=== PATIENT | male | born 1985 | race Hispanic/Latino ===

== ENCOUNTER 2024-10-09 18:20 | Emergency (ER) | payer MEDICAID ==
[~2024-10-09] VITALS: Ht 170.2 cm; Wt 68.0 kg
[2024-10-09 19:15] LABS: HEMATOCRIT 42.4 % (42-54); MEAN CORPUSCULAR HEMOGLOBIN 28.7 pg (27.0-33.0); MEAN CORPUSCULAR HGB CONC 34.4 g/dL (32.0-36.0); MEAN CORPUSCULAR VOLUME 83.5 fL (79-99); PLATELET COUNT (AUTO) 210 K/uL (130-400); RED BLOOD CELL COUNT(AUTO) 5.08 MIL/uL (4.50-6.20); RED CELL DISTRIBUTION WIDTH 13.2 % (11.0-15.5); WHITE BLOOD COUNT (AUTO) 5.7 K/uL (4.8-10.8)
[2024-10-09 19:23] LABS: CREATININE 0.9 mg/dL (0.5-1.3); POTASSIUM 3.9 mmol/L (3.5-5.1)
[2024-10-09 19:29] LABS: EOSINOPHILS % (MANUAL) 4 % (1-6); LYMPHOCYTES % (MANUAL) 31 % (22-44); MONOCYTES % (MANUAL) 7 % (2-9); SEGMENTED NEUTROPHILS % 58 % (40-70); TOTAL CELLS COUNTED 100
[2024-10-09 19:30] LABS: MAN.DIFF COMMENT-IMPRESSION MANUAL DIFFERENTIAL; PLATELET MORPHOLOGY COMMENT ADEQUATE
--- NOTE | 2024-10-09 20:08 | EKG ---
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
--- NOTE | 2024-10-09 20:31 | ERN ---
General Chief Complaint: Cellulitis Stated Complaint: SHARP PAIN IN RIGHT PEC Time Seen by MD: 18:22 Time Seen by Midlevel: 18:22 Source: patient History of Present Illness Initial Comments 39-year-old male who presents to the emergency department due to right-sided chest pain. Patient reports initiated approximately 2:30 p.m. as a burning sen sation. Denies any nausea, vomiting, abdominal pain, radiating pain or further associated symptoms. Denies any new product use, insect bite, or injuries. Patient reports previous similar episode to the left side. PMHx cerebral palsy Allergies: Coded Allergies: Iodinated Contrast Media (Unverified Allergy, Unknown, 10/09/24) Penicillins (Unverified Allergy, Unknown, 10/09/24) acetaminophen (Unverified Allergy, Unknown, 10/09/24) ceftriaxone (Unverified Allergy, Unknown, 10/09/24) Past Medical History Past Medical History: Other Medical History Other: CEREBRALPALSY Past Surgical History: Other Surgical History Other: SX A BABY ROS Dictation Constitutional: Negative for fever,chills, and weight loss Eyes: Negative for injury, pain,redness, and discharge ENT: Negative for injury,pain or swelling Cardiovascular: Positive for chest pain Negative for palpitations, and edema Respiratory: Negative for shortness of breath, cough, and wheezing, Abdomen/GI: Negative for abdominal pain, nausea, vomiting, diarrhea, and constipation Back: Negative for injury and pain : Negative for painful urination, bleeding or discharge MS/Extremity: Negative for injury and deformity Skin: Negative for rash, and discoloration Neuro: Negative for headache, weakness, numbness, tingling, and seizure Psych: Negative for suicide ideation, homicidal ideation, and hallucinations Physical Exam Physical Exam Dictation General: awake, alert, no acute distress Head/Face: Normocephalic, atraumatic Eyes: PERRL, EOMI, normal conjunctiva ENT: oral cavity clear, oral mucosa moist Neck: Normal range of motion, supple Chest: Pain reproducible on palpation to the right side of the chest Cardiovascular: RRR, normal S1/S2 Respiratory: CTAB, no respiratory distress, No rales or wheezes Skin: Warm, dry, normal turgor, no rash MS/Extremity: Pulses equal, no cyanosis, neurovascular intact, FROM Neuro: COAx4, GCS 15, no neurological deficits Psych: Normal behavior, mood, and affect normal Results Laboratory and Microbiology Lab and Micro Result Laboratory Tests Test 10/09/24 19:10 White Blood Count 5.7 K/uL (4.8-10.8) Red Blood Count 5.08 MIL/uL (4.50-6.20) Hemoglobin 14.6 g/dL (14.0-18.0) Hematocrit 42.4 % (42-54) Mean Corpuscular Volume 83.5 fL (79-99) Mean Corpuscular Hemoglobin 28.7 pg (27.0-33.0) Mean Corpuscular Hemoglobin Concent 34.4 g/dL (32.0-36.0) Red Cell Distribution Width 13.2 % (11.0-15.5) Platelet Count 210 K/uL (130-400) Mean Platelet Volume 11.4 fL (7.5-10.5) H Segmented Neutrophils % 58 % (40-70) Lymphocytes % (Manual) 31 % (22-44) Monocytes % (Manual) 7 % (2-9) Eosinophils % (Manual) 4 % (1-6) Nucleated Red Blood Cells 0.0 % (0.0-0.19) Differential Comment MANUAL DIFFERENTIAL White Cell Morphology Comment Platelet Morphology Comment ADEQUATE Red Blood Cell Morphology ANISO 1+ Sodium Level 136 mmol/L (136-145) Potassium Level 3.9 mmol/L (3.5-5.1) Chloride Level 101 mmol/L (101-111) Carbon Dioxide Level 32 mmol/L (21-32) Blood Urea Nitrogen 15 mg/dL (7-18) Creatinine 0.9 mg/dL (0.5-1.3) Glomerular Filtration Rate Calc 113 mL/min (>90) Random Glucose 100 mg/dL (70-105) Total Calcium 8.8 mg/dL (8.5-10.1) Troponin I High Sensitivity < 4 ng/L (4-75) L Labs Reviewed?: Yes EKG/XRAY/US/CT/MRI EKG Comment Date: 10/09/24 Time: 20:05 Rate:88 EKG interpretation: Normal sinus rhythm, no STEMI, normal EKG Reviewed by ED Attending MDM MDM: Differential diagnosis: Atypical chest pain, musculoskeletal chest pain, cellulitis Rationale: 39-year-old male who presents to the emergency department due to right-sided chest pain. Patient reports initiated approximately 2:30 p.m. as a burning sensation. Denies any nausea, vomiting, abdominal pain, radiating pain or further associated symptoms. Denies any new product use, insect bite, or injuries. Patient reports previous similar episode to the left side. PMHx cerebral palsy Mild scattered rash noted to the right pack for which family member states it is chronic. Per physical examination patient is in no acute distress, nonlabored breathing, pain is reproducible on palpation to the right chest. Labs obtained are nonspecific. EKG within normal limits. Negative troponin. Patient was educated on findings and diagnosis. Advised to follow up with PCP. Return to the emergency department if any worsening symptoms. Patient verbalized understanding. Patient stable for discharge. There are no social concerns with this patient. I independently interpreted the test that were performed, results were reviewed by me and considered findings on radiology if ordered. Medical management and examination interpretation discussions were had by me with other qualified healthcare professionals as indicated for the patient's care. ED Course Orders Procedure Category Date Status Time Chest 1vw RAD 10/09/24 Taken 18:59 Cbc W Manual Diff LAB 10/09/24 Complete 18:59 Basic Metabolic Panel LAB 10/09/24 Complete 18:59 Troponin I High LAB 10/09/24 Complete Sensitivity 18:59 12 Lead Ekg Tracing- EKG 10/09/24 Complete Technical 18:59 Ibuprofen 200 Mg PHA 10/09/24 Complete Tablet (Motrin) 19:30 Current Medications Medications (Trade) Dose Ordered Sig/Carmen Route PRN Reason Start Time Stop Time Status Last Admin Dose Admin Ibuprofen (moTRIN) 400 mg ONCE ONCE PO 10/09/24 19:30 10/09/24 19:32 DC Vital Signs Date Time Temp Pulse Resp B/P (MAP) Pulse Ox O2 Delivery O2 Flow Rate FiO2 10/09/24 18:24 98.1 100 16 124/66 99 Room Air 0 DX & DISP Disposition: Discharge Departure Impression: Primary Impression: Chest pain, atypical Additional Impression: Musculoskeletal chest pain Condition: Stable Additional Instructions: Discharge home. Rest. Follow up with primary care in 24 hours. Return to the ER for any acute changes or worsening symptoms. If any medications were prescribed take as directed. Okay to continue home medications unless otherwise discussed during your visit in the emergency room today. Patient was also advised to follow-up with primary care physician in 1 to 2 days for continued monitoring. Referrals: SELF,REFERRAL (PCP) I participated in the following activities of this patient's care: For this patient encounter, I reviewed the PA or HSE SPECIALIST documentation, treatment plan, and medical decision making. I did not have [id number] time with this patient. I will sign as the reviewing DrRegine And agree with the treatment plan and disposit ion. LAURA SOTELO Oct 09, 2024 20:31
--- NOTE | 2024-10-09 20:33 | HMCIMG ---
CHEST 1VW REASON: Chest pain COMPARISON: None. FINDINGS: Single view of the chest was obtained. Lungs are clear. Heart size is normal. There is no pulmonary vascular congestion. Mediastinum and bony thorax appear unremarkable. IMPRESSION: 1. Normal single view chest x-ray.
[2024-10-09] MEDS: ibuPROFEN 200 MG TAB PO ONE (20:39)
[2024-10-09 20:41] VITALS: BP 122/68; PULSE 92; RESP 16; TEMP 98.1; O2SAT 99
== END 2024-10-09 20:43 | disposition home or self-care (01) ==
LOC: EDH 18:20
DX: R07.89 Other chest pain (principal); Z88.0 Allergy status to penicillin; Z88.1 Allergy status to other antibiotic agents; Z91.041 Radiographic dye allergy status
CPT/HCPCS: 36415; 71045; 80048; 84484; 85025; 93005; 99285

== ENCOUNTER 2024-10-13 12:23 | Emergency (ER) | payer MEDICAID ==
[~2024-10-13] VITALS: Ht 170.2 cm; Wt 68.0 kg
[2024-10-13 12:43] VITALS: BP 146/86; PULSE 86; RESP 20; TEMP 98.6; O2SAT 100
[2024-10-13 13:09] LABS: APPEARANCE,URINE CLEAR (CLEAR); BILIRUBIN,URINE NEGATIVE (NEGATIVE); COLOR,URINE LIGHT-YELLOW (YELLOW); GLUCOSE, URINE (UA) NEGATIVE (NEGATIVE); KETONES,URINE NEGATIVE (NEGATIVE); LEUKOCYTE ESTERASE ,URINE NEGATIVE Leu/uL (NEGATIVE); MUCUS,URINE RARE LPF (None Seen); NITRATE,URINE NEGATIVE (NEGATIVE); OCCULT BLOOD,URINE NEGATIVE (NEGATIVE); PH,URINE 6.5 (5.0-8.0); PROTEIN,URINE NEGATIVE (NEGATIVE); RBC,URINE 0-1 /HPF (0-1); UROBILINOGEN,URINE 0.2 mg/dL (0.2-1.0); WBC,URINE 0-1 /HPF (0-1)
[2024-10-13] MEDS: NAPROXEN 500 MG TABLET PO ONE (13:29)
--- NOTE | 2024-10-13 13:33 | ERN ---
General Chief Complaint: Painful Urination Stated Complaint: POSSIBLE UTI Source: patient, family History of Present Illness Initial Comments Patient is a 39-year-old male coming in to be evaluated for urine discomfort. He states that he has been having to discomfort for a couple of days states he came in for evaluation to see if he might have a UTI. No fever no chills no nausea no vomiting. Allergies: Coded Allergies: Iodinated Contrast Media (Unverified Allergy, Unknown, 10/09/24) Penicillins (Unverified Allergy, Unknown, 10/09/24) acetaminophen (Unverified Allergy, Unknown, 10/09/24) ceftriaxone (Unverified Allergy, Unknown, 10/09/24) Past Medical History Past Medical History: Other Medical History Other: CEREBRALPALSY Past Surgical History: Other Surgical History Other: SX A BABY ROS Dictation CONSTITUTIONAL: No chills, no fever, no weakness, no diaphoresis, no malaise. HEAD/FACE: No signs of trauma. EENT: No eye pain, no blurred vision, no tearing, no double vision, no ear p ain, no ear discharge, no nose pain, no nasal congestion, no throat pain, no throat swelling, no mouth pain. RESPIRATORY: No cough, no orthopnea, no SOB, no stridor, no wheezing. CARDIOVASCULAR: No chest pain, no edema, no palpitations, no syncope. GASTROINTESTINAL/ABDOMINAL: No abdominal pain, no constipation, no diarrhea, no nausea, no vomiting. GENITOURINARY: No abnormal discharge, no dysuria, no frequent urination, no hematuria. No complaints of pain in the genitals. MUSCULOSKELETAL: No back pain, no gout, no joint pain, no joint swelling, no muscle pain, no muscle stiffness, no neck pain. INTEGUMENTARY: No change in color, no change in hair/nails, no dryness, no lesion, no lumps, no rash. NEUROLOGICAL/PSYCH: No anxiety, not depressed, no emotional problem, no headache, no numbness, no pre-existing deficit, no history of seizures, no tremors, no weakness. HEMATOLOGIC/LYMPHATIC: Not anemic, no history of blood clots, no apparent bleeding, no bruising, glands not swollen. All Systems Negative, Except as Noted. Physical Exam Physical Exam Dictation VITAL SIGNS: Reviewed. GENERAL APPEARANCE: Alert, oriented x3, no acute distress, obese. HEAD AND FACE: Non-traumatic. EYES: PERRL, pink conjunctivas, eyelid no trauma, anterior chamber clear. EARS: Pinnas intact and no signs of trauma or erythema. Ear canals clear and no discharge. TMs no erythema. NOSE: No discharge, no bleeding. OROPHARYNX: Mouth normal, teeth no caries, tongue pink. Pharynx clear, no erythema. Tonsils no exudates, no abscesses noted. Mucous membrane moist. NECK: Supple, non-tender, no thyromegaly, no masses, no JVD, no bruits. BREAST: Deferred. CHEST: No tenderness, no crepitus, no paradoxical movement, no retractions. LUNGS: Clear, well-ventilated, symmetric, no rales, no wheezing, no rhonchi, no stridor, good breath sounds bilaterally. HEART: Regular rate, regular rhythm, no murmur, no gallops. VASCULAR: No peripheral edema. ABDOMEN: Soft, positive bowel sounds, nondistended, no guarding, nontender, no rebound, no masses no hepatomegaly, no splenomegaly, no Lamar's sign, no hernias. RECTAL: Deferred. GENITAL: Deferred. NEUROLOGICAL: Normal speech, gross motor function intact, gross sensory function intact. MUSCULOSKELETAL: Neck nontender, full range of motion, back nontender, full range of motion. EXTREMITIES: Nontender, full range of motion. SKIN: Color pink, dry, no turgor, no rash, no lacerations, no abrasions, no contusions. LYMPHATICS: Deferred. Results Laboratory and Microbiology Lab and Micro Result Laboratory Tests Test 10/13/24 12:44 Urine Color LIGHT-YELLOW (YELLOW) Urine Appearance CLEAR (CLEAR) Urine pH 6.5 (5.0-8.0) Urine Specific [place] 1.020 (1.001-1.031) Urine Protein NEGATIVE mg/dL (NEGATIVE) Urine Glucose (UA) NEGATIVE mg/dL (NEGATIVE) Urine Ketones NEGATIVE mg/dL (NEGATIVE) Urine Occult Blood NEGATIVE (NEGATIVE) Urine Nitrate NEGATIVE (NEGATIVE) Urine Bilirubin NEGATIVE mg/dL (NEGATIVE) Urine Urobilinogen 0.2 mg/dL (0.2-1.0) Urine Leukocyte Esterase NEGATIVE Nito/uL Urine RBC 0-1 /HPF (0-1) Urine WBC 0-1 /HPF (0-1) Urine Bacteria None /HPF (None Seen) Labs Reviewed?: Yes MDM MDM: Differential diagnosis: Dysuria, UTI, dehydration, Patient is a 39-year-old gentleman coming in to be evaluated for dysuria. Per patient he has been having dysuria and believes he might have a UTI. Urinary analysis negative for UTI. Patient will be discharged in stable condition. I advised him appropriate follow up with PCP in 1-2 days. ED Course Orders Procedure Category Date Status Time Urinalysis LAB 10/13/24 Complete W/Microscopic 12:49 Naproxen (Naprosyn) PHA 10/13/24 Complete 13:00 Current Medications Medications (Trade) Dose Ordered Sig/Carmen Route PRN Reason Start Time Stop Time Status Last Admin Dose Admin Naproxen (Naprosyn) 500 mg ONCE ONCE PO 10/13/24 13:00 10/13/24 13:01 DC 10/13/24 13:29 Vital Signs Date Time Temp Pulse Resp B/P (MAP) Pulse Ox O2 Delivery O2 Flow Rate FiO2 10/13/24 12:43 98.6 86 20 146/86 100 Room Air* 0 21 10/13/24 12:40 97.9 91 16 143/83 100 Room Air 0 DX & DISP Disposition: Discharge Departure Impression: Primary Impression: Dehydration Additional Impression: History of dysuria Condition: Stable Additional Instructions: FOLLOW-UP WITH PRIMARY CARE PROVIDER IN 1 TO 2 DAYS. TAKE MEDICATIONS DIRECTED HERE IN THE EMERGENCY ROOM. OKAY TO CONTINUE HOME MEDICATIONS UNLESS OTHERWISE DISCUSSED DURING YOUR VISIT IN THE EMERGENCY ROOM TODAY. RETURN TO YOUR NEAREST EMERGENCY ROOM IF SYMPTOMS WORSEN OR IF THERE IS NO IMPROVEMENT. CALL 911 IF YOU NEED IMMEDIATE ASSISTANCE. TAKE TYLENOL [id number] NEEDED AND IF NO CONTRAINDICATIONS ARE PRESENT. INCREASE ORAL HYDRATION. A WOUND CULTURE OR URINE CULTURE WAS ORDERED HERE IN THE EMERGENCY ROOM DEPARTMENT PLEASE FOLLOW-UP WITH PRIMARY CARE PROVIDER AND ADVISE THEM TO GET REPEAT PORTS FROM OUR FACILITY. IF YOU HAD ANY EHSAN WRAP/SPLINTS THAT WERE APPLIED HERE, PL EASE DO NOT REMOVE THEM UNTIL YOU SEE YOUR PRIMARY CARE OR SPECIALTY. Referrals: Referrals: FABI NIELSEN MD (PCP) Time of Disposition: 13:33 BAYRON AGOSTO MD Oct 13, 2024 13:33
== END 2024-10-13 13:35 | disposition home or self-care (01) ==
LOC: EDH 12:23
DX: E86.0 Dehydration (principal); Z88.0 Allergy status to penicillin; Z88.1 Allergy status to other antibiotic agents; Z91.041 Radiographic dye allergy status; Z98.890 Other specified postprocedural states
CPT/HCPCS: 81001; 99283

== ENCOUNTER 2024-10-19 10:35 | Emergency (ER) | payer MEDICAID ==
[~2024-10-19] VITALS: Ht 170.2 cm; Wt 68.0 kg
--- NOTE | 2024-10-19 10:41 | ERN ---
ED Note History of Present Illness Stated Complaint: DEHYDRATED, FATIGUE Chief Complaint: Fatigue Time Seen by MD: 10:36 Dictation: PATIENT IS A 39-YEAR-OLD MALE HERE WITH HIS FATHER WITH COMPLAINTS OF BEING THIRSTY AND FEELING WEAK FOR THE LAST SEVERAL WEEKS. NO NAUSEA VOMITING NO DIARRHEA NO FEVER NO CHILLS. HE STATES HE HAS ALREADY BEEN TO [facility] ON THE September AND WAS TOLD TO GO SEE HIS PRIMARY CARE DOCTOR HOWEVER WHEN HE SAW HIS PRIMARY CARE DOCTOR THEY DID NOT DO ANYTHING ABOUT IT. THEY TOLD HIM JUST TO DRINK SOME WATER. Allergies: Coded Allergies: Iodinated Contrast Media (Unverified Allergy, Unknown, 10/09/24) Penicillins (Unverified Allergy, Unknown, 10/09/24) acetaminophen (Unverified Allergy, Unknown, 10/09/24) ceftriaxone (Unverified Allergy, Unknown, 10/09/24) Past Medical History Past Medical History: Other Additional Past Medical Hx: CEREBRALPALSY Surgical History: Other Surgical History Other: SX A BABY RN Note Reviewed/Agreed w/PFSH: Yes Review of System Dictation CONSTITUTIONAL: NEGATIVE EXCEPT FOR HPI WEAKNESS/THIRST HEAD/FACE: NEGATIVE EXCEPT FOR HPI EENT: NEGATIVE EXCEPT FOR HPI RESPIRATORY: NEGATIVE EXCEPT FOR HPI GASTROINTESTINAL/ABDOMINAL: NEGATIVE EXCEPT FOR HPI GENITOURINARY: NEGATIVE EXCEPT FOR HPI MUSCULOSKELETAL: NEGATIVE EXCEPT FOR HPI INTEGUMENTARY: NEGATIVE EXCEPT FOR HPI NEUROLOGICAL/PSYCH: NEGATIVE EXCEPT FOR HPI HEMATOLOGIC/LYMPHATIC: NEGATIVE EXCEPT FOR HPI ALL SYSTEMS NEGATIVE, EXCEPT NOTED ABOVE. 13 POINT REVIEW OF SYSTEMS ASSESSED AND ALL NEGATIVE EXCEPT FOR ABOVE. Initial Vital Sign VS Vital Signs Date Time Temp Pulse Resp B/P (MAP) Pulse Ox O2 Delivery O2 Flow Rate FiO2 10/19/24 10:40 98.2 83 18 111/72 100 Room Air 10/19/24 11:45 0 21 Physical Exam Dictation VITAL SIGNS REVIEWED GENERAL APPEARANCE: ALERT, ORIENTED X 3, NO ACUTE DISTRESS, WELL DEVELOPED, NOURISHED. HEAD AND FACE: NON-TRAUMATIC. EYES: PERRL, PINK CONJUNCTIVAS, EYELID NO TRAUMA, ANTERIOR CHAMBER WITH ARCUS SENILIS. EARS: PINNAS INTACT AND NO SIGNS OF TRAUMA OR ERYTHEMA EAR CANALS CLEAR AND NO DISCHARGE TM NO ERYTHEMA NOSE: NO DISCHARGE, NO BLEEDING. OROPHARYNX: MOUTH NORMAL, TONGUE PINK, PHARYNX CLEAR,NO ERYTHEMA, TONSILS NO EXUDATES, NO ABSCESSES NOTED, MUCOUS MEMBRANE MOIST NECK: SUPPLE, NON-TENDER, NO THYROMEGALY, NO MASSES, NO JVD, NO BRUITS BREAST:DEFERRED CHEST:NO TENDERNESS, NO CREPITUS, NO PARADOXICAL MOVEMENT, NO RETRACTIONS LUNGS:CLEAR, WELL-VENTILATED, SYMMETRIC, NO RALES, NO WHEEZING, NO RHONCHI, NO STRIDOR, GOOD BREATH SOUNDS BILATERALLY HEART: REGULAR RATE, REGULAR RHYTHM, NO MURMUR, NO GALLOPS VASCULAR: NO PERIPHERAL EDEMA, ABDOMEN: SOFT, POSITIVE BOWEL SOUNDS, NONDISTENDED, NO GUARDING, NONTENDER, NO REBOUND, NO MASSES NO HEPATOMEGALY, NO SPLENOMEGALY, NO NARVAEZ'S SIGN, NO HERNIAS. RECTAL: DEFERRED GENITAL: DEFERRED NEUROLOGICAL: NORMAL SPEECH, MOTOR FUNCTION INTACT, SENSORY FUNCTION INTACT MUSCULOSKELETAL: NECK NONTENDER, FULL RANGE OF MOTION, BACK NONTENDER, FULL RANGE OF MOTION, EXTREMITIES: NONTENDER, FULL RANGE OF MOTION SKIN: COLOR PINK, DRY, NO TURGOR, NO RASH, NO LACERATIONS, NO ABRASIONS, NO CONTUSIONS. LYMPHATIC: DEFERRED Results (Laboratory/Radiology) Laboratory/Radiology Laboratory Tests Test 10/19/24 11:12 10/19/24 11:29 Urine Color YELLOW (YELLOW) Urine Appearance CLEAR (CLEAR) Urine pH 6.0 (5.0-8.0) Urine Specific [place] 1.029 (1.001-1.031) Urine Protein 10 mg/dL (NEGATIVE) H Urine Glucose (UA) 30 mg/dL (NEGATIVE) H Urine Ketones 60 mg/dL (NEGATIVE) H Urine Occult Blood NEGATIVE (NEGATIVE) Urine Nitrate NEGATIVE (NEGATIVE) Urine Bilirubin NEGATIVE mg/dL (NEGATIVE) Urine Urobilinogen 3 mg/dL (0.2-1.0) H Urine Leukocyte Esterase NEGATIVE Nito/uL Urine RBC 2-5 /HPF (0-1) H Urine WBC 0-1 /HPF (0-1) Urine Squamous Epithelial Cells RARE /HPF (0-2) Urine Bacteria None /HPF (None Seen) White Blood Count 4.9 K/uL (4.8-10.8) Red Blood Count 5.13 MIL/uL (4.50-6.20) Hemoglobin 14.5 g/dL (14.0-18.0) Hematocrit 43.5 % (42-54) Mean Corpuscular Volume 84.8 fL (79-99) Mean Corpuscular Hemoglobin 28.3 pg (27.0-33.0) Mean Corpuscular Hemoglobin Concent 33.3 g/dL (32.0-36.0) Red Cell Distribution Width 13.1 % (11.0-15.5) Platelet Count 190 K/uL (130-400) Mean Platelet Volume 11.1 fL (7.5-10.5) H Nucleated Red Blood Cells 0.0 % (0.0-0.19) Sodium Level 137 mmol/L (136-145) Potassium Level 4.2 mmol/L (3.5-5.1) Chloride Level 101 mmol/L (101-111) Carbon Dioxide Level 32 mmol/L (21-32) Blood Urea Nitrogen 16 mg/dL (7-18) Creatinine 0.9 mg/dL (0.5-1.3) Glomerular Filtration Rate Calc 113 mL/min (>90) Random Glucose 87 mg/dL (70-105) Total Calcium 8.8 mg/dL (8.5-10.1) Labs Reviewed?: Yes ED Course ED Course Orders Procedure Category Date Status Time Cbc Without LAB 10/19/24 Complete Differential 10:39 Basic Metabolic Panel LAB 10/19/24 Complete 10:39 Urinalysis Profile LAB 10/19/24 Complete 10:45 Vital Signs Date Time Temp Pulse Resp B/P (MAP) Pulse Ox O2 Delivery O2 Flow Rate FiO2 10/19/24 11:45 98.2 80 16 112/70 98 Room Air* 0 21 10/19/24 10:40 98.2 83 18 111/72 100 Room Air 1150/LABS ARE COMPLETELY UNREMARKABLE NO DEHYDRATION NO ELECTROLYTE IMBALANCE NO INFECTION NO ANEMIA PATIENT DISCHARGED HOME WITH HIS FATHER TO FOLLOW UP WITH HIS DOCTOR AT [facility] Medical Decision Making MDM MEDICAL DISCHARGE MAKING BASED ON BASIC LABS TO RULE OUT ELECTROLYTE IMBALANCE DEHYDRATION OR ANEMIA. ALL LABS ARE NEGATIVE. PATIENT DISCHARGED HOME WITH DIAGNOSIS OF WEAKNESS AND TO SEE HIS PRIMARY CARE DOCTOR AT [facility] DX & DISP Disposition: Discharge Departure Impression: Primary Impression: Weakness generalized Additional Impression: History of cerebral palsy Condition: Stable Additional Instructions: FOLLOW-UP WITH PRIMARY CARE PROVIDER IN 1 TO 2 DAYS. TAKE MEDICATIONS DIRECTED HERE IN THE EMERGENCY ROOM. OKAY TO CONTINUE HOME MEDICATIONS UNLESS OTHERWISE DISCUSSED DURING YOUR VISIT IN THE EMERGENCY ROOM TODAY. RETURN TO YOUR NEAREST EMERGENCY ROOM IF SYMPTOMS WORSEN OR IF THERE IS NO IMPROVEMENT. CALL 911 IF YOU NEED IMMEDIATE ASSISTANCE. TAKE TYLENOL OR MOTRIN [id number] NEEDED AND IF NO CONTRAINDICATIONS ARE PRESENT. INCREASE ORAL HYDRATION. A WOUND CULTURE OR URINE CULTURE WAS ORDERED HERE IN THE EMERGENCY ROOM DEPARTMENT PLEASE FOLLOW-UP WITH PRIMARY CARE PROVIDER AND ADVISE THEM TO GET REPEAT PORTS FROM OUR FACILITY. IF YOU HAD ANY EHSAN WRAP/SPLINTS THAT WERE APPLIED HERE, PLEASE DO NOT REMOVE THEM UNTIL YOU SEE YOUR PRIMARY CARE OR SPECIALTY. CONTINUE ALL YOUR MEDICATIONS AND TREATMENTS AT HOME FROM YOUR PRIMARY CARE DO CTOR AND SEE HIM TOMORROW FOR MANAGEMENT. Referrals: FABI NIELSEN MD (PCP) Time of Disposition: 11:55 I have reviewed the case, and I agree with, Diagnosis and Plan I performed a substantive portion of the visit. I have reviewed and personally made and approve the management plan that is documented in the notes by myself with JOÃO/resident. I acknowledged full responsibility for the patient's management plan. SARI STROUD NP Oct 19, 2024 10:41 PHYLLIS SRINIVASAN DO Oct 19, 2024 14:53
[2024-10-19 11:29] LABS: APPEARANCE,URINE CLEAR (CLEAR); BILIRUBIN,URINE NEGATIVE (NEGATIVE); COLOR,URINE YELLOW (YELLOW); GLUCOSE, URINE (UA) 30 mg/dL (NEGATIVE); KETONES,URINE 60 mg/dL (NEGATIVE); LEUKOCYTE ESTERASE ,URINE NEGATIVE Leu/uL (NEGATIVE); NITRATE,URINE NEGATIVE (NEGATIVE); OCCULT BLOOD,URINE NEGATIVE (NEGATIVE); PROTEIN,URINE 10 mg/dL (NEGATIVE); UROBILINOGEN,URINE 3 mg/dL (0.2-1.0)
[2024-10-19 11:30] LABS: ADD UA MICROSCOPIC YES
[2024-10-19 11:40] LABS: HEMATOCRIT 43.5 % (42-54); MEAN CORPUSCULAR HEMOGLOBIN 28.3 pg (27.0-33.0); MEAN CORPUSCULAR HGB CONC 33.3 g/dL (32.0-36.0); MEAN CORPUSCULAR VOLUME 84.8 fL (79-99); RED BLOOD CELL COUNT(AUTO) 5.13 MIL/uL (4.50-6.20); RED CELL DISTRIBUTION WIDTH 13.1 % (11.0-15.5); WHITE BLOOD COUNT (AUTO) 4.9 K/uL (4.8-10.8)
[2024-10-19 11:45] VITALS: BP 112/70; PULSE 80; RESP 16; TEMP 98.3; O2SAT 98
[2024-10-19 11:47] LABS: CREATININE 0.9 mg/dL (0.5-1.3); POTASSIUM 4.2 mmol/L (3.5-5.1)
[2024-10-19 11:48] LABS: MUCUS,URINE RARE LPF (None Seen); SQUAMOUS EPITHELIAL CELL,UR RARE /HPF (0-2); WBC,URINE 0-1 /HPF (0-1)
== END 2024-10-19 12:14 | disposition home or self-care (01) ==
LOC: EDH 10:35
DX: R53.1 Weakness (principal); G80.9 Cerebral palsy, unspecified; Z88.0 Allergy status to penicillin; Z88.1 Allergy status to other antibiotic agents; Z91.041 Radiographic dye allergy status
CPT/HCPCS: 36415; 80048; 81001; 85027; 99283

== ENCOUNTER 2024-10-23 23:08 | Emergency (ER) | payer MEDICAID ==
[~2024-10-23] VITALS: Ht 170.2 cm; Wt 68.0 kg
--- NOTE | 2024-10-23 23:27 | NUR ---
PER PT REQUEST NO IV INSERTION AT THIS TIME. PT WAS EDUCATED ABOUT THE IMPORTANCE OF IV INSERTION. PT VERBILIZED UNDERSTANDING OF EDUCATION. MILO BARLOW MADE AWARE.
[2024-10-23 23:41] LABS: BASOPHILS # (AUTO) 0.04 K/uL (0.00-0.20); BASOPHILS % (AUTO) 0.6 % (0.0-5.0); EOSINOPHILS # (AUTO) 0.24 K/uL (0.00-0.70); EOSINOPHILS % (AUTO) 3.6 % (0.0-8.0); HEMATOCRIT 44.2 % (42-54); IMMATURE GRANULOCYTE ABSOLUTE 0.02 K/uL (0-1); LYMPHOCYTES # (AUTO) 2.1 K/uL (1.0-4.8); LYMPHOCYTES % (AUTO) 31.1 % (21.0-51.0); MEAN CORPUSCULAR HEMOGLOBIN 28.2 pg (27.0-33.0); MEAN CORPUSCULAR HGB CONC 32.8 g/dL (32.0-36.0); MEAN CORPUSCULAR VOLUME 85.8 fL (79-99); MONOCYTES # (AUTO) 0.6 K/uL (0.1-1.0); MONOCYTES % (AUTO) 9.3 % (3.0-13.0); NEUTROPHILS # (AUTO) 3.7 K/uL (1.8-7.7); NEUTROPHILS % (AUTO) 55.1 % (40.0-77.0); PLATELET COUNT (AUTO) 209 K/uL (130-400); RED BLOOD CELL COUNT(AUTO) 5.15 MIL/uL (4.50-6.20); RED CELL DISTRIBUTION WIDTH 13.3 % (11.0-15.5); WHITE BLOOD COUNT (AUTO) 6.7 K/uL (4.8-10.8)
[2024-10-24] LABS: CREATININE 0.9 mg/dL (0.5-1.3); POTASSIUM 3.6 mmol/L (3.5-5.1)
[2024-10-24 00:06] LABS: B-TYPE NATRIURETIC PEPTIDE < 5 pg/mL (0-100)
--- NOTE | 2024-10-24 01:44 | ERN ---
ED Note History of Present Illness Stated Complaint: C/O CP WITH HEADACHE Chief Complaint: Chest Pain Time Seen by MD: 23:59 Time Seen by Midlevel: 23:59 Dictation: The patient is a 39-year-old male with a history of cerebral palsy who presents to the emergency department with complaints of right-sided chest pain onset 4:00 p.m.. Patient reports a sensation of bricks that only last a few seconds and then go away. Patient reports he had a headache prior to arrival but is now resolved. Denies any shortness of breath, cough, fevers, nausea or vomiting, dizziness. Patient denies any head trauma. Allergies: Coded Allergies: Iodinated Contrast Media (Unverified Allergy, Unknown, 10/09/24) Penicillins (Unverified Allergy, Unknown, 10/09/24) acetaminophen (Unverified Allergy, Unknown, 10/09/24) ceftriaxone (Unverified Allergy, Unknown, 10/09/24) Past Medical History Past Medical History: Other Additional Past Medical Hx: HX OF CEREBRAL PALSY Surgical History: Other Surgical History Other: SX A BABY RN Note Reviewed/Agreed w/PFSH: Yes Review of System Dictation Constitutional: Negative for fever,chills, and weight loss Eyes: Negative for injury, pain,redness, and discharge ENT: Negative for injury,pain or swelling Cardiovascular: Negative for , palpitations, and edema positive for chest pain Respiratory: Negative for shortness of breath, cough, and wheezing, Abdomen/GI: Negative for abdominal pain, nausea, vomiting, diarrhea, and constip ation Back: Negative for injury and pain : Negative for injury, bleeding and discharge MS/Extremity: Negative for injury and deformity Skin: Negative for rash, and discoloration Neuro: Negative for headache, weakness, numbness, tingling, and seizure Psych: Negative for suicide ideation, homicidal ideation, and hallucinations Initial Vital Sign VS Vital Signs Date Time Temp Pulse Resp B/P (MAP) Pulse Ox O2 Delivery O2 Flow Rate FiO2 10/23/24 23:16 98.2 82 20 117/64 97 Room Air 10/23/24 23:27 0 21 Physical Exam Dictation Vital Signs reviewed General Appearance: Alert, oriented x 3, no acute distress, well developed, nourished. Head and Face: non-traumatic. Eyes: PERRL, pink conjunctivas, eyelid no trauma, anterior chamber with arcus senilis. Ears: Pinnas intact and no signs of trauma or erythema ear canals clear and no discharge TM no erythema Nose: No discharge, no bleeding. Oropharynx: Mouth normal, tongue pink. pharynx clear,no erythema, tonsils no exudates, no abscesses noted, mucous membrane moist Neck: Supple, non-tender, no thyromegaly, no masses, no JVD, no bruits Breast:Deferred Chest:No tenderness, no crepitus, no paradoxical movement, no retractions Lungs:Clear, well-ventilated, symmetric, no rales, no wheezing, no rhonchi, no stridor, good breath sounds bilaterally Heart: Regular rate, regular rhythm, no murmur, no gallops Vascular: no peripheral edema, Abdomen: Soft, positive bowel sounds, nondistended, no guarding, nontender, no rebound, no masses no hepatomegaly, no splenomegaly, no Lamar's sign, no hernias. Rectal: Deferred Genital: Deferred Neurological: Normal speech, , sensory function intact Musculoskeletal: Neck nontender, full range of motion, back nontender, full range of motion, Extremities: nontender, limited range of motion to bilateral lower extremities, no swelling Skin: Color pink, dry, no turgor, no rash, no lacerations, no abrasions, no contusions. Lymphatic: Deferred Results (Laboratory/Radiology) Laboratory/Radiology Laboratory Tests Test 10/23/24 23:26 10/24/24 00:00 10/24/24 00:34 White Blood Count 6.7 K/uL (4.8-10.8) Red Blood Count 5.15 MIL/uL (4.50-6.20) Hemoglobin 14.5 g/dL (14.0-18.0) Hematocrit 44.2 % (42-54) Mean Corpuscular Volume 85.8 fL (79-99) Mean Corpuscular Hemoglobin 28.2 pg (27.0-33.0) Mean Corpuscular Hemoglobin Concent 32.8 g/dL (32.0-36.0) Red Cell Distribution Width 13.3 % (11.0-15.5) Platelet Count 209 K/uL (130-400) Mean Platelet Volume 11.5 fL (7.5-10.5) H Immature Granulocyte % (Auto) 0.3 % (0-1) Neutrophils (%) (Auto) 55.1 % (40.0-77.0) Lymphocytes (%) (Auto) 31.1 % (21.0-51.0) Monocytes (%) (Auto) 9.3 % (3.0-13.0) Eosinophils (%) (Auto) 3.6 % (0.0-8.0) Basophils (%) (Auto) 0.6 % (0.0-5.0) Neutrophils # (Auto) 3.7 K/uL (1.8-7.7) Lymphocytes # (Auto) 2.1 K/uL (1.0-4.8) Monocytes # (Auto) 0.6 K/uL (0.1-1.0) Eosinophils # (Auto) 0.24 K/uL (0.00-0.70) Basophils # (Auto) 0.04 K/uL (0.00-0.20) Absolute Immature Granulocyte (auto 0.02 K/uL (0-1) Nucleated Red Blood Cells 0.0 % (0.0-0.19) Sodium Level 137 mmol/L (136-145) Potassium Level 3.6 mmol/L (3.5-5.1) Chloride Level 102 mmol/L (101-111) Carbon Dioxide Level 29 mmol/L (21-32) Blood Urea Nitrogen 19 mg/dL (7-18) H Creatinine 0.9 mg/dL (0.5-1.3) Glomerular Filtration Rate Calc 113 mL/min (>90) Random Glucose 89 mg/dL (70-105) Total Calcium 9.3 mg/dL (8.5-10.1) Total Creatine Kinase 45 U/L (21-232) B-Type Natriuretic Peptide < 5 pg/mL (0-100) Troponin I < 0.05 ng/mL (0.00-0.05) Troponin I High Sensitivity < 4 ng/L (4-75) L Lipase 55 U/L (16-77) Labs Reviewed?: Yes EKG: (+) rhythm (Sinus rhythm) EKG Comment: Date:10/23/24 Time:2313 Ventricular rate:74 MS interval:131 QRS duration:89 QT/QTc:352 EKG interpretation: Sinus rhythm Reviewed by ED Attending no STEMI ED Course ED Course Orders Procedure Category Date Status Time Vital Signs Per CPOE 10/23/24 Transmitted Routine 23:15 B-Type Natriuretic LAB 10/23/24 Complete Peptide 23:15 Chest 1vw RAD 10/23/24 Taken 23:15 12 Lead Ekg Tracing- EKG 10/23/24 Logged Technical 23:15 Oxygen By Nc/Pulse Ox CPOE 10/23/24 Transmitted 23:15 Maintain Iv CPOE 10/23/24 Transmitted 23:15 Iv Insertion CPOE 10/23/24 Transmitted 23:15 Cardiac Monitoring CPOE 10/23/24 Transmitted 23:15 Pulse Oximetry With CPOE 10/23/24 Transmitted Vs And Prn 23:15 Cbc With Differential LAB 10/23/24 Complete 23:15 Activity: Br W/Brp CPOE 10/23/24 Transmitted With Assist 23:15 Creatine Kinase, Total LAB 10/23/24 Complete 23:15 Urinalysis Profile LAB 10/23/24 In Process 23:15 Troponin Poc Order LAB 10/23/24 Complete Only 23:15 Bedside Troponin-I LAB.ER 10/23/24 In Process (Poc) 23:15 Basic Metabolic Panel LAB 10/23/24 Complete 23:15 Lipase LAB 10/24/24 Complete 00:11 Troponin I High LAB 10/24/24 Complete Sensitivity 00:11 Vital Signs Date Time Temp Pulse Resp B/P (MAP) Pulse Ox O2 Delivery O2 Flow Rate FiO2 10/24/24 00:36 83 15 108/75 96 Room Air* 0 10/23/24 23:27 97.5 87 16 122/84 Room Air* 0 10/23/24 23:16 98.2 82 20 117/64 97 Room Air HEART Score Response (Comments) Value History: Low suspicion (0) 0 EKG: Normal 0 Age: < 45yrs (0) 0 Risk Factors: No known risk factors (0) 0 Initial Troponin: Normal limit (0) 0 HEART Score Risk: Low Risk for MACE (1-3) Total 0 Medical Decision Making MDM The patient is a 39-year-old male with a history of cerebral palsy who presents to the emergency department with complaints of right-sided chest pain onset 4:00 p.m.. Patient reports a sensation of bricks that only last a few seconds and then go away. Patient reports he had a headache prior to arrival but is now resolved. Denies any shortness of breath, cough, fevers, nausea or vomiting, dizziness. Patient denies any head trauma. CBC showed no leukocytosis, no anemia, chemistry showed no electrolyte imbalance, normal renal function, negative lipase, negative troponin x2. Patient reassessed reports no longer having any chest pain. Patient in no acute distress. Stable vital signs. Patient was seen here in September for same issue. Low cardiac risk score Patient instructed to follow up with primary doctor. Differential diagnosis: ACS, pneumonia, pneumothorax, gastritis Need for hospitalization: Patient does not meet criteria for hospitalization. There are no social concerns with this patient. DX & DISP Disposition: Discharge Departure Impression: Primary Impression: Chest pain, atypical Condition: Stable Additional Instructions: Please follow up with your primary doctor in 1-2 days. If symptoms worsen please return to ER. WITH PRIMARY CARE PROVIDER IN 1 TO 2 DAYS. TAKE MEDICATIONS DIRECTED HERE IN THE EMERGENCY ROOM. OKAY TO CONTINUE HOME MEDICATIONS UNLESS OTHERWISE DISCUSSED DURING YOUR VISIT IN THE EMERGENCY ROOM TODAY. RETURN TO YOUR NEAREST EMERGENCY ROOM IF SYMPTOMS WORSEN OR IF THERE IS NO IMPROVEMENT. CALL 911 IF YOU NEED IMMEDIATE ASSISTANCE. TAKE TYLENOL [id number] NEEDED AND IF NO CONTRAINDICATIONS ARE PRESENT. INCREASE ORAL HYDRATION. A WOUND CULTURE OR URINE CULTURE WAS ORDERED HERE IN THE EMERGENCY ROOM DEPARTMENT PLEASE FOLLOW-UP WITH PRIMARY CARE PROVIDER AND ADVISE THEM TO GET REPEAT PORTS FROM OUR FACILITY. IF YOU HAD ANY EHSAN WRAP/SPLINTS THAT WERE APPLIED HERE, PLEASE DO NOT REMOVE THEM UNTIL YOU SEE YOUR PRIMARY CARE OR SPECIALTY. Referrals: FABI NIELSEN MD (PCP) Time of Disposition: 01:43 I have reviewed the case, and I agree with, Diagnosis and Plan JUAN RAMÍREZ [facility] Oct 24, 2024 01:44
[2024-10-24 01:57] VITALS: BP 104/63; PULSE 81; RESP 15; TEMP 98.3; O2SAT 96
--- NOTE | 2024-10-24 02:05 | NUR ---
PER EXECUTIVE CANDIDATE DEVELOPER CAIN PT IS READY FOR DISCHARGE AT THIS TIME.
--- NOTE | 2024-10-24 06:33 | EKG ---
[facility] Test Date: 2024-10-23 Test Time: 23:13:46 Pat Name: SHIVAM FARIAS Department: ED Room: Gender: Principal Law Clerk: 08 : 1985 Requested By: ANDRY MUHAMMAD Order Number: [id number] Reading MD: Zuhair Rust Measurements Intervals [place] Rate: 74 P: 45 LA: 131 QRS: 61 QRSD: 89 T: 43 QT: 352 QTc: 392 Interpretive Statements Sinus rhythm Compared to ECG 10/09/2024 20:05:06 No significant changes Electronically Signed On 10-25-2024 12:45:44 LUBE ATTENDANT by Zuhair Rust Please click the below link to view image of tracing.
--- NOTE | 2024-10-24 08:53 | HMCIMG ---
PORTABLE CHEST RADIOGRAPH INDICATION: CHEST PAIN COMPARISON: 10/09/2024 FINDINGS: cheese tester leads overlie the field of view. Heart size is normal. The pulmonary vascularity and sophy appear normal. No abnormal pulmonary parenchymal opacity or consolidation identified. No significant pleural effusion noted. No pneumothorax detected. IMPRESSION: No radiographic evidence for any acute cardiopulmonary process.
== END 2024-10-24 02:12 | disposition home or self-care (01) ==
LOC: EDH 23:08
DX: R07.89 Other chest pain (principal); Z88.0 Allergy status to penicillin; Z88.1 Allergy status to other antibiotic agents; Z91.041 Radiographic dye allergy status
CPT/HCPCS: 36415; 71045; 80048; 82550; 83690; 83880; 84484; 85025; 93005; 99285

== ENCOUNTER 2024-10-28 14:40 | Emergency (ER) | payer MEDICAID ==
[~2024-10-28] VITALS: Ht 170.2 cm; Wt 68.0 kg
[2024-10-28 16:14] VITALS: BP 112/62; PULSE 88; RESP 16; TEMP 98.1; O2SAT 90
[2024-10-28 16:18] LABS: APPEARANCE,URINE CLEAR (CLEAR); BILIRUBIN,URINE NEGATIVE (NEGATIVE); COLOR,URINE YELLOW (YELLOW); GLUCOSE, URINE (UA) 30 mg/dL (NEGATIVE); KETONES,URINE 20 mg/dL (NEGATIVE); LEUKOCYTE ESTERASE ,URINE NEGATIVE Leu/uL (NEGATIVE); NITRATE,URINE NEGATIVE (NEGATIVE); OCCULT BLOOD,URINE NEGATIVE (NEGATIVE); PH,URINE 6.5 (5.0-8.0); PROTEIN,URINE 10 mg/dL (NEGATIVE); UROBILINOGEN,URINE 3 mg/dL (0.2-1.0)
[2024-10-28 16:21] LABS: ADD UA MICROSCOPIC YES
[2024-10-28 16:22] LABS: MUCUS,URINE RARE LPF (None Seen); RBC,URINE 0-1 /HPF (0-1); WBC,URINE 0-1 /HPF (0-1)
[2024-10-28] MEDS ORDERED: CLOT15CR23 TP (16:42)
--- NOTE | 2024-10-28 16:42 | ERN ---
General Chief Complaint: Painful Urination Stated Complaint: UTI Time Seen by MD: 14:43 Time Seen by Midlevel: 14:43 Source: patient History of Present Illness Initial Comments Patient is a 39-year-old male with a past medical history of cerebral palsy presenting to the emergency department with penile head irritation and dysuria denies any other symptoms Allergies: Coded Allergies: Iodinated Contrast Media (Unverified Allergy, Unknown, 10/09/24) Penicillins (Unverified Allergy, Unknown, 10/09/24) acetaminophen (Unverified Allergy, Unknown, 10/09/24) ceftriaxone (Unverified Allergy, Unknown, 10/09/24) Home Meds Active Scripts Clotrimazole (Clotrimazole) 1 % Cream..g., 1 APPL TP BID for 7 Days, #30 GM 0 Refills apply to affected area(s) Prov:JAGUAR SANCHES 10/28/24 Past Medical History Past Medical History: Other Medical History Other: HX OF CEREBRAL PALSY Past Surgical History: Other Surgical History Other: SX A BABY ROS Dictation CONSTITUTIONAL: Negative except for HPI HEAD/FACE: Negative except for HPI EENT: Negative except for HPI RESPIRATORY: Negative except for HPI GASTROINTESTINAL/ABDOMINAL: Negative except for HPI GENITOURINARY: Negative except for HPI MUSCULOSKELETAL: Negative except for HPI INTEGUMENTARY: Negative except for HPI NEUROLOGICAL/PSYCH: Negative except for HPI HEMATOLOGIC/LYMPHATIC: Negative except for HPI All Systems Negative, Except as noted above. 13 point review of systems assessed and all negative except for above. Physical Exam Physical Exam Dictation Vital Signs reviewed General Appearance: Alert, oriented x 3, no acute distress, well developed, nourished. Head and Face: non-traumatic. Eyes: PERRL, pink conjunctivas, eyelid no trauma, anterior chamber with arcus senilis. Ears: Pinnas intact and no signs of trauma or erythema ear canals clear and no discharge TM no erythema Nose: No discharge, no bleeding. Oropharynx: Mouth normal, tongue pink, pharynx clear,no erythema, tonsils no exudates, no abscesses noted, mucous membrane moist Neck: Supple, non-tender, no thyromegaly, no masses, no JVD, no bruits Breast:Deferred Chest:No tenderness, no crepitus, no paradoxical movement, no retractions Lungs:Clear, well-ventilated, symmetric, no rales, no wheezing, no rhonchi, no stridor, good breath sounds bilaterally Heart: Regular rate, regular rhythm, no murmur, no gallops Vascular: no peripheral edema, Abdomen: Soft, positive bowel sounds, nondistended, no guarding, nontender, no rebound, no masses no hepatomegaly, no splenomegaly, no Lamar's sign, no hernias. Rectal: Deferred Genital: Deferred Neurological: Normal speech, motor function intact, sensory function intact Musculoskeletal: Neck nontender, full range of motion, back nontender, full range of motion, Extremities: nontender, full range of motion Skin: Color pink, dry, no turgor, no rash, no lacerations, no abrasions, no contusions. Lymphatic: Deferred Results Laboratory and Microbiology Lab and Micro Result Laboratory Tests Test 10/28/24 16:10 Urine Color YELLOW (YELLOW) Urine Appearance CLEAR (CLEAR) Urine pH 6.5 (5.0-8.0) Urine Specific [place] 1.028 (1.001-1.031) Urine Protein 10 mg/dL (NEGATIVE) H Urine Glucose (UA) 30 mg/dL (NEGATIVE) H Urine Ketones 20 mg/dL (NEGATIVE) H Urine Occult Blood NEGATIVE (NEGATIVE) Urine Nitrate NEGATIVE (NEGATIVE) Urine Bilirubin NEGATIVE mg/dL (NEGATIVE) Urine Urobilinogen 3 mg/dL (0.2-1.0) H Urine Leukocyte Esterase NEGATIVE Nito/uL Urine RBC 0-1 /HPF (0-1) Urine WBC 0-1 /HPF (0-1) Urine Bacteria None /HPF (None Seen) Labs Reviewed?: Yes MDM MDM: Differential diagnosis: Balanitis, urinary tract infection, pyelonephritis There are no social concerns with this patient. Prescription drug management Prescriptions will include: Clotrimazole Medical management and examination interpretation discussions were had by me with other qualified healthcare professionals as indicated for the patient's care. ED Course Orders Procedure Category Date Status Time Urinalysis Profile LAB 10/28/24 Complete 14:55 Vital Signs Date Time Temp Pulse Resp B/P (MAP) Pulse Ox O2 Delivery O2 Flow Rate FiO2 10/28/24 16:14 98.1 88 16 112/62 90 Room Air* 0 21 10/28/24 14:46 97.9 95 16 113/64 100 Room Air 0 DX & DISP Disposition: Discharge Departure Impression: Primary Impression: Balanitis Condition: Stable Scripts Clotrimazole (Clotrimazole) 1 % Cream..g. 1 APPL TP BID for 7 Days, #30 GM 0 Refills apply to affected area(s) Prov: JAGUAR SANCHES 10/28/24 Referrals: SELF,REFERRAL (PCP) I have reviewed the case, and I agree with, Diagnosis and Plan I performed the substantive portion of the visit. I have reviewed and personally made and approve the management plan that is documented in the note by myself or the JOÃO. I acknowledge for responsibility for the patient's management plan. JAGUAR SANCEHS Oct 28, 2024 16:42
== END 2024-10-28 16:47 | disposition home or self-care (01) ==
LOC: EDH 14:40
DX: N48.1 Balanitis (principal); Z88.0 Allergy status to penicillin; Z88.1 Allergy status to other antibiotic agents; Z91.041 Radiographic dye allergy status
CPT/HCPCS: 81001; 99283

== ENCOUNTER 2024-11-21 11:27 | Emergency (ER) | payer OTHER, MEDICAID ==
[~2024-11-21] VITALS: Ht 170.2 cm; Wt 68.0 kg
[~2024-11-21 11:27] MED LIST: CLOT15CR23 TP
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
[2024-11-21] MEDS: ondanSETRON ODT 4MG TAB SL ONE (12:15)
[2024-11-21 13:05] VITALS: BP 112/76; PULSE 85; RESP 20; TEMP 97.5; O2SAT 98
[2024-11-22] MEDS ORDERED: CYCL15CA23 PO (21:16)
[2024-11-22] MEDS ORDERED: ONDA22I IM (21:16)
== END 2024-11-21 13:05 | disposition home or self-care (01) ==
LOC: EDH 11:27 → EEVIPCON 11:27 → EDH 13:05
DX: S06.0XAA Concussion with loss of consciousness status unknown, initial encounter (principal); R51.9 Headache, unspecified; Z88.0 Allergy status to penicillin; Z88.1 Allergy status to other antibiotic agents; Z91.041 Radiographic dye allergy status; V89.2XXA Person injured in unspecified motor-vehicle accident, traffic, initial encounter; Y93.89 Activity, other specified; Y92.89 Other specified places as the place of occurrence of the external cause; Y99.8 Other external cause status
CPT/HCPCS: 99283

== ENCOUNTER 2024-11-22 18:21 | Emergency (ER) | payer MEDICAID, OTHER ==
[~2024-11-22] VITALS: Ht 170.2 cm; Wt 68.0 kg
[2024-11-22] MEDS: ondanSETRON 4MG INJ IVP ONE (19:30)
[2024-11-22] MEDS: 0.9%NACL 1000ML 1,000 ML IV ONE (19:30)
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
[2024-11-22 21:16] LABS: BASOPHILS # (AUTO) 0.04 K/uL (0.00-0.20); BASOPHILS % (AUTO) 0.7 % (0.0-5.0); EOSINOPHILS # (AUTO) 0.21 K/uL (0.00-0.70); EOSINOPHILS % (AUTO) 3.6 % (0.0-8.0); HEMATOCRIT 43.8 % (42-54); IMMATURE GRANULOCYTE ABSOLUTE 0.03 K/uL (0-1); LYMPHOCYTES % (AUTO) 33.7 % (21.0-51.0); MEAN CORPUSCULAR HEMOGLOBIN 28.1 pg (27.0-33.0); MEAN CORPUSCULAR HGB CONC 32.2 g/dL (32.0-36.0); MEAN CORPUSCULAR VOLUME 87.3 fL (79-99); MONOCYTES # (AUTO) 0.6 K/uL (0.1-1.0); MONOCYTES % (AUTO) 9.5 % (3.0-13.0); NEUTROPHILS # (AUTO) 3.1 K/uL (1.8-7.7); PLATELET COUNT (AUTO) 216 K/uL (130-400); RED BLOOD CELL COUNT(AUTO) 5.02 MIL/uL (4.50-6.20); RED CELL DISTRIBUTION WIDTH 13.5 % (11.0-15.5); WHITE BLOOD COUNT (AUTO) 5.9 K/uL (4.8-10.8)
[2024-11-22] MEDS ORDERED: CYCL15CA23 PO (21:16)
[2024-11-22] MEDS ORDERED: ONDA22I IM (21:16)
[2024-11-22 21:32] LABS: CREATININE 0.9 mg/dL (0.5-1.3); POTASSIUM 4.1 mmol/L (3.5-5.1)
[2024-11-22 22:00] VITALS: BP 107/66; PULSE 98; RESP 16; TEMP 98.1; O2SAT 99
== END 2024-11-22 22:04 | disposition home or self-care (01) ==
LOC: EDH 18:21
DX: R11.2 Nausea with vomiting, unspecified (principal); R19.7 Diarrhea, unspecified; M54.2 Cervicalgia; Z88.0 Allergy status to penicillin; Z88.1 Allergy status to other antibiotic agents; Z91.041 Radiographic dye allergy status; V89.2XXA Person injured in unspecified motor-vehicle accident, traffic, initial encounter; Y93.89 Activity, other specified; Y92.89 Other specified places as the place of occurrence of the external cause; Y99.8 Other external cause status
CPT/HCPCS: 36415; 70450; 72125; 80048; 84145; 85025; 99284

== ENCOUNTER 2024-12-02 00:49 | Emergency (ER) | payer MEDICAID ==
[~2024-12-02] VITALS: Ht 170.2 cm; Wt 68.0 kg
[~2024-12-02 00:49] MED LIST changes: +CYCL15CA23 PO; +ONDA22I IM
--- NOTE | 2024-12-02 00:55 | NUR ---
CALLED [facility] FOR EKG
--- NOTE | 2024-12-02 02:03 | ERN ---
General Chief Complaint: Chest Pain Stated Complaint: GBW, CHEST PAIN Time Seen by MD: 00:51 History of Present Illness Initial Comments Patient is a 39-year-old male paraplegic who has constipation. Two days ago he took some cathartics which caused him to have florid and unremitting diarrhea for two days and today he feels extremely weak and has numbness tingling in his arms and face. He has a slight amount of chest pain. Timing/Duration: 24 hours Allergies: Coded Allergies: Iodinated Contrast Media (Unverified Allergy, Unknown, 10/09/24) Penicillins (Unverified Allergy, Unknown, 10/09/24) acetaminophen (Unverified Allergy, Unknown, 10/09/24) ceftriaxone (Unverified Allergy, Unknown, 10/09/24) Home Meds Active Scripts Ondansetron HCl (Zofran) 4 Mg/2 Ml Inj, 4 MG IM BIDAC PRN for ABDOMINAL PAIN for 5 Days, #10 ML Prov:JENNA PINEDA MD 11/22/24 Cyclobenzaprine HCl (Cyclobenzaprine HCl ER) 15 Mg Cap.er.24h, 1 CAP PO DAILY for 10 Days, #10 CAP 0 Refills Prov:JENNA PINEDA MD 11/22/24 Clotrimazole (Clotrimazole) 1 % Cream..g., 1 APPL TP BID for 7 Days, #30 GM 0 Refills apply to affected area(s) Prov:JAGUAR SANCHES 10/28/24 Past Medical History Past Medical History: Other Medical History Other: CEREBRAL PALSY Past Surgical History: Other Surgical History Other: SX A BABY, LEAKING VALVE Constitutional: (-) chills, (-) diaphoresis, (-) fever, (-) malaise, (-) weakness, (-) other documentation EENTM: (-) eye pain, (-) blurred vision, (-) tearing, (-) double vision, (-) ear pain, (-) ear discharge, (-) nose pain, (-) nose congestion, (-) throat pain, (-) Throat swelling, (-) mouth pain, (-) tooth pain, (-) mouth swelling, (-) other documentation Respiratory: (-) cough, (-) orthopnea, (-) short of breath, (-) stridor, (-) wheezing, (-) other documentation Cardiovascular: (+) chest pain, (+) edema, (+) palpitations, (+) syncope, (+) dyspnea on exertion, (+) other documentation Gastrointestinal/Abdominal: (+) diarrhea; (-) nausea, (-) abdominal pain, (-) abdominal distention, (-) constipation, (-) rectal bleeding, (-) dark stool/melena, (-) other documentation Neuro: (+) headache Physical Exam General Appearance: (+) no apparent distress Orientation: (+) alert Head/Face Trauma: No Eye: bilateral eye normal inspection, bilateral eye PERRL, bilateral eye EOMI Ear, Nose, Throat: (+) hearing grossly normal, (+) normal ENT inspection Neck: (+) normal inspection Respiratory: (+) chest non-tender, (+) lungs clear, (+) well ventilated Heart: (+) regular Vascular: (+) no edema Gastrointestinal: (+) soft, (+) non-tender, (+) bowel sound present Results Laboratory and Microbiology Lab and Micro Result Laboratory Tests Test 12/02/24 02:30 White Blood Count 6.2 K/uL (4.8-10.8) Red Blood Count 5.28 MIL/uL (4.50-6.20) Hemoglobin 15.2 g/dL (14.0-18.0) Hematocrit 44.6 % (42-54) Mean Corpuscular Volume 84.5 fL (79-99) Mean Corpuscular Hemoglobin 28.8 pg (27.0-33.0) Mean Corpuscular Hemoglobin Concent 34.1 g/dL (32.0-36.0) Red Cell Distribution Width 13.2 % (11.0-15.5) Platelet Count 225 K/uL (130-400) Mean Platelet Volume 11.5 fL (7.5-10.5) H Immature Granulocyte % (Auto) 0.5 % (0-1) Neutrophils (%) (Auto) 49.2 % (40.0-77.0) Lymphocytes (%) (Auto) 36.3 % (21.0-51.0) Monocytes (%) (Auto) 10.0 % (3.0-13.0) Eosinophils (%) (Auto) 3.4 % (0.0-8.0) Basophils (%) (Auto) 0.6 % (0.0-5.0) Neutrophils # (Auto) 3.1 K/uL (1.8-7.7) Lymphocytes # (Auto) 2.3 K/uL (1.0-4.8) Monocytes # (Auto) 0.6 K/uL (0.1-1.0) Eosinophils # (Auto) 0.21 K/uL (0.00-0.70) Basophils # (Auto) 0.04 K/uL (0.00-0.20) Absolute Immature Granulocyte (auto 0.03 K/uL (0-1) Nucleated Red Blood Cells 0.0 % (0.0-0.19) Sodium Level 136 mmol/L (136-145) Potassium Level 4.5 mmol/L (3.5-5.1) Chloride Level 98 mmol/L (101-111) L Carbon Dioxide Level 32 mmol/L (21-32) Blood Urea Nitrogen 16 mg/dL (7-18) Creatinine 0.9 mg/dL (0.5-1.3) Glomerular Filtration Rate Calc 113 mL/min (>90) Random Glucose 98 mg/dL (70-105) Total Calcium 8.6 mg/dL (8.5-10.1) MDM Patient is most likely dehydrated and may have a low potassium. I will start with a simple CBC and BMP panel. I will also start giving him fluid. Patient's chest x-ray is negative patient's EKG is negative. To the chest x-ray shows a lot of air in the transverse and descending colon. Patient's CBC these and chemistry panel are also normal except for a mild hypochloremia. Patient says he feels better with the fluid in his headache is gone. He had several questions about what to do if he has diarrhea in the past and what kinds of fluids to drink. I told him to stay away from Gatorade as it has a lot of sugar in it but Pedialyte is fine as his just plain water. I recommend he use GoLYTELY in the future for cathartics. ED Course Orders Procedure Category Date Status Time Vital Signs Per CPOE 12/02/24 Transmitted Routine 00:51 Chest 1vw RAD 12/02/24 Taken 00:51 12 Lead Ekg Tracing- EKG 12/02/24 Logged Technical 00:51 Oxygen By Nc/Pulse Ox CPOE 12/02/24 Transmitted 00:51 Maintain Iv CPOE 12/02/24 Transmitted 00:51 Iv Insertion CPOE 12/02/24 Transmitted 00:51 Cardiac Monitoring CPOE 12/02/24 Transmitted 00:51 Pulse Oximetry With CPOE 12/02/24 Transmitted Vs And Prn 00:51 Cbc With Differential LAB 12/02/24 Complete 00:51 Activity: Br W/Brp CPOE 12/02/24 Transmitted With Assist 00:51 Urinalysis Profile LAB 12/02/24 Logged 00:51 Basic Metabolic Panel LAB 12/02/24 Complete 00:51 0.9%Nacl 1000ml (Ns PHA 12/02/24 Complete 1000ml) 02:30 Current Medications Medications (Trade) Dose Ordered Sig/Carmen Route PRN Reason Start Time Stop Time Status Last Admin Dose Admin Sodium Chloride 1,000 ml @ 0 mls/hr ONCE ONCE IV 12/02/24 02:30 12/02/24 02:31 DC 12/02/24 02:58 Vital Signs Date Time Temp Pulse Resp B/P (MAP) Pulse Ox O2 Delivery O2 Flow Rate FiO2 12/02/24 03:08 82 18 110/68 98 Room Air* 0 21 12/02/24 00:50 97.7 89 20 105/62 99 Room Air DX & DISP Disposition: Discharge Departure Impression: Primary Impression: Dehydration Condition: Stable Additional Instructions: Use GoLYTELY for cathartics. Drink plenty of fluids with a it. Please return if your symptoms get worse. Referrals: SELF,REFERRAL (PCP) JENNA PINEDA MD Dec 02, 2024 02:03
[2024-12-02] MEDS: 0.9%NACL 1000ML 1,000 ML IV ONE (02:58)
[2024-12-02 03:03] LABS: BASOPHILS # (AUTO) 0.04 K/uL (0.00-0.20); BASOPHILS % (AUTO) 0.6 % (0.0-5.0); EOSINOPHILS # (AUTO) 0.21 K/uL (0.00-0.70); EOSINOPHILS % (AUTO) 3.4 % (0.0-8.0); HEMATOCRIT 44.6 % (42-54); IMMATURE GRANULOCYTE ABSOLUTE 0.03 K/uL (0-1); LYMPHOCYTES # (AUTO) 2.3 K/uL (1.0-4.8); LYMPHOCYTES % (AUTO) 36.3 % (21.0-51.0); MEAN CORPUSCULAR HEMOGLOBIN 28.8 pg (27.0-33.0); MEAN CORPUSCULAR HGB CONC 34.1 g/dL (32.0-36.0); MEAN CORPUSCULAR VOLUME 84.5 fL (79-99); MONOCYTES # (AUTO) 0.6 K/uL (0.1-1.0); NEUTROPHILS # (AUTO) 3.1 K/uL (1.8-7.7); NEUTROPHILS % (AUTO) 49.2 % (40.0-77.0); PLATELET COUNT (AUTO) 225 K/uL (130-400); RED BLOOD CELL COUNT(AUTO) 5.28 MIL/uL (4.50-6.20); RED CELL DISTRIBUTION WIDTH 13.2 % (11.0-15.5); WHITE BLOOD COUNT (AUTO) 6.2 K/uL (4.8-10.8)
--- NOTE | 2024-12-02 03:09 | NUR ---
PATIENT GIVEN URINAL AND STATES HE CAN NOT GIVE A SAMPLE AT THIS TIME.
[2024-12-02 03:11] LABS: POTASSIUM 4.5 mmol/L (3.5-5.1)
[2024-12-02 03:12] LABS: CREATININE 0.9 mg/dL (0.5-1.3)
[2024-12-02 04:18] VITALS: BP 102/68; PULSE 88; RESP 18; TEMP 98; O2SAT 98
--- NOTE | 2024-12-02 08:06 | HMCIMG ---
PORTABLE CHEST RADIOGRAPH INDICATION: CHEST PAIN COMPARISON: 10/23/2024 FINDINGS: Heart size is normal. The pulmonary vascularity and sophy appear normal. No abnormal pulmonary parenchymal opacity or consolidation identified. No significant pleural effusion noted. No pneumothorax detected. IMPRESSION: No radiographic evidence for any acute cardiopulmonary process.
--- NOTE | 2024-12-02 11:30 | EKG ---
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
== END 2024-12-02 04:19 | disposition home or self-care (01) ==
LOC: EDH 00:49
DX: E86.0 Dehydration (principal); Z79.899 Other long term (current) drug therapy; Z88.0 Allergy status to penicillin; Z88.1 Allergy status to other antibiotic agents; Z91.041 Radiographic dye allergy status; Z98.890 Other specified postprocedural states
CPT/HCPCS: 99285; 71045; 80048; 85025; 36415; 93005; J7030

== ENCOUNTER 2024-12-04 10:21 | Emergency (ER) | payer MEDICAID ==
[~2024-12-04] VITALS: Ht 170.2 cm; Wt 68.0 kg
--- NOTE | 2024-12-04 10:45 | ERN ---
General Chief Complaint: Numbness Stated Complaint: LEFT SIDE BODY PAIN, TINGLING Time Seen by MD: 10:21 Time Seen by Midlevel: 10:21 Source: patient History of Present Illness Initial Comments Patient is a 39-year-old male with a past medical history of cerebral palsy presenting to the emergency department for worsening left-sided pain. Patient states the pain starts from the top of his head and radiates all the way down to his left leg. He states this pain has been ongoing since August of 2024 but states it has progressively worsened. He was seen in our emergency department several days ago and discharged with a diagnosis of dehydration. Otherwise patient has no other complaints. Allergies: Coded Allergies: Iodinated Contrast Media (Unverified Allergy, Unknown, 10/09/24) Penicillins (Unverified Allergy, Unknown, 10/09/24) acetaminophen (Unverified Allergy, Unknown, 10/09/24) ceftriaxone (Unverified Allergy, Unknown, 10/09/24) Home Meds Active Scripts Ondansetron HCl (Zofran) 4 Mg/2 Ml Inj, 4 MG IM BIDAC PRN for ABDOMINAL PAIN for 5 Days, #10 ML Prov:JENNA PINEDA MD 11/22/24 Cyclobenzaprine HCl (Cyclobenzaprine HCl ER) 15 Mg Cap.er.24h, 1 CAP PO DAILY for 10 Days, #10 CAP 0 Refills Prov:JENNA PINEDA MD 11/22/24 Clotrimazole (Clotrimazole) 1 % Cream..g., 1 APPL TP BID for 7 Days, #30 GM 0 Refills apply to affected area(s) Prov:JAGUAR SANCHES 10/28/24 Past Medical History Past Medical History: Other Medical History Other: CEREBRAL PALSY Past Surgical History: Other Surgical History Other: SX A BABY, LEAKING VALVE ROS Dictation CONSTITUTIONAL: Negative except for HPI HEAD/FACE: Negative except for HPI EENT: Negative except for HPI RESPIRATORY: Negative except for HPI GASTROINTESTINAL/ABDOMINAL: Negative except for HPI GENITOURINARY: Negative except for HPI MUSCULOSKELETAL: Negative except for HPI INTEGUMENTARY: Negative except for HPI NEUROLOGICAL/PSYCH: Negative except for HPI HEMATOLOGIC/LYMPHATIC: Negative except for HPI All Systems Negative, Except as noted above. 13 point review of systems assessed and all negative except for above. Physical Exam Physical Exam Dictation Vital Signs reviewed General Appearance: Alert, oriented x 3, no acute distress, well developed, nourished. Head and Face: non-traumatic. Eyes: PERRL, pink conjunctivas, eyelid no trauma, anterior chamber with arcus senilis. Ears: Pinnas intact and no signs of trauma or erythema ear canals clear and no discharge TM no erythema Nose: No discharge, no bleeding. Oropharynx: Mouth normal, tongue pink, pharynx clear,no erythema, tonsils no exudates, no abscesses noted, mucous membrane moist Neck: Supple, non-tender, no thyromegaly, no masses, no JVD, no bruits Breast:Deferred Chest:No tenderness, no crepitus, no paradoxical movement, no retractions Lungs:Clear, well-ventilated, symmetric, no rales, no wheezing, no rhonchi, no stridor, good breath sounds bilaterally Heart: Regular rate, regular rhythm, no murmur, no gallops Vascular: no peripheral edema, Abdomen: Soft, positive bowel sounds, nondistended, no guarding, nontender, no rebound, no masses no hepatomegaly, no splenomegaly, no Lamar's sign, no hernias. Rectal: Deferred Genital: Deferred Neurological: Normal speech, motor function intact, sensory function intact Musculoskeletal: Neck nontender, full range of motion, back nontender, full range of motion, Extremities: nontender, full range of motion Skin: Color pink, dry, no turgor, no rash, no lacerations, no abrasions, no contusions. Lymphatic: Deferred Results Laboratory and Microbiology Lab and Micro Result Laboratory Tests Test 12/04/24 11:46 12/04/24 11:50 Sodium Level 138 mmol/L (136-145) Potassium Level 3.9 mmol/L (3.5-5.1) Chloride Level 101 mmol/L (101-111) Carbon Dioxide Level 28 mmol/L (21-32) Blood Urea Nitrogen 16 mg/dL (7-18) Creatinine 0.9 mg/dL (0.5-1.3) Glomerular Filtration Rate Calc 113 mL/min (>90) Random Glucose 76 mg/dL (70-105) Total Calcium 9.3 mg/dL (8.5-10.1) White Blood Count 4.6 K/uL (4.8-10.8) L Red Blood Count 5.53 MIL/uL (4.50-6.20) Hemoglobin 15.4 g/dL (14.0-18.0) Hematocrit 46.6 % (42-54) Mean Corpuscular Volume 84.3 fL (79-99) Mean Corpuscular Hemoglobin 27.8 pg (27.0-33.0) Mean Corpuscular Hemoglobin Concent 33.0 g/dL (32.0-36.0) Red Cell Distribution Width 13.2 % (11.0-15.5) Platelet Count 143 K/uL (130-400) # Mean Platelet Volume 12.1 fL (7.5-10.5) H Immature Granulocyte % (Auto) 0.2 % (0-1) Neutrophils (%) (Auto) 59.2 % (40.0-77.0) Lymphocytes (%) (Auto) 30.5 % (21.0-51.0) Monocytes (%) (Auto) 7.8 % (3.0-13.0) Eosinophils (%) (Auto) 1.9 % (0.0-8.0) Basophils (%) (Auto) 0.4 % (0.0-5.0) Neutrophils # (Auto) 2.7 K/uL (1.8-7.7) Lymphocytes # (Auto) 1.4 K/uL (1.0-4.8) Monocytes # (Auto) 0.4 K/uL (0.1-1.0) Eosinophils # (Auto) 0.09 K/uL (0.00-0.70) Basophils # (Auto) 0.02 K/uL (0.00-0.20) Absolute Immature Granulocyte (auto 0.01 K/uL (0-1) Nucleated Red Blood Cells 0.0 % (0.0-0.19) Labs Reviewed?: Yes MDM MDM: Patient is a 39-year-old male with a past medical history of cerebral palsy presenting to the emergency department for worsening left-sided pain. Patient states the pain starts from the top of his head and radiates all the way down to his left leg. He states this pain has been ongoing since August of 2024 but states it has progressively worsened. He was seen in our emergency department several days ago and discharged with a diagnosis of dehydration. Otherwise patient has no other complaints. Physical examination the patient was in no acute distress. He was neurologically intact. GCS of 15 answering questions appropriately. I obtain basic blood work which is unremarkable. A CT scan of the head was obtained to rule out acute intracranial process however CT scan is unremarkable. There is no emergent intervention needed at this time. The patient needs to follow up outpatient with his neurologist. Differential diagnosis: Malingering, intracranial bleed, intracranial mass, dehydration, electrolyte abnormality There are no social concerns with this patient. Prescription drug management Prescriptions will include: None Medical management and examination interpretation discussions were had by me with other qualified healthcare professionals as indicated for the patient's care. ED Course Orders Procedure Category Date Status Time Basic Metabolic Panel LAB 12/04/24 Complete 10:42 Cbc With Differential LAB 12/04/24 Complete 10:42 Ct Head/Brain W/O CT 12/04/24 Resulted Contrast 10:42 Vital Signs Date Time Temp Pulse Resp B/P (MAP) Pulse Ox O2 Delivery O2 Flow Rate FiO2 12/04/24 12:00 97.5 90 15 119/76 100 Room Air* 0 21 12/04/24 10:52 98.2 82 20 114/71 100 Room Air* 0 21 12/04/24 10:35 98.1 90 16 110/71 99 Room Air 0 [place] [id number] [address] IMAGING REPORT Signed PATIENT: SHIVAM FARIAS MR#: [id number] : 1985 SEX: M AGE: 39 LOCATION: [facility] ORDER [id number] STATUS: REG REPORT#: [id number] SERVICE 1042 REASON: left side numbness ORDERING PHYSICIAN: JAGUAR SANCHES PROCEDURE: HEAD WO - CT HEAD/BRAIN W/O CONTRAST Exam Type: CT HEAD/BRAIN W/O CONTRAST Clinical Information: left side numbness Comparison: None CT Dose Index (CTDI): 57.33 mGy Dose Length Product (DLP): 956.79 total mGy-cm Findings: The examination is unremarkable. Feldman-white matter junction is preserved. No intra or extra axial lesions or fluid collections are seen. Specifically, feldman and white matter are normal in signal characteristics with normal caliber of ventricles and periventricular cisterns with no evidence of intra or or extra-axial hemorrhage, lacunar infarct, or major territorial infarct, mass, or other abnormality. There are no infarcts. There are no hemorrhages. Periventricular white matter locations are preserved. The orbital contents and structures of the posterior fossa are intact. Impression: Normal CT of the head. This study was performed using dose reduction techniques to include automated exposure control and/or adjustment of the mA and/or kV according to patient size. DICTATED BY: BRADEN LEAL MD DATE: 12/04/24 1301 ELECTRONICALLY SIGNED BY: BRADEN LEAL MD DATE: 12/04/24 1304 DX & DISP Disposition: Discharge Departure Impression: Primary Impression: Pain of left side of body Condition: Stable Additional Instructions: Your blood work today is unremarkable. There are no signs of anemia, dehydration, or any other acute abnormalities. Your electrolytes are normal. Your CT scan of the head is normal. You will need to see a neurologist outpatient. I have given you a referral to see Dr. Alvarado There is no need for any emergent intervention at this time. Referrals: SELF,REFERRAL (PCP) Time of Disposition: 13:14 I have reviewed the case, and I agree with, Diagnosis and Plan I performed the substantive portion of the visit. I have reviewed and personally made and approve the management plan that is documented in the note by myself or the JOÃO. I acknowledge for responsibility for the patient's management plan. JAGUAR SANCHES Dec 04, 2024 10:45
[2024-12-04 12:11] LABS: BASOPHILS # (AUTO) 0.02 K/uL (0.00-0.20); BASOPHILS % (AUTO) 0.4 % (0.0-5.0); EOSINOPHILS # (AUTO) 0.09 K/uL (0.00-0.70); EOSINOPHILS % (AUTO) 1.9 % (0.0-8.0); HEMATOCRIT 46.6 % (42-54); IMMATURE GRANULOCYTE ABSOLUTE 0.01 K/uL (0-1); LYMPHOCYTES # (AUTO) 1.4 K/uL (1.0-4.8); LYMPHOCYTES % (AUTO) 30.5 % (21.0-51.0); MEAN CORPUSCULAR HEMOGLOBIN 27.8 pg (27.0-33.0); MEAN CORPUSCULAR VOLUME 84.3 fL (79-99); MONOCYTES # (AUTO) 0.4 K/uL (0.1-1.0); MONOCYTES % (AUTO) 7.8 % (3.0-13.0); NEUTROPHILS # (AUTO) 2.7 K/uL (1.8-7.7); NEUTROPHILS % (AUTO) 59.2 % (40.0-77.0); PLATELET COUNT (AUTO) 143 K/uL (130-400); RED BLOOD CELL COUNT(AUTO) 5.53 MIL/uL (4.50-6.20); RED CELL DISTRIBUTION WIDTH 13.2 % (11.0-15.5); WHITE BLOOD COUNT (AUTO) 4.6 K/uL (4.8-10.8)
[2024-12-04 12:21] LABS: CREATININE 0.9 mg/dL (0.5-1.3); POTASSIUM 3.9 mmol/L (3.5-5.1)
--- NOTE | 2024-12-04 13:04 | HMCIMG ---
Exam Type: CT HEAD/BRAIN W/O CONTRAST Clinical Information: left side numbness Comparison: None CT Dose Index (CTDI): 57.33 mGy Dose Length Product (DLP): 956.79 total mGy-cm Findings: The examination is unremarkable. Feldman-white matter junction is preserved. No intra or extra axial lesions or fluid collections are seen. Specifically, feldman and white matter are normal in signal characteristics with normal caliber of ventricles and periventricular cisterns with no evidence of intra or or extra-axial hemorrhage, lacunar infarct, or major territorial infarct, mass, or other abnormality. There are no infarcts. There are no hemorrhages. Periventricular white matter locations are preserved. The orbital contents and structures of the posterior fossa are intact. Impression: Normal CT of the head. This study was performed using dose reduction techniques to include automated exposure control and/or adjustment of the mA and/or kV according to patient size.
[2024-12-04 13:35] VITALS: BP 121/73; PULSE 89; RESP 14; TEMP 97.9; O2SAT 100
== END 2024-12-04 13:40 | disposition home or self-care (01) ==
LOC: EDH 10:21
DX: M79.605 Pain in left leg (principal); Z88.0 Allergy status to penicillin; Z88.1 Allergy status to other antibiotic agents; Z91.041 Radiographic dye allergy status
CPT/HCPCS: 36415; 70450; 80048; 85025; 99284

== ENCOUNTER 2024-12-07 16:55 | Emergency (ER) | payer MEDICAID ==
[~2024-12-07] VITALS: Ht 170.2 cm; Wt 68.0 kg
--- NOTE | 2024-12-07 17:29 | EKG ---
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
[2024-12-07 17:31] LABS: BASOPHILS # (AUTO) 0.04 K/uL (0.00-0.20); BASOPHILS % (AUTO) 0.8 % (0.0-5.0); HEMATOCRIT 43.1 % (42-54); IMMATURE GRANULOCYTE ABSOLUTE 0.01 K/uL (0-1); LYMPHOCYTES # (AUTO) 1.3 K/uL (1.0-4.8); LYMPHOCYTES % (AUTO) 25.1 % (21.0-51.0); MEAN CORPUSCULAR HGB CONC 33.2 g/dL (32.0-36.0); MEAN CORPUSCULAR VOLUME 84.3 fL (79-99); MONOCYTES # (AUTO) 0.4 K/uL (0.1-1.0); MONOCYTES % (AUTO) 8.2 % (3.0-13.0); NEUTROPHILS # (AUTO) 3.2 K/uL (1.8-7.7); NEUTROPHILS % (AUTO) 63.7 % (40.0-77.0); PLATELET COUNT (AUTO) 216 K/uL (130-400); RED BLOOD CELL COUNT(AUTO) 5.11 MIL/uL (4.50-6.20); RED CELL DISTRIBUTION WIDTH 13.2 % (11.0-15.5)
[2024-12-07 17:39] LABS: CREATININE 1.3 mg/dL (0.5-1.3); POTASSIUM 3.4 mmol/L (3.5-5.1)
[2024-12-07 17:43] LABS: INR 1.08 (0.85-1.15); PROTHROMBIN TIME 11.4 SEC (9.6-11.6)
[2024-12-07 17:53] LABS: B-TYPE NATRIURETIC PEPTIDE < 5 pg/mL (0-100)
[2024-12-07] MEDS: LACTATED RINGERS 1000ML 1,000 ML IV ONE (18:18)
--- NOTE | 2024-12-07 18:24 | HMCIMG ---
PORTABLE CHEST RADIOGRAPH INDICATION: tachy COMPARISON: 12/02/2024 FINDINGS: Heart size is normal. The pulmonary vascularity and sophy appear normal. No abnormal pulmonary parenchymal opacity or consolidation identified. No significant pleural effusion noted. No pneumothorax detected. IMPRESSION: No radiographic evidence for any acute cardiopulmonary process.
--- NOTE | 2024-12-07 19:07 | ERN ---
General Chief Complaint: Rapid Heart Rate Stated Complaint: RAPID HEARTBEAT Time Seen by MD: 16:59 Source: patient History of Present Illness Initial Comments Patient is a 39-year-old male coming in to be evaluated for rapid heart rate. Patient states that he felt his heart rate earlier today increased in his decided to come in for further evaluation. Patient has a history of cerebral palsy. Allergies: Coded Allergies: Iodinated Contrast Media (Unverified Allergy, Unknown, 10/09/24) Penicillins (Unverified Allergy, Unknown, 10/09/24) acetaminophen (Unverified Allergy, Unknown, 10/09/24) ceftriaxone (Unverified Allergy, Unknown, 10/09/24) Home Meds Active Scripts Ondansetron HCl (Zofran) 4 Mg/2 Ml Inj, 4 MG IM BIDAC PRN for ABDOMINAL PAIN for 5 Days, #10 ML Prov:JENNA PINEDA MD 11/22/24 Cyclobenzaprine HCl (Cyclobenzaprine HCl ER) 15 Mg Cap.er.24h, 1 CAP PO DAILY for 10 Days, #10 CAP 0 Refills Prov:JENNA PINEDA MD 11/22/24 Clotrimazole (Clotrimazole) 1 % Cream..g., 1 APPL TP BID for 7 Days, #30 GM 0 Refills apply to affected area(s) Prov:JAGUAR SANCHES 10/28/24 Past Medical History Past Medical History: Other Medical History Other: CEREBRAL PALSY Past Surgical History: Other Surgical History Other: SX A BABY, LEAKING VALVE ROS Dictation CONSTITUTIONAL: No chills, no fever, no weakness, no diaphoresis, no malaise. HEAD/FACE: No signs of trauma. EENT: No eye pain, no blurred vision, no tearing, no double vision, no ear pain, no ear discharge, no nose pain, no nasal congestion, no throat pain, no throat swelling, no mouth pain. RESPIRATORY: No cough, no orthopnea, no SOB, no stridor, no wheezing. CARDIOVASCULAR: No chest pain, no edema, no palpitations, no syncope. GASTROINTESTINAL/ABDOMINAL: No abdominal pain, no constipation, no diarrhea, no nausea, no vomiting. GENITOURINARY: No abnormal discharge, no dysuria, no frequent urination, no hematuria. No complaints of pain in the genitals. MUSCULOSKELETAL: No back pain, no gout, no joint pain, no joint swelling, no muscle pain, no muscle stiffness, no neck pain. INTEGUMENTARY: No change in color, no change in hair/nails, no dryness, no lesion, no lumps, no rash. NEUROLOGICAL/PSYCH: No anxiety, not depressed, no emotional problem, no headache, no numbness, no pre-existing deficit, no history of seizures, no tremors, no weakness. HEMATOLOGIC/LYMPHATIC: Not anemic, no history of blood clots, no apparent bleeding, no bruising, glands not swollen. All Systems Negative, Except as Noted. Physical Exam Physical Exam Dictation VITAL SIGNS: Reviewed. GENERAL APPEARANCE: Alert, oriented x3, no acute distress, obese. HEAD AND FACE: Non-traumatic. EYES: PERRL, pink conjunctivas, eyelid no trauma, anterior chamber clear. EARS: Pinnas intact and no signs of trauma or erythema. Ear canals clear and no discharge. TMs no erythema. NOSE: No discharge, no bleeding. OROPHARYNX: Mouth normal, teeth no caries, tongue pink. Pharynx clear, no erythema. Tonsils no exudates, no abscesses noted. Mucous membrane moist. NECK: Supple, non-tender, no thyromegaly, no masses, no JVD, no bruits. BREAST: Deferred. CHEST: No tenderness, no crepitus, no paradoxical movement, no retractions. LUNGS: Clear, well-ventilated, symmetric, no rales, no wheezing, no rhonchi, no stridor, good breath sounds bilaterally. HEART: Regular rate, regular rhythm, no murmur, no gallops. VASCULAR: No peripheral edema. ABDOMEN: Soft, positive bowel sounds, nondistended, no guarding, nontender, no rebound, no masses no hepatomegaly, no splenomegaly, no Lamar's sign, no hernias. RECTAL: Deferred. GENITAL: Deferred. NEUROLOGICAL: Normal speech, gross motor function intact, gross sensory function intact. MUSCULOSKELETAL: Neck nontender, full range of motion, back nontender, full range of motion. EXTREMITIES: Nontender, full range of motion. SKIN: Color pink, dry, no turgor, no rash, no lacerations, no abrasions, no contusions. LYMPHATICS: Deferred. Results Laboratory and Microbiology Lab and Micro Result Laboratory Tests Test 12/07/24 17:20 White Blood Count 5.0 K/uL (4.8-10.8) Red Blood Count 5.11 MIL/uL (4.50-6.20) Hemoglobin 14.3 g/dL (14.0-18.0) Hematocrit 43.1 % (42-54) Mean Corpuscular Volume 84.3 fL (79-99) Mean Corpuscular Hemoglobin 28.0 pg (27.0-33.0) Mean Corpuscular Hemoglobin Concent 33.2 g/dL (32.0-36.0) Red Cell Distribution Width 13.2 % (11.0-15.5) Platelet Count 216 K/uL (130-400) Mean Platelet Volume 11.7 fL (7.5-10.5) H Immature Granulocyte % (Auto) 0.2 % (0-1) Neutrophils (%) (Auto) 63.7 % (40.0-77.0) Lymphocytes (%) (Auto) 25.1 % (21.0-51.0) Monocytes (%) (Auto) 8.2 % (3.0-13.0) Eosinophils (%) (Auto) 2.0 % (0.0-8.0) Basophils (%) (Auto) 0.8 % (0.0-5.0) Neutrophils # (Auto) 3.2 K/uL (1.8-7.7) Lymphocytes # (Auto) 1.3 K/uL (1.0-4.8) Monocytes # (Auto) 0.4 K/uL (0.1-1.0) Eosinophils # (Auto) 0.10 K/uL (0.00-0.70) Basophils # (Auto) 0.04 K/uL (0.00-0.20) Absolute Immature Granulocyte (auto 0.01 K/uL (0-1) Nucleated Red Blood Cells 0.0 % (0.0-0.19) Prothrombin Time 11.4 SEC (9.6-11.6) Prothromb Time International Ratio 1.08 (0.85-1.15) Activated Partial Thromboplast Time 34.0 SEC (26.3-35.5) Sodium Level 139 mmol/L (136-145) Potassium Level 3.4 mmol/L (3.5-5.1) L Chloride Level 102 mmol/L (101-111) Carbon Dioxide Level 32 mmol/L (21-32) Blood Urea Nitrogen 14 mg/dL (7-18) Creatinine 1.3 mg/dL (0.5-1.3) Glomerular Filtration Rate Calc 73 mL/min (>90) Random Glucose 143 mg/dL (70-105) H Total Calcium 8.6 mg/dL (8.5-10.1) Magnesium Level 2.00 mg/dL (1.80-2.40) Total Creatine Kinase 48 U/L (21-232) Troponin I High Sensitivity 4 ng/L (4-75) B-Type Natriuretic Peptide < 5 pg/mL (0-100) Labs Reviewed?: Yes EKG/XRAY/US/CT/MRI EKG Comment 12/07/2024 time 5:26 p.m. Ventricular rate 101 Sinus tachycardia [place] [address] wave elevation or depression MDM MDM: Differential diagnosis: Dehydration, anxious, Rationale: Tests considered and ordered secondary to shared decision making include: Previous outside records reviewed: Old ER visits. Risk of complication and/or morbidity or mortality of patient management: None Patient is a 39-year-old male coming in to be evaluated for tachycardia. Patient does has a history of anxiety patient received IV fluid he will be discharged in stable condition with a diagnosis of dehydration. Throughout ER visit patient was it was stable. ED Course Orders Procedure Category Date Status Time Cbc With Differential LAB 12/07/24 Complete 17:07 Prothrombin Time With LAB 12/07/24 Complete INR 17:07 B-Type Natriuretic LAB 12/07/24 Complete Peptide 17:07 Chest 1vw RAD 12/07/24 Resulted 17:07 12 Lead Ekg Tracing- EKG 12/07/24 Complete Technical 17:07 Lactated Ringers PHA 12/07/24 Complete 1000ml (Lactated 17:30 Magnesium LAB 12/07/24 Complete 17:07 Creatine Kinase, Total LAB 12/07/24 Complete 17:07 Troponin I High LAB 12/07/24 Complete Sensitivity 17:07 Urinalysis Profile LAB 12/07/24 Logged 17:07 Partial LAB 12/07/24 Complete Thromboplastin Time 17:07 Basic Metabolic Panel LAB 12/07/24 Complete 17:07 Current Medications Medications (Trade) Dose Ordered Sig/Carmen Route PRN Reason Start Time Stop Time Status Last Admin Dose Admin Lactated Ringer's 1,000 ml @ 0 mls/hr ONCE ONCE IV 12/07/24 17:30 12/07/24 17:31 DC 12/07/24 18:18 Vital Signs Date Time Temp Pulse Resp B/P (MAP) Pulse Ox O2 Delivery O2 Flow Rate FiO2 12/07/24 18:34 103 20 123/68 100 Room Air* 0 21 12/07/24 16:58 98.8 107 18 129/63 98 Room Air DX & DISP Disposition: Discharge Departure Impression: Primary Impression: Dehydration Condition: Stable Additional Instructions: FOLLOW-UP WITH PRIMARY CARE PROVIDER IN 1 TO 2 DAYS. TAKE MEDICATIONS DIRECTED HERE IN THE EMERGENCY ROOM. OKAY TO CONTINUE HOME MEDICATIONS UNLESS OTHERWISE DISCUSSED DURING YOUR VISIT IN THE EMERGENCY ROOM TODAY. RETURN TO YOUR NEAREST EMERGENCY ROOM IF SYMPTOMS WORSEN OR IF THERE IS NO IMPROVEMENT. CALL 911 IF YOU NEED IMMEDIATE ASSISTANCE. TAKE TYLENOL [id number] NEEDED AND IF NO CONTRAINDICATIONS ARE PRESENT. INCREASE ORAL HYDRATION. A WOUND CULTURE OR URINE CULTURE WAS ORDERED HERE IN THE EMERGENCY ROOM DEPARTMENT PLEASE FOLLOW-UP WITH PRIMARY CARE PROVIDER AND ADVISE THEM TO GET REPEAT PORTS FROM OUR FACILITY. IF YOU HAD ANY EHSAN WRAP/SPLINTS THAT WERE APPLIED HERE, PLEASE DO NOT REMOVE THEM UNTIL YOU SEE YOUR PRIMARY CARE OR SPECIALTY. Referrals: Referrals: KSENIA NIELSEN (PCP) Time of Disposition: 19:14 BAYRON AGOSTO MD Dec 07, 2024 19:07
[2024-12-07 19:36] VITALS: BP 112/60; PULSE 100; RESP 16; TEMP 98.2; O2SAT 98
== END 2024-12-07 19:38 | disposition home or self-care (01) ==
LOC: EDH 16:55
DX: E86.0 Dehydration (principal); Z79.01 Long term (current) use of anticoagulants; Z88.0 Allergy status to penicillin; Z88.1 Allergy status to other antibiotic agents; Z91.041 Radiographic dye allergy status; G80.8 Other cerebral palsy; Z98.890 Other specified postprocedural states
CPT/HCPCS: 99285; 71045; 82550; 83735; 84484; 80048; 83880; 85025; 85610; 85730; 36415; 93005; J7120

== ENCOUNTER 2024-12-21 19:24 | Emergency (ER) | payer MEDICAID ==
[~2024-12-21] VITALS: Ht 170.2 cm; Wt 68.0 kg
[2024-12-21 19:32] VITALS: BP 123/61; PULSE 89; RESP 16; TEMP 97.3; O2SAT 99
--- NOTE | 2024-12-21 19:55 | ERN ---
ED Note History of Present Illness Stated Complaint: SINUS PRESSURE Chief Complaint: Headache Time Seen by MD: 19:28 Time Seen by Midlevel: 19:28 Dictation: Patient is a 39-year-old male with a history of cerebral palsy presents to the emergency department with complaints of nasal congestion and sinus pressure onset yesterday. Patient denies any fevers, sore throat, ear pain, head trauma, nausea or vomiting. Allergies: Coded Allergies: Iodinated Contrast Media (Unverified Allergy, Unknown, 10/09/24) Penicillins (Unverified Allergy, Unknown, 10/09/24) acetaminophen (Unverified Allergy, Unknown, 10/09/24) ceftriaxone (Unverified Allergy, Unknown, 10/09/24) Home Meds Active Scripts Ondansetron HCl (Zofran) 4 Mg/2 Ml Inj, 4 MG IM BIDAC PRN for ABDOMINAL PAIN for 5 Days, #10 ML Prov:JENNA PINEDA MD 11/22/24 Cyclobenzaprine HCl (Cyclobenzaprine HCl ER) 15 Mg Cap.er.24h, 1 CAP PO DAILY for 10 Days, #10 CAP 0 Refills Prov:JENNA PINEDA MD 11/22/24 Clotrimazole (Clotrimazole) 1 % Cream..g., 1 APPL TP BID for 7 Days, #30 GM 0 Refills apply to affected area(s) Prov:JAGUAR SANCHES 10/28/24 Past Medical History Past Medical History: Other Additional Past Medical Hx: CEREBRAL PALSY Surgical History: Other Surgical History Other: SX A BABY, LEAKING VALVE RN Note Reviewed/Agreed w/PFSH: Yes Review of System Dictation Constitutional: Negative for fever,chills, and weight loss Eyes: Negative for injury, pain,redness, and discharge ENT: Negative for injury,pain or swelling positive for nasal congestion, sinus pressure Cardiovascular: Negative for chest pain, palpitations, and edema Respiratory: Negative for shortness of breath, cough, and wheezing, Abdomen/GI: Negative for abdominal pain, nausea, vomiting, diarrhea, and constipation Back: Negative for injury and pain : Negative for injury, bleeding and discharge MS/Extremity: Negative for injury and deformity Skin: Negative for rash, and discoloration Neuro: Negative for headache, weakness, numbness, tingling, and seizure Psych: Negative for suicide ideation, homicidal ideation, and hallucinations Initial Vital Sign VS Vital Signs Date Time Temp Pulse Resp B/P (MAP) Pulse Ox O2 Delivery O2 Flow Rate FiO2 12/21/24 19:26 97.3 89 16 123/61 99 Room Air 12/21/24 19:32 0 21 Physical Exam Dictation Vital Signs reviewed General Appearance: Alert, oriented x 3, no acute distress, well developed, nourished. Head and Face: non-traumatic. Eyes: PERRL, pink conjunctivas, eyelid no trauma, anterior chamber with arcus senilis. Ears: Pinnas intact and no signs of trauma or erythema ear canals clear and no discharge TM no erythema Nose: No discharge, no bleeding. Oropharynx: Mouth normal, tongue pink. pharynx clear,no erythema, tonsils no exudates, no abscesses noted, mucous membrane moist Neck: Supple, non-tender, no thyromegaly, no masses, no JVD, no bruits Breast:Deferred Chest:No tenderness, no crepitus, no paradoxical movement, no retractions Lungs:Clear, well-ventilated, symmetric, no rales, no wheezing, no rhonchi, no stridor, good breath sounds bilaterally Heart: Regular rate, regular rhythm, no murmur, no gallops Vascular: no peripheral edema, Abdomen: Soft, positive bowel sounds, nondistended, no guarding, nontender, no rebound, no masses no hepatomegaly, no splenomegaly, no Lamar's sign, no hernias. Rectal: Deferred Genital: Deferred Neurological: Normal speech, motor function intact, sensory function intact, upper extremities equal in strength. Musculoskeletal: Neck nontender, full range of motion, back nontender, full range of motion, Extremities: nontender, bilateral lower extremity(baseline) Skin: Color pink, dry, no turgor, no rash, no lacerations, no abrasions, no contusions. Lymphatic: Deferred Results (Laboratory/Radiology) Laboratory/Radiology Laboratory Tests Test 12/21/24 19:56 Influenza Type A Antigen Negative For Type A Influenza Type B Antigen Negative For Type B SARS-CoV-2 Antigen (Rapid) PRESUMPTIVE NEGATIVE Labs Reviewed?: Yes ED Course ED Course Orders Procedure Category Date Status Time Covid19 (Sars Antigen LAB 12/21/24 Complete Rapid) 19:40 Influenza Type A & B, LAB 12/21/24 Complete Rapid 19:40 Vital Signs Date Time Temp Pulse Resp B/P (MAP) Pulse Ox O2 Delivery O2 Flow Rate FiO2 12/21/24 19:32 97.3 89 16 123/61 99 Room Air* 0 21 12/21/24 19:26 97.3 89 16 123/61 99 Room Air Medical Decision Making MDM Patient is a 39-year-old male with a history of cerebral palsy presents to the emergency department with complaints of nasal congestion and sinus pressure onset yesterday. Patient denies any fevers, sore throat, ear pain, head trauma, nausea or vomiting. Serology negative. Symptoms consistent sinusitis. We will be discharged with instructions on symptomatic treatment including saline irrigation. Patient in no acute distress, neurologically at baseline. Stable vital signs. Patient refused pain medication in ER. Agrees to be discharged Differential diagnosis: Sinusitis, upper respiratory infection, tension headache Need for hospitalization: Patient does not meet criteria for hospitalization. There are no social concerns with this patient. DX & DISP Disposition: Discharge Departure Impression: Primary Impression: Sinusitis Additional Impression: Nasal congestion Condition: Stable Scripts Fluticasone Propionate (Flonase Nasal [place]) 50 Mcg/Actuation [place] 2 SPRAY NS DAILY for 7 Days, #16 GM 0 Refills Prov: JUAN RAMÍREZ 12/21/24 Additional Instructions: Please perform nasal irrigation with normal saline at home to help with symptoms. If symptoms dont improved in 10 days please visit your pcp. FOLLOW-UP WITH PRIMARY CARE PROVIDER IN 1 TO 2 DAYS. TAKE MEDICATIONS DIRECTED HERE IN THE EMERGENCY ROOM. OKAY TO CONTINUE HOME MEDICATIONS UNLESS OTHERWISE DISCUSSED DURING YOUR VISIT IN THE EMERGENCY ROOM TODAY. RETURN TO YOUR NEAREST EMERGENCY ROOM IF SYMPTOMS WORSEN OR IF THERE IS NO IMPROVEMENT. CALL 911 IF YOU NEED IMMEDIATE ASSISTANCE. TAKE OR MOTRIN [id number] NEEDED AND IF NO CONTRAINDICATIONS ARE PRESENT. INCREASE ORAL HYDRATION. A WOUND CULTURE OR URINE CULTURE WAS ORDERED HERE IN THE EMERGENCY ROOM DEPARTMENT PLEASE FOLLOW-UP WITH PRIMARY CARE PROVIDER AND ADVISE THEM TO GET REPEAT PORTS FROM OUR FACILITY. IF YOU HAD ANY EHSAN WRAP/SPLINTS THAT WERE APPLIED HERE, PLEASE DO NOT REMOVE THEM UNTIL YOU SEE YOUR PRIMARY CARE OR SPECIALTY. Referrals: KSENIA NIELSEN (PCP) Time of Disposition: 20:47 I have reviewed the case, and I agree with, Diagnosis and Plan JUAN RAMÍREZ December 21, 2024 19:55
[2024-12-21 20:37] LABS: COVID19 (SARS ANTIGEN RAPID) PRESUMPTIVE NEGATIVE (NEGATIVE); INFLUENZA TYPE A Negative For Type A (NEGATIVE); INFLUENZA TYPE B Negative For Type B (NEGATIVE)
[2024-12-21] MEDS ORDERED: FLUT16H NS (20:51)
== END 2024-12-21 21:00 | disposition home or self-care (01) ==
LOC: EDH 19:24
DX: J32.9 Chronic sinusitis, unspecified (principal); G80.9 Cerebral palsy, unspecified; Z20.822 Contact with and (suspected) exposure to COVID-19; Z79.899 Other long term (current) drug therapy; Z88.0 Allergy status to penicillin; Z88.1 Allergy status to other antibiotic agents; Z91.041 Radiographic dye allergy status; Z98.890 Other specified postprocedural states
CPT/HCPCS: 87426; 87804; 99283

== ENCOUNTER 2025-01-01 23:53 | Emergency (ER) | payer MEDICAID ==
[~2025-01-01] VITALS: Ht 170.2 cm; Wt 68.0 kg
[~2025-01-01 23:53] MED LIST changes: +FLUT16H NS
--- NOTE | 2025-01-02 00:47 | ERN ---
ED Note History of Present Illness Stated Complaint: C/O LEFT EAR PAIN Chief Complaint: Earache Time Seen by : 00:12 Dictation: This is a 39-year-old male who presented to the emergency room with complaints of left-sided earache. Apparently the pain started and he reports that he radius to the head and neck area. No drainage from the ear no bleeding from the ear. No history of any injury. He was recently seen on 12/21/2024 for nasal congestion and sinus pressure. No fevers chills or rigors Temperature 97.6� pulse 99 respirations 20 blood pressure 103/67 with a pulse oximetry of 95% on room air History of cerebral palsy and a leaky valve as a child Allergies: Coded Allergies: Iodinated Contrast Media (Unverified Allergy, Unknown, 10/09/24) Penicillins (Unverified Allergy, Unknown, 10/09/24) acetaminophen (Unverified Allergy, Unknown, 10/09/24) ceftriaxone (Unverified Allergy, Unknown, 10/09/24) Home Meds Active Scripts Azithromycin (Azithromycin) 500 Mg Tablet, 1 TAB PO DAILY for 7 Days, #7 TAB 0 Refills Prov:ANDRY MUHAMMAD MD 01/02/25 Fluticasone Propionate (Flonase Nasal [place]) 50 Mcg/Actuation [place], 2 SPRAY NS DAILY for 7 Days, #16 GM 0 Refills Prov:JUAN RAMÍREZ 12/21/24 Ondansetron HCl (Zofran) 4 Mg/2 Ml Inj, 4 MG IM BIDAC PRN for ABDOMINAL PAIN for 5 Days, #10 ML Prov:JENNA PINEDA MD 11/22/24 Cyclobenzaprine HCl (Cyclobenzaprine HCl ER) 15 Mg Cap.er.24h, 1 CAP PO DAILY for 10 Days, #10 CAP 0 Refills Prov:JENNA PINEDA MD 11/22/24 Clotrimazole (Clotrimazole) 1 % Cream..g., 1 APPL TP BID for 7 Days, #30 GM 0 Refills apply to affected area(s) Prov:JAGUAR SANCHES 10/28/24 Past Medical History Past Medical History: Other Additional Past Medical Hx: CEREBRAL PALSY Surgical History: None Surgical History Other: SX A BABY, LEAKING VALVE Family History: Negative Social History: Negative RN Note Reviewed/Agreed w/PFSH: Yes Review of System Dictation Constitutional: Negative for fever,chills, and weight loss Eyes: Negative for injury, pain,redness, and discharge ENT: Negative for injury,pain or swelling positive for left earache Cardiovascular: Negative for chest pain, palpitations, and edema Respiratory: Negative for shortness of breath, cough, and wheezing, Abdomen/GI: Negative for abdominal pain, nausea, vomiting, diarrhea, and constipation Back: Negative for injury and pain : Negative for injury, bleeding and discharge MS/Extremity: Negative for injury and deformity Skin: Negative for rash, and discoloration Neuro: Negative for headache, weakness, numbness, tingling, and seizure Psych: Negative for suicide ideation, homicidal ideation, and hallucinations Initial Vital Sign VS Vital Signs Date Time Temp Pulse Resp B/P (MAP) Pulse Ox O2 Delivery O2 Flow Rate FiO2 01/01/25 23:55 97.5 99 20 103/67 95 Room Air Physical Exam Dictation General: awake, alert, NAD wheelchair-bound, conversation Head/Face: Normocephalic, atraumatic Eyes: PERRL, EOMI, vision at baseline ENT: oral cavity clear, TMs clear, no signs of infection both ears have some cerumen. Left ear appeared to have a perforation of the tympanic membrane around 10 o'clock position. Also small amount of blood in the external auditory canal Neck: Trachea midline, supple, no nuchal rigidity Cardiovascular: RRR, normal S1/S2, No MRGs, no JVD Respiratory: CTAB, no respiratory distress, No rales or wheezes Abdomen: Soft, non-tender, non-distended, normal bowel sounds, no guarding or rebound. Skin: Warm, dry, normal turgor, no rash MS/Extremity: Pulses equal, no cyanosis, neurovascular intact, FROM Neuro: COAx4, GCS 15, strength 5/5, CN 2-12 intact, normal cerebellar exam, normal gait, Psych: Normal behavior, mood, and affect normal Extremities-trace edema without any palpable cords, Homans sign is negative ED Course ED Course Orders Procedure Category Date Status Time Azithromycin PHA 01/02/25 Complete (Zithromax) 01:00 Current Medications Medications (Trade) Dose Ordered Sig/Carmen Route PRN Reason Start Time Stop Time Status Last Admin Dose Admin Azithromycin (Zithromax) 500 mg ONCE ONCE PO 01/02/25 01:00 01/02/25 01:03 DC 01/02/25 01:06 Vital Signs Date Time Temp Pulse Resp B/P (MAP) Pulse Ox O2 Delivery O2 Flow Rate FiO2 01/01/25 23:55 97.5 99 20 103/67 95 Room Air I had a long discussion with the patient and his family member and explained the findings of my otoscopy. As he is penicillin allergic, we will give a dose of azithromycin and discharge him on azithromycin. I recommended not blowing the nose very violently. Patient needs to see ENT in follow-up Medical Decision Making MDM MDM: Differential diagnosis: Impacted cerumen, otitis externa, otitis media, mastoiditis, TMJ joint pain Rationale: Tests considered and ordered secondary to shared decision making include: Previous outside records reviewed: Old ER visits. Risk of complication and/or morbidity or mortality of patient management: None Medications-Per medication reconciliation Need for hospitalization: Patient does not meet criteria for hospitalization. Need for emergency major/minor surgery: No There are no social concerns with this patient. Prescription drug management Prescriptions will include symptomatic care Patient's prior external medical records from other ER visits were reviewed by me as indicated. Prior testing and results from previous visits were reviewed. Prior tests were taken into account with medical decision making and resource utilization, independent historian/historians were used to obtain complete medical history. I independently interpreted the test that were performed, results were reviewed by me and considered findings on radiology if ordered. Medical management and examination interpretation discussions were had by me with other qualified healthcare professionals as indicated for the patient's care. DX & DISP Disposition: Discharge Departure Impression: Primary Impression: Otitis media of left ear Additional Impression: Perforation of tympanic membrane of left ear due to otitis media Condition: Stable Scripts Prednisone (Prednisone) 20 Mg Tablet 1 TAB PO AD for 6 Days, #14 TAB 0 Refills TAKE 1 TAB BY MOUTH THREE TIMES PER DAY X3 DAYS, THEN TAKE 1 TAB BY MOUTH TWICE A DAY X2 DAYS, THEN TAKE 1 TAB BY MOUTH ONCE A DAY X1 DAY. Prov: ANDRY MUHAMMAD MD 01/02/25 Azithromycin (Azithromycin) 500 Mg Tablet 1 TAB PO DAILY for 7 Days, #7 TAB 0 Refills Prov: ANDRY MUHAMMAD MD 01/02/25 Additional Instructions: Patient and the caregiver have been informed of all the diagnostic tests and the imaging conducted during the today's visit to the emergency room and has verbalized understanding of the results I have personally reviewed and interpreted all diagnostic exams performed here in the ER today as well as the vital signs documented by the nursing staff. The patient is now being discharged to home and should follow up with the primary care physician or the specialist as directed by the ER staff. Follow-up with primary care provider in 1 to 2 days. Take medications as directed here in the emergency room. Okay to continue home medications unless otherwise discussed during your visit in the emergency room today. Return to your nearest emergency room if symptoms worsen or if there is no improvement. Call 911 if you need immediate assistance. Take Tylenol or Motrin [id number] as needed and if no contraindications are present. Increase oral hydration. A wound culture or urine culture was ordered here in the emergency room department please follow-up with primary care provider and advise them to get repeat ports from our facility. If you had any Pierre wrap/splints that were applied here, please do not remove them until you see your primary care or specialty. Gave a referral to ENT physician who has not in the hospital system however in the community for patient to contact his primary care 1st. Referrals: KSENIA NIELSEN (PCP) ANDRY MUHAMMAD MD January 02, 2025 00:47
[2025-01-02] MEDS ORDERED: AZIT500T4 PO (01:04)
[2025-01-02] MEDS: AZITHROMYCIN 250 MG TABLET PO ONE (01:06)
[2025-01-02] MEDS ORDERED: PRED20TA3 PO (01:20)
[2025-01-02 01:30] VITALS: BP 105/67; PULSE 78; RESP 18; TEMP 97.5; O2SAT 98
[2025-01-02] MEDS ORDERED: KETO10TA2 PO (10:58)
== END 2025-01-02 01:35 | disposition home or self-care (01) ==
LOC: EDH 23:53
DX: H66.92 Otitis media, unspecified, left ear (principal); H72.92 Unspecified perforation of tympanic membrane, left ear; Z88.0 Allergy status to penicillin; Z88.1 Allergy status to other antibiotic agents; Z91.041 Radiographic dye allergy status
CPT/HCPCS: 99283

== ENCOUNTER 2025-01-02 10:12 | Emergency (ER) | payer MEDICAID ==
[~2025-01-02] VITALS: Ht 170.2 cm; Wt 68.0 kg
[~2025-01-02 10:12] MED LIST changes: +AZIT500T4 PO; +PRED20TA3 PO
[2025-01-02] MEDS ORDERED: KETO10TA2 PO (10:58)
--- NOTE | 2025-01-02 10:59 | ERN ---
General Chief Complaint: Headache Stated Complaint: RUPTURED EAR MEMBRANE Time Seen by MD: 10:22 Time Seen by Midlevel: 10:22 Source: patient History of Present Illness Initial Comments The patient is a 39-year-old male with a past medical history of cerebral palsy presenting to the emergency department with left earache and a left-sided headache. The patient was seen in our emergency department yesterday where he was diagnosed with an otitis media of the left ear along with a ruptured tympanic membrane. The patient was started on antibiotics and sent home with supportive management. However, the patient states his symptoms started after he blew his nose. He states that if he was able to ruptured tympanic membrane he is afraid that he may have ruptured something inside his brain. Patient has no other complaints. Allergies: Coded Allergies: Iodinated Contrast Media (Unverified Allergy, Unknown, 10/09/24) Penicillins (Unverified Allergy, Unknown, 10/09/24) acetaminophen (Unverified Allergy, Unknown, 10/09/24) ceftriaxone (Unverified Allergy, Unknown, 10/09/24) Home Meds Active Scripts Prednisone (Prednisone) 20 Mg Tablet, 1 TAB PO AD for 6 Days, #14 TAB 0 Refills TAKE 1 TAB BY MOUTH THREE TIMES PER DAY X3 DAYS, THEN TAKE 1 TAB BY MOUTH TWICE A DAY X2 DAYS, THEN TAKE 1 TAB BY MOUTH ONCE A DAY X1 DAY. Prov:ANDRY MUHAMMAD MD 01/02/25 Azithromycin (Azithromycin) 500 Mg Tablet, 1 TAB PO DAILY for 7 Days, #7 TAB 0 Refills Prov:ANDRY MUHAMMAD MD 01/02/25 Fluticasone Propionate (Flonase Nasal [place]) 50 Mcg/Actuation [place], 2 SPRAY NS DAILY for 7 Days, #16 GM 0 Refills Prov:JUAN RAMÍREZ 12/21/24 Ondansetron HCl (Zofran) 4 Mg/2 Ml Inj, 4 MG IM BIDAC PRN for ABDOMINAL PAIN for 5 Days, #10 ML Prov:JENNA PINEDA MD 11/22/24 Cyclobenzaprine HCl (Cyclobenzaprine HCl ER) 15 Mg Cap.er.24h, 1 CAP PO DAILY for 10 Days, #10 CAP 0 Refills Prov:JENNA PINEDA MD 11/22/24 Clotrimazole (Clotrimazole) 1 % Cream..g., 1 APPL TP BID for 7 Days, #30 GM 0 Refills apply to affected area(s) Prov:JAGUAR SANCHES 10/28/24 Past Medical History Past Medical History: Other Medical History Other: CEREBRAL PALSY Past Surgical History: None Surgical History Other: SX A BABY, LEAKING VALVE Family History Family History: Negative Social History Social History: Negative ROS Dictation CONSTITUTIONAL: Negative except for HPI HEAD/FACE: Negative except for HPI EENT: Negative except for HPI RESPIRATORY: Negative except for HPI GASTROINTESTINAL/ABDOMINAL: Negative except for HPI GENITOURINARY: Negative except for HPI MUSCULOSKELETAL: Negative except for HPI INTEGUMENTARY: Negative except for HPI NEUROLOGICAL/PSYCH: Negative except for HPI HEMATOLOGIC/LYMPHATIC: Negative except for HPI All Systems Negative, Except as noted above. 13 point review of systems assessed and all negative except for above. Physical Exam Physical Exam Dictation Vital Signs reviewed General Appearance: Alert, oriented x 3, no acute distress, well developed, nourished. Head and Face: non-traumatic. Eyes: PERRL, pink conjunctivas, eyelid no trauma, anterior chamber with arcus senilis. Ears: Pinnas intact and no signs of trauma or erythema ear canals clear and no discharge TM no erythema Nose: No discharge, no bleeding. Oropharynx: Mouth normal, tongue pink, pharynx clear,no erythema, tonsils no exudates, no abscesses noted, mucous membrane moist Neck: Supple, non-tender, no thyromegaly, no masses, no JVD, no bruits Breast:Deferred Chest:No tenderness, no crepitus, no paradoxical movement, no retractions Lungs:Clear, well-ventilated, symmetric, no rales, no wheezing, no rhonchi, no stridor, good breath sounds bilaterally Heart: Regular rate, regular rhythm, no murmur, no gallops Vascular: no peripheral edema, Abdomen: Soft, positive bowel sounds, nondistended, no guarding, nontender, no rebound, no masses no hepatomegaly, no splenomegaly, no Lamar's sign, no hernias. Rectal: Deferred Genital: Deferred Neurological: Normal speech, motor function intact, sensory function intact Musculoskeletal: Neck nontender, full range of motion, back nontender, full range of motion, Extremities: nontender, full range of motion Skin: Color pink, dry, no turgor, no rash, no lacerations, no abrasions, no contusions. Lymphatic: Deferred MDM MDM: The patient is a 39-year-old male with a past medical history of cerebral palsy presenting to the emergency department with left earache and a left-sided headache. The patient was seen in our emergency department yesterday where he was diagnosed with an otitis media of the left ear along with a ruptured tympanic membrane. The patient was started on antibiotics and sent home with supportive management. However, the patient states his symptoms started after he blew his nose. He states that if he was able to ruptured tympanic membrane he is afraid that he may have ruptured something inside his brain. Patient has no other complaints. On physical examination there is a bulging tympanic membrane to the left ear. I do not see evidence of a ruptured tympanic membrane. Neurologically he is intact. He is answering questions appropriately. He has no focal neurological deficits. He is able to move bilateral upper and lower extremities. No focal neurological deficits are noted. We will administer pain medication in the emergency department and discharged home. The patient needs to follow up with ENT or his primary care doctor. Differential diagnosis: Otitis media, otitis externa, ruptured tympanic membrane, headache There are no social concerns with this patient. Prescription drug management Prescriptions will include: Toradol Medical management and examination interpretation discussions were had by me with other qualified healthcare professionals as indicated for the patient's care. ED Course Orders Procedure Category Date Status Time Ibuprofen 800 Mg Tab PHA 01/02/25 In Process (Motrin) 11:00 Vital Signs Date Time Temp Pulse Resp B/P (MAP) Pulse Ox O2 Delivery O2 Flow Rate FiO2 01/02/25 10:14 98.1 104 18 121/65 99 Room Air 0 DX & DISP Disposition: Discharge Departure Impression: Primary Impression: Otitis media of left ear Condition: Stable Scripts Ketorolac Tromethamine (Ketorolac Tromethamine) 10 Mg Tablet 1 TAB PO TID for pain for 5 Days, #15 TAB 0 Refills Prov: JAGUAR SANCHES 01/02/25 Additional Instructions: I have prescribed you pain medication. You need to follow up with either your primary care doctor or ENT specialist. Continue with the antibiotics you were prescribed. Referrals: KSENIA NIELSEN-OUSMANE (PCP) Time of Disposition: 10:58 I have reviewed the case, and I agree with, Diagnosis and Plan I performed the substantive portion of the visit. I have reviewed and personally made and approve the management plan that is documented in the note by myself or the JOÃO. I acknowledge for responsibility for the patient's management plan. JAGUAR SANCHES January 02, 2025 10:59
[2025-01-02] MEDS: ibuPROFEN 800 MG TAB PO ONE (11:05)
[2025-01-02 11:19] VITALS: BP 118/65; PULSE 100; RESP 18; TEMP 98.1; O2SAT 99
== END 2025-01-02 11:26 | disposition home or self-care (01) ==
LOC: EDH 10:12
DX: H66.92 Otitis media, unspecified, left ear (principal); Z88.0 Allergy status to penicillin; Z88.1 Allergy status to other antibiotic agents; Z91.041 Radiographic dye allergy status
CPT/HCPCS: 99283

== ENCOUNTER 2025-01-20 13:57 | Emergency (ER) | payer MEDICAID ==
[~2025-01-20] VITALS: Ht 170.2 cm; Wt 68.0 kg
[~2025-01-20 13:57] MED LIST changes: +KETO10TA2 PO
[2025-01-20 14:36] LABS: APPEARANCE,URINE CLEAR (CLEAR); BILIRUBIN,URINE NEGATIVE (NEGATIVE); COLOR,URINE YELLOW (YELLOW); GLUCOSE, URINE (UA) 200 mg/dL (NEGATIVE); KETONES,URINE NEGATIVE (NEGATIVE); LEUKOCYTE ESTERASE ,URINE NEGATIVE Leu/uL (NEGATIVE); MUCUS,URINE RARE LPF (None Seen); NITRATE,URINE NEGATIVE (NEGATIVE); OCCULT BLOOD,URINE NEGATIVE (NEGATIVE); PH,URINE 6.5 (5.0-8.0); PROTEIN,URINE NEGATIVE (NEGATIVE); RBC,URINE 0-1 /HPF (0-1); WBC,URINE 0-1 /HPF (0-1)
[2025-01-20 14:39] VITALS: BP 97/62; PULSE 88; RESP 16; TEMP 98.1; O2SAT 98
--- NOTE | 2025-01-20 14:51 | ERN ---
General Chief Complaint: Painful Urination Stated Complaint: PAINFUL URINATION Time Seen by MD: 13:57 Source: patient History of Present Illness Initial Comments PATIENT IS A 39-YEAR-OLD MALE COMING IN TO BE EVALUATED FOR DYSURIA. PATIENT STATES HE HAS BEEN USING SOME WHITE BE THAT MIGHT BE IRRITATING HIM. HE DOES HAS A HISTORY OF PREVIOUS URINARY TRACT INFECTIONS SO HE IS HERE FOR FURTHER EVALUATION. Allergies: Coded Allergies: Iodinated Contrast Media (Unverified Allergy, Unknown, 10/09/24) Penicillins (Unverified Allergy, Unknown, 10/09/24) acetaminophen (Unverified Allergy, Unknown, 10/09/24) ceftriaxone (Unverified Allergy, Unknown, 10/09/24) Home Meds Active Scripts Ketorolac Tromethamine (Ketorolac Tromethamine) 10 Mg Tablet, 1 TAB PO TID for pain for 5 Days, #15 TAB 0 Refills Prov:JAGUAR SANCHES 01/02/25 Prednisone (Prednisone) 20 Mg Tablet, 1 TAB PO AD for 6 Days, #14 TAB 0 Refills TAKE 1 TAB BY MOUTH THREE TIMES PER DAY X3 DAYS, THEN TAKE 1 TAB BY MOUTH TWICE A DAY X2 DAYS, THEN TAKE 1 TAB BY MOUTH ONCE A DAY X1 DAY. Prov:ANDRY MUHAMMAD MD 01/02/25 Azithromycin (Azithromycin) 500 Mg Tablet, 1 TAB PO DAILY for 7 Days, #7 TAB 0 Refills Prov:ANDRY MUHAMMAD MD 01/02/25 Fluticasone Propionate (Flonase Nasal [place]) 50 Mcg/Actuation [place], 2 SPRAY NS DAILY for 7 Days, #16 GM 0 Refills Prov:JUAN RAMÍREZ 12/21/24 Ondansetron HCl (Zofran) 4 Mg/2 Ml Inj, 4 MG IM BIDAC PRN for ABDOMINAL PAIN for 5 Days, #10 ML Prov:JENNA IPNEDA MD 11/22/24 Cyclobenzaprine HCl (Cyclobenzaprine HCl ER) 15 Mg Cap.er.24h, 1 CAP PO DAILY for 10 Days, #10 CAP 0 Refills Prov:JENNA PINEDA MD 11/22/24 Clotrimazole (Clotrimazole) 1 % Cream..g., 1 APPL TP BID for 7 Days, #30 GM 0 Refills apply to affected area(s) Prov:JAGUAR SANCHES 10/28/24 Past Medical History Past Medical History: Other Medical History Other: CEREBRAL PALSY Past Surgical History: Other Surgical History Other: HEART VALVE REPAIR, BILAT LEG TENDON REPAIR Family History Family History: Negative Social History Social History: Negative ROS Dictation CONSTITUTIONAL: NO CHILLS, NO FEVER, NO WEAKNESS, NO DIAPHORESIS, NO MALAISE. HEAD/FACE: NO SIGNS OF TRAUMA. EENT: NO EYE PAIN, NO BLURRED VISION, NO TEARING, NO DOUBLE VISION, NO EAR PAIN, NO EAR DISCHARGE, NO NOSE PAIN, NO NASAL CONGESTION, NO THROAT PAIN, NO THROAT SWELLING, NO MOUTH PAIN. RESPIRATORY: NO COUGH, NO ORTHOPNEA, NO SOB, NO STRIDOR, NO WHEEZING. CARDIOVASCULAR: NO CHEST PAIN, NO EDEMA, NO PALPITATIONS, NO SYNCOPE. GASTROINTESTINAL/ABDOMINAL: NO ABDOMINAL PAIN, NO CONSTIPATION, NO DIARRHEA, NO NAUSEA, NO VOMITING. GENITOURINARY: NO ABNORMAL DISCHARGE, DYSURIA, NO FREQUENT URINATION, NO HEMATURIA. NO COMPLAINTS OF PAIN IN THE GENITALS. MUSCULOSKELETAL: NO BACK PAIN, NO GOUT, NO JOINT PAIN, NO JOINT SWELLING, NO MUSCLE PAIN, NO MUSCLE STIFFNESS, NO NECK PAIN. INTEGUMENTARY: NO CHANGE IN COLOR, NO CHANGE IN HAIR/NAILS, NO DRYNESS, NO LESION, NO LUMPS, NO RASH. NEUROLOGICAL/PSYCH: NO ANXIETY, NOT DEPRESSED, NO EMOTIONAL PROBLEM, NO HEADACHE, NO NUMBNESS, NO PRE-EXISTING DEFICIT, NO HISTORY OF SEIZURES, NO TREMORS, NO WEAKNESS. HEMATOLOGIC/LYMPHATIC: NOT ANEMIC, NO HISTORY OF BLOOD CLOTS, NO APPARENT BLEEDING, NO BRUISING, GLANDS NOT SWOLLEN. ALL SYSTEMS NEGATIVE, EXCEPT NOTED. Physical Exam Physical Exam Dictation VITAL SIGNS: REVIEWED. GENERAL APPEARANCE: ALERT, ORIENTED X3, NO ACUTE DISTRESS, OBESE. HEAD AND FACE: NON-TRAUMATIC. EYES: PERRL, PINK CONJUNCTIVAS, EYELID NO TRAUMA, ANTERIOR CHAMBER CLEAR. EARS: PINNAS INTACT AND NO SIGNS OF TRAUMA OR ERYTHEMA. EAR CANALS CLEAR AND NO DISCHARGE. TMS NO ERYTHEMA. NOSE: NO DISCHARGE, NO BLEEDING. OROPHARYNX: MOUTH NORMAL, TEETH NO CARIES, TONGUE PINK. PHARYNX CLEAR, NO ERYTHEMA. TONSILS NO EXUDATES, NO ABSCESSES NOTED. MUCOUS MEMBRANE MOIST. NECK: SUPPLE, NON-TENDER, NO THYROMEGALY, NO MASSES, NO JVD, NO BRUITS. BREAST: DEFERRED. CHEST: NO TENDERNESS, NO CREPITUS, NO PARADOXICAL MOVEMENT, NO RETRACTIONS. LUNGS: CLEAR, WELL-VENTILATED, SYMMETRIC, NO RALES, NO WHEEZING, NO RHONCHI, NO STRIDOR, GOOD BREATH SOUNDS BILATERALLY. HEART: REGULAR RATE, REGULAR RHYTHM, NO MURMUR, NO GALLOPS. VASCULAR: NO PERIPHERAL EDEMA. ABDOMEN: SOFT, POSITIVE BOWEL SOUNDS, NONDISTENDED, NO GUARDING, NONTENDER, NO REBOUND, NO MASSES NO HEPATOMEGALY, NO SPLENOMEGALY, NO NARVAEZ'S SIGN, NO HERNIAS. RECTAL: DEFERRED. GENITAL: DEFERRED. NEUROLOGICAL: NORMAL SPEECH, GROSS MOTOR FUNCTION INTACT, GROSS SENSORY FUNCTION INTACT. MUSCULOSKELETAL: NECK NONTENDER, FULL RANGE OF MOTION, BACK NONTENDER, FULL RANGE OF MOTION. EXTREMITIES: NONTENDER, FULL RANGE OF MOTION. SKIN: COLOR PINK, DRY, NO TURGOR, NO RASH, NO LACERATIONS, NO ABRASIONS, NO CONTUSIONS. LYMPHATICS: DEFERRED. Results Laboratory and Microbiology Lab and Micro Result Laboratory Tests Test 01/20/25 14:27 Urine Color YELLOW (YELLOW) Urine Appearance CLEAR (CLEAR) Urine pH 6.5 (5.0-8.0) Urine Specific [place] 1.028 (1.001-1.031) Urine Protein NEGATIVE mg/dL (NEGATIVE) Urine Glucose (UA) 200 mg/dL (NEGATIVE) H Urine Ketones NEGATIVE mg/dL (NEGATIVE) Urine Occult Blood NEGATIVE (NEGATIVE) Urine Nitrate NEGATIVE (NEGATIVE) Urine Bilirubin NEGATIVE mg/dL (NEGATIVE) Urine Urobilinogen 4.0 mg/dL (0.2-1.0) H Urine Leukocyte Esterase NEGATIVE Nito/uL Urine RBC 0-1 /HPF (0-1) Urine WBC 0-1 /HPF (0-1) Urine Bacteria None /HPF (None Seen) MDM MDM: DIFFERENTIAL DIAGNOSIS: DYSURIA, SKIN IRRITATION, RATIONALE: TESTS CONSIDERED AND ORDERED SECONDARY TO SHARED DECISION MAKING INCLUDE: PREVIOUS OUTSIDE RECORDS REVIEWED: OLD ER VISITS. RISK OF COMPLICATION AND/OR MORBIDITY OR MORTALITY OF PATIENT MANAGEMENT: NONE MEDICATIONS-PER MEDICATION RECONCILIATION PATIENT IS A 39-YEAR-OLD MALE COMING IN DUE TO DYSURIA. PATIENT ALSO STATES THAT HE HAS BEEN USING DIFFERENT TYPE OF WIPES TO DRY HIMSELF AFTER HE URINATES. HE BELIEVES THAT THIS IS CAUSING THE PROBLEM. PATIENT WILL BE DISCHARGED IN STABLE CONDITION WITH A DIAGNOSIS OF SKIN IRRITATION. ED Course Orders Procedure Category Date Status Time Urinalysis LAB 01/20/25 Complete W/Microscopic 14:17 Vital Signs Date Time Temp Pulse Resp B/P (MAP) Pulse Ox O2 Delivery O2 Flow Rate FiO2 01/20/25 14:39 98.1 88 16 97/62 98 Room Air* 0 21 01/20/25 14:19 98.1 90 16 97/62 100 Room Air 0 DX & DISP Disposition: Discharge Departure Impression: Primary Impression: Skin irritation Condition: Stable Additional Instructions: FOLLOW-UP WITH PRIMARY CARE PROVIDER IN 1 TO 2 DAYS. TAKE MEDICATIONS DIRECTED HERE IN THE EMERGENCY ROOM. OKAY TO CONTINUE HOME MEDICATIONS UNLESS OTHERWISE DISCUSSED DURING YOUR VISIT IN THE EMERGENCY ROOM TODAY. RETURN TO YOUR NEAREST EMERGENCY ROOM IF SYMPTOMS WORSEN OR IF THERE IS NO IMPROVEMENT. CALL 911 IF YOU NEED IMMEDIATE ASSISTANCE. TAKE TYLENOL [id number] NEEDED AND IF NO CONTRAINDICATIONS ARE PRESENT. INCREASE ORAL HYDRATION. A WOUND CULTURE OR URINE CULTURE WAS ORDERED HERE IN THE EMERGENCY ROOM DEPARTMENT PLEASE FOLLOW-UP WITH PRIMARY CARE PROVIDER AND ADVISE THEM TO GET REPEAT PORTS FROM OUR FACILITY. IF YOU HAD ANY EHSAN WRAP/SPLINTS THAT WERE APPLIED HERE, PLEASE DO NOT REMOVE THEM UNTIL YOU SEE YOUR PRIMARY CARE OR SPECIALTY. REFERRALS: Referrals: KSENIA NIELSEN (PCP) Time of Disposition: 14:51 BAYRON AGOSTO MD January 20, 2025 14:51
== END 2025-01-20 15:02 | disposition home or self-care (01) ==
LOC: EDH 13:57 → EEVIPCON 13:57 → EDH 15:02
DX: R21 Rash and other nonspecific skin eruption (principal); G80.8 Other cerebral palsy; Z88.0 Allergy status to penicillin; Z88.1 Allergy status to other antibiotic agents; Z91.041 Radiographic dye allergy status; Z98.890 Other specified postprocedural states
CPT/HCPCS: 81001; 99283

== ENCOUNTER 2025-01-23 13:18 | Emergency (ER) | payer MEDICAID ==
[~2025-01-23] VITALS: Ht 170.2 cm; Wt 68.0 kg
--- NOTE | 2025-01-23 13:36 | ERN ---
ED Note History of Present Illness Stated Complaint: NEEDS COVID TEST AND FLU Chief Complaint: Other Problems Time Seen by MD: 13:32 Dictation: PATIENT IS A 39-YEAR-OLD MALE HERE WITH HIS FATHER WITH COMPLAINTS OF HAVING A COUGH WITH CLEAR PHLEGM AND BODY ACHES. STATES HE HAD GONE TO A LIBERTARIAN THIS WEEKEND AND WAS EXPOSED FAMILY WHO HAD BOTH SARS COVID AND INFLUENZA. HE HAS HAD NO FEVER NO CHILLS STATES HE HAS A MILD SORE SORE THROAT. NO NAUSEA VOMITING NO LOSS OF TASTE OR SMELL. Allergies: Coded Allergies: Iodinated Contrast Media (Unverified Allergy, Unknown, 10/09/24) Penicillins (Unverified Allergy, Unknown, 10/09/24) acetaminophen (Unverified Allergy, Unknown, 10/09/24) ceftriaxone (Unverified Allergy, Unknown, 10/09/24) Home Meds Active Scripts Ketorolac Tromethamine (Ketorolac Tromethamine) 10 Mg Tablet, 1 TAB PO TID for pain for 5 Days, #15 TAB 0 Refills Prov:JAGUAR SANCHES 01/02/25 Prednisone (Prednisone) 20 Mg Tablet, 1 TAB PO AD for 6 Days, #14 TAB 0 Refills TAKE 1 TAB BY MOUTH THREE TIMES PER DAY X3 DAYS, THEN TAKE 1 TAB BY MOUTH TWICE A DAY X2 DAYS, THEN TAKE 1 TAB BY MOUTH ONCE A DAY X1 DAY. Prov:ANDRY MUHAMMAD MD 01/02/25 Azithromycin (Azithromycin) 500 Mg Tablet, 1 TAB PO DAILY for 7 Days, #7 TAB 0 Refills Prov:ANDRY MUHAMMAD MD 01/02/25 Fluticasone Propionate (Flonase Nasal [place]) 50 Mcg/Actuation [place], 2 SPRAY NS DAILY for 7 Days, #16 GM 0 Refills Prov:JUAN RAMÍREZ 12/21/24 Ondansetron HCl (Zofran) 4 Mg/2 Ml Inj, 4 MG IM BIDAC PRN for ABDOMINAL PAIN for 5 Days, #10 ML Prov:JENNA PINEDA MD 11/22/24 Cyclobenzaprine HCl (Cyclobenzaprine HCl ER) 15 Mg Cap.er.24h, 1 CAP PO DAILY for 10 Days, #10 CAP 0 Refills Prov:JENNA PINEDA MD 11/22/24 Clotrimazole (Clotrimazole) 1 % Cream..g., 1 APPL TP BID for 7 Days, #30 GM 0 Refills apply to affected area(s) Prov:JAGUAR SANCHES 10/28/24 Past Medical History Past Medical History: Other Additional Past Medical Hx: CEREBRAL PALSY Surgical History: Other Surgical History Other: HEART VALVE REPAIR, BILAT LEG TENDON REPAIR Family History: Negative Social History: Negative RN Note Reviewed/Agreed w/PFSH: Yes Review of System Dictation CONSTITUTIONAL: NEGATIVE EXCEPT FOR HPI HEAD/FACE: NEGATIVE EXCEPT FOR HPI EENT: NEGATIVE EXCEPT FOR HPI RESPIRATORY: NEGATIVE EXCEPT FOR HPI COUGH WITH CLEAR PHLEGM GASTROINTESTINAL/ABDOMINAL: NEGATIVE EXCEPT FOR HPI GENITOURINARY: NEGATIVE EXCEPT FOR HPI MUSCULOSKELETAL: NEGATIVE EXCEPT FOR HPI INTEGUMENTARY: NEGATIVE EXCEPT FOR HPI NEUROLOGICAL/PSYCH: NEGATIVE EXCEPT FOR HPI HEMATOLOGIC/LYMPHATIC: NEGATIVE EXCEPT FOR HPI ALL SYSTEMS NEGATIVE, EXCEPT NOTED ABOVE. 13 POINT REVIEW OF SYSTEMS ASSESSED AND ALL NEGATIVE EXCEPT FOR ABOVE. Initial Vital Sign VS Vital Signs Date Time Temp Pulse Resp B/P (MAP) Pulse Ox O2 Delivery O2 Flow Rate FiO2 01/23/25 13:24 97.3 95 16 138/78 95 Room Air Physical Exam Dictation VITAL SIGNS REVIEWED GENERAL APPEARANCE: ALERT, ORIENTED X 3, NO ACUTE DISTRESS, WELL DEVELOPED, NOURISHED. HEAD AND FACE: NON-TRAUMATIC. EYES: PERRL, PINK CONJUNCTIVAS, EYELID NO TRAUMA, ANTERIOR CHAMBER WITH ARCUS SENILIS. EARS: PINNAS INTACT AND NO SIGNS OF TRAUMA OR ERYTHEMA EAR CANALS CLEAR AND NO DISCHARGE TM NO ERYTHEMA NOSE: CLEAR DISCHARGE, NO BLEEDING. OROPHARYNX: MOUTH NORMAL, TONGUE PINK, PHARYNX CLEAR, MILD PHARYNGEAL ERYTHEMA, TONSILS NO EXUDATES, NO ABSCESSES NOTED, MUCOUS MEMBRANE MOIST [place] MIDLINE, VOICE IS CLEAR NECK: SUPPLE, NON-TENDER, NO THYROMEGALY, NO MASSES, NO JVD, NO BRUITS BREAST:DEFERRED CHEST:NO TENDERNESS, NO CREPITUS, NO PARADOXICAL MOVEMENT, NO RETRACTIONS LUNGS:CLEAR, WELL-VENTILATED, SYMMETRIC, NO RALES, NO WHEEZING, NO RHONCHI, NO STRIDOR, GOOD BREATH SOUNDS BILATERALLY HEART: REGULAR RATE, REGULAR RHYTHM, NO MURMUR, NO GALLOPS VASCULAR: NO PERIPHERAL EDEMA, ABDOMEN: SOFT, POSITIVE BOWEL SOUNDS, NONDISTENDED, NO GUARDING, NONTENDER, NO REBOUND, NO MASSES NO HEPATOMEGALY, NO SPLENOMEGALY, NO NARVAEZ'S SIGN, NO HERNIAS. RECTAL: DEFERRED GENITAL: DEFERRED NEUROLOGICAL: NORMAL SPEECH, MOTOR FUNCTION INTACT, SENSORY FUNCTION INTACT MUSCULOSKELETAL: NECK NONTENDER, FULL RANGE OF MOTION, BACK NONTENDER, FULL RANGE OF MOTION, EXTREMITIES: NONTENDER, FULL RANGE OF MOTION SKIN: COLOR PINK, DRY, NO TURGOR, NO RASH, NO LACERATIONS, NO ABRASIONS, NO CONTUSIONS. LYMPHATIC: DEFERRED Results (Laboratory/Radiology) Laboratory/Radiology Laboratory Tests Test 01/23/25 13:37 Influenza Type A Antigen Negative For Type A Influenza Type B Antigen Negative For Type B SARS-CoV-2 Antigen (Rapid) PRESUMPTIVE NEGATIVE Group A Streptococcus Rapid negative (NEGATIVE) Labs Reviewed?: Yes ED Course ED Course Orders Procedure Category Date Status Time Rapid (Group A Strep) LAB 01/23/25 Complete 13:33 Covid19 (Sars Antigen LAB 01/23/25 Complete Rapid) 13:33 Influenza Type A & B, LAB 01/23/25 Complete Rapid 13:33 Vital Signs Date Time Temp Pulse Resp B/P (MAP) Pulse Ox O2 Delivery O2 Flow Rate FiO2 01/23/25 13:24 97.3 95 16 138/78 95 Room Air 1432/FLU STREP AND COVID COMPLETELY NEGATIVE. Medical Decision Making MDM MEDICAL DISCHARGE MAKING BASED ON SWABS FOR FLU COVID AND STREP. ALL NEGATIVE PATIENT DISCHARGED HOME WITH COVID-19 EXPOSURE GUIDELINES DX & DISP Disposition: Discharge Departure Impression: Primary Impression: Exposure to COVID-19 virus Additional Impressions: Exposure to influenza, Cough Condition: Stable Scripts Benzonatate (Tessalon Perles) 100 Mg Cap 200 MG PO TID for cough, #60 CAP 0 Refills Prov: SARI STROUD SHOT HOLE SHOOTER 01/23/25 Additional Instructions: FOLLOW-UP WITH PRIMARY CARE PROVIDER IN 1 TO 2 DAYS. TAKE MEDICATIONS DIRECTED HERE IN THE EMERGENCY ROOM. OKAY TO CONTINUE HOME MEDICATIONS UNLESS OTHERWISE DISCUSSED DURING YOUR VISIT IN THE EMERGENCY ROOM TODAY. RETURN TO YOUR NEAREST EMERGENCY ROOM IF SYMPTOMS WORSEN OR IF THERE IS NO IMPROVEMENT. CALL 911 IF YOU NEED IMMEDIATE ASSISTANCE. TAKE TYLENOL OR MOTRIN [id number] NEEDED AND IF NO CONTRAINDICATIONS ARE PRESENT. INCREASE ORAL HYDRATION. A WOUND CULTURE OR URINE CULTURE WAS ORDERED HERE IN THE EMERGENCY ROOM DEPARTMENT PLEASE FOLLOW-UP WITH PRIMARY CARE PROVIDER AND ADVISE THEM TO GET REPEAT PORTS FROM OUR FACILITY. IF YOU HAD ANY EHSAN WRAP/SPLINTS THAT WERE APPLIED HERE, PLEASE DO NOT REMOVE THEM UNTIL YOU SEE YOUR PRIMARY CARE OR SPECIALTY. TAKE TESSALON NEEDED FOR COUGH., INCREASE YOUR WATER INTAKE. , FOLLOW UP WITH YOUR PRIMARY CARE DOCTOR NEEDED. Referrals: KSENIA NIELSEN- (PCP) Time of Disposition: 14:34 I have reviewed the case, and I agree with, Diagnosis and Plan SARI STROUD SHOT HOLE SHOOTER Jan 23, 2025 13:36
[2025-01-23 14:04] LABS: RAPID GROUP A STREP negative (NEGATIVE)
[2025-01-23 14:14] LABS: COVID19 (SARS ANTIGEN RAPID) PRESUMPTIVE NEGATIVE (NEGATIVE); INFLUENZA TYPE A Negative For Type A (NEGATIVE); INFLUENZA TYPE B Negative For Type B (NEGATIVE)
[2025-01-23] MEDS ORDERED: BENZ-39 PO (14:36)
[2025-01-23 14:51] VITALS: BP 132/61; PULSE 89; RESP 16; TEMP 97.9; O2SAT 98
== END 2025-01-23 14:52 | disposition home or self-care (01) ==
LOC: EDH 13:18
DX: R05.9 Cough, unspecified (principal); M79.10 Myalgia, unspecified site; Z20.822 Contact with and (suspected) exposure to COVID-19; Z20.828 Contact with and (suspected) exposure to other viral communicable diseases; Z88.0 Allergy status to penicillin; Z88.1 Allergy status to other antibiotic agents; Z91.041 Radiographic dye allergy status
CPT/HCPCS: 87426; 87804; 87880; 99283

== ENCOUNTER 2025-03-21 10:36 | Emergency (ER) | payer MEDICAID ==
[~2025-03-21] VITALS: Ht 170.2 cm; Wt 68.0 kg
[~2025-03-21 10:36] MED LIST changes: +BENZ-39 PO; +NITR100C4 PO
--- NOTE | 2025-03-21 11:27 | ERN ---
General Chief Complaint: Headache Stated Complaint: REOCCURING HEADACHES Time Seen by MD: 10:43 Source: patient History of Present Illness Initial Comments Mr. Tijerina is a 39-year-old male, came to the ER with recurrent headaches for 4 months. Patient describes the headache sharp "ice pick" like sensation starts from the back of his head and moves forward, always on the left side. Patient states his headache last 2-3 seconds and has them multiple occasions in a day. Patient reports nausea during the headaches however reports no vomiting, no photophobia, no phonophobia, no seizures. Patient has a past medical history of cerebral palsy and weakness in his bilateral lower limbs. He is wheelchair- bound. Family history is significant for brain aneurysm and stroke in his father and seizures in her mother and aunt. Allergies: Coded Allergies: Iodinated Contrast Media (Unverified Allergy, Unknown, 10/09/24) Penicillins (Unverified Allergy, Unknown, 10/09/24) acetaminophen (Unverified Allergy, Unknown, 10/09/24) ceftriaxone (Unverified Allergy, Unknown, 10/09/24) Home Meds Active Scripts Nitrofurantoin Monohyd/M-Cryst (Macrobid 100 mg Capsule) 100 Mg Capsule, 1 CAP PO BID for 7 Days, #14 CAP 0 Refills Prov:JUAN RAMÍREZ SUGAR MILL WORKER 01/29/25 Benzonatate (Tessalon Perles) 100 Mg Cap, 200 MG PO TID for cough, #60 CAP 0 Refills Prov:SARI STROUD FLAKING ROLL OPERATOR 01/23/25 Ketorolac Tromethamine (Ketorolac Tromethamine) 10 Mg Tablet, 1 TAB PO TID for pain for 5 Days, #15 TAB 0 Refills Prov:JAGUAR SANCHES 01/02/25 Prednisone (Prednisone) 20 Mg Tablet, 1 TAB PO AD for 6 Days, #14 TAB 0 Refills TAKE 1 TAB BY MOUTH THREE TIMES PER DAY X3 DAYS, THEN TAKE 1 TAB BY MOUTH TWICE A DAY X2 DAYS, THEN TAKE 1 TAB BY MOUTH ONCE A DAY X1 DAY. Prov:ANDRY MUHAMMAD MD 01/02/25 Azithromycin (Azithromycin) 500 Mg Tablet, 1 TAB PO DAILY for 7 Days, #7 TAB 0 Refills Prov:ANDRY MUHAMMAD MD 01/02/25 Fluticasone Propionate (Flonase Nasal [place]) 50 Mcg/Actuation [place], 2 SPRAY NS DAILY for 7 Days, #16 GM 0 Refills Prov:JUAN RAMÍREZ MIO 12/21/24 Ondansetron HCl (Zofran) 4 Mg/2 Ml Inj, 4 MG IM BIDAC PRN for ABDOMINAL PAIN for 5 Days, #10 ML Prov:JENNA PINEDA MD 11/22/24 Cyclobenzaprine HCl (Cyclobenzaprine HCl ER) 15 Mg Cap.er.24h, 1 CAP PO DAILY for 10 Days, #10 CAP 0 Refills Prov:JENNA PINEDA MD 11/22/24 Clotrimazole (Clotrimazole) 1 % Cream..g., 1 APPL TP BID for 7 Days, #30 GM 0 Refills apply to affected area(s) Prov:JAGUAR SANCHES 10/28/24 Past Medical History Past Medical History: Other Medical History Other: CEREBRAL PALSY Past Surgical History: Unknown Surgical History Other: HEART VALVE REPAIR, BILAT LEG TENDON REPAIR Family History Family History: Negative Social History Social History: Negative ROS Dictation CONSTITUTIONAL: No chills, no fever, no weakness, no diaphoresis, no malaise. HEAD/FACE: No signs of trauma. EENT: No eye pain, no blurred vision, no tearing, no double vision, no ear pain, no ear discharge, no nose pain, no nasal congestion, no throat pain, no throat swelling, no mouth pain. RESPIRATORY: No cough, no SOB, no orthopnea, no PND, no wheezing. CARDIOVASCULAR: No chest pain, no edema, no palpitations, no syncope. GASTROINTESTINAL/ABDOMINAL: No abdominal pain, no constipation, no diarrhea, no nausea, no vomiting. GENITOURINARY: No abnormal discharge, no dysuria, no frequent urination, no hematuria. No complaints of pain in the genitals. MUSCULOSKELETAL: No back pain, no gout, no joint pain, no joint swelling, no muscle pain, b/l leg muscle stiffness, no neck pain. INTEGUMENTARY: No change in color, no change in hair/nails, no dryness, no lesion, no lumps, no rash. NEUROLOGICAL/PSYCH: No anxiety, not depressed, no emotional problem, no headache, no numbness, no pre-existing deficit, no history of seizures, no tremors, no weakness. HEMATOLOGIC/LYMPHATIC: Not anemic, no history of blood clots, no apparent bleeding, no bruising, glands not swollen. All Systems Negative, Except as Noted. Physical Exam Physical Exam Dictation VITAL SIGNS: Reviewed. GENERAL APPEARANCE: Alert, oriented x3 HEAD AND FACE: Non-traumatic. EYES: PERRL, pink conjunctivas, eyelid no trauma, anterior chamber clear. EARS: Pinnas intact and no signs of trauma or erythema. Ear canals clear and no discharge. TMs no erythema. NOSE: No discharge, no bleeding. OROPHARYNX: Mouth normal, teeth no caries, tongue pink. Pharynx clear, no erythema. Tonsils no exudates, no abscesses noted. Mucous membrane moist. NECK: Supple, non-tender, no thyromegaly, no masses, no JVD, no bruits. BREAST: Deferred. CHEST: No tenderness, no crepitus, no paradoxical movement, no retractions. LUNGS: Clear, well-ventilated, symmetric, no rales, no wheezing, no rhonchi, no stridor, good breath sounds bilaterally. HEART: Regular rate, regular rhythm, no murmur, no gallops. VASCULAR: No peripheral edema. ABDOMEN: Soft, positive bowel sounds, nondistended, no guarding, nontender, no rebound, no masses no hepatomegaly, no splenomegaly, no Lamar's sign, no hernias. RECTAL: Deferred. GENITAL: Deferred. NEUROLOGICAL: Normal speech, gross motor function intact, gross sensory function intact. MUSCULOSKELETAL: Neck nontender, full range of motion in the upper limbs, back nontender. EXTREMITIES: Nontender, limited range of motion the legs due to contractures from cerebral palsy. SKIN: Color pink, dry, no turgor, no rash, no lacerations, no abrasions, no contusions. LYMPHATICS: Deferred. Stroke Patient?: No NIH STROKE SCALE: NIH STROKE SCALE Response (Comments) Value Level of Consciousness Alert 0 Ask patient month and their age Answers both correct 0 Command to open eyes, make fist and let go Obeys both correct 0 Best gaze (horizontal eye movement) Normal 0 Visual Field Testing No Visual Field Loss 0 Facial Paresis Normal / Symmetrical 0 Motor Function - Left Arm Normal 0 Motor Function - Right Arm Normal 0 Motor Function - Left Leg Untestable Motor Function - Right Leg Untestable Limb Ataxia No Ataxia 0 Sensory-pin prick to arms, legs, trunk and face Normal 0 Best Language (describe picture, name items and read) No Aphasia 0 Dysarthria (read several words) Normal Articulation 0 Extinction and Inattention Normal 0 Total 0 MDM Chief complaint: Patient presented to the ED with recurrent headaches since 4 months, unilateral, stabbing like, lasting for a few seconds. Past medical history: Cerebral palsy with weakness in the b/l lower extremities. Otherwise unremarkable. Vitals: Vitals were stable through out the ED course. Review of systems: ROS was unremarkable. Physical Exam: Physical exam is unremarkable. Labs: Patient did not meet criteria for any testing. Imaging: CT brain is normal and did not show any abnormalities. Differential diagnosis: Migraine without aura, Tension type headaches. Assessment and Plan: ED Course Orders Procedure Category Date Status Time Ct Head/Brain W/O CT 03/21/25 Resulted Contrast 11:13 Vital Signs Date Time Temp Pulse Resp B/P (MAP) Pulse Ox O2 Delivery O2 Flow Rate FiO2 03/21/25 13:15 98.4 75 16 110/66 98 Room Air* 0 21 03/21/25 10:44 98.4 76 16 114/66 98 Room Air DX & DISP Disposition: Discharge Departure Impression: Primary Impression: Migraine without aura Condition: Stable Additional Instructions: Your CT Brain looks normal. No evidence of aneurysms found. They are probably Migraine headaches. Use Ibuprofen as needed for headaches. Referrals: KSENIA NIELSEN SUGAR MILL WORKER-BC (PCP) I performed a substantive portion of the visit. I have reviewed and personally made and approve the management plan that is documented in the notes by myself with JOÃO/resident. I acknowledged full responsibility for the patient's management plan. JOVON CUNHA MD Mar 21, 2025 11:27 PHYLLIS SRINIVASAN DO Mar 22, 2025 08:00
--- NOTE | 2025-03-21 12:44 | HMCIMG ---
EXAM: CT Head Without IV contrast. CLINICAL HISTORY: Recurrent headaches for 4 months TECHNIQUE: Axial computed tomography images of the head/brain without intravenous contrast. COMPARISON: None provided. FINDINGS: BRAIN: No evidence of acute hemorrhage. No mass lesion. No CT evidence for acute territorial infarct. No midline shift or extra-axial collections. VENTRICLES: No hydrocephalus. ORBITS: The orbits are unremarkable. SINUSES AND MASTOIDS: The paranasal sinuses and mastoid air cells are clear. BONES: No fracture. SOFT TISSUES: Unremarkable. IMPRESSION: No acute intracranial abnormality. /[place]
[2025-03-21 13:15] VITALS: BP 110/66; PULSE 75; RESP 16; TEMP 98.4; O2SAT 98
== END 2025-03-21 13:37 | disposition home or self-care (01) ==
LOC: EDH 10:36
DX: G43.009 Migraine without aura, not intractable, without status migrainosus (principal); Z88.0 Allergy status to penicillin; Z88.1 Allergy status to other antibiotic agents; Z91.041 Radiographic dye allergy status; Z99.3 Dependence on wheelchair
CPT/HCPCS: 70450; 99284

== ENCOUNTER 2025-04-07 16:57 | Emergency (ER) | payer MEDICAID ==
[~2025-04-07] VITALS: Ht 162.6 cm; Wt 65.8 kg
[~2025-04-07 16:57] MED LIST changes: +IBUP-1492 PO
[2025-04-07] MEDS ORDERED: ONDA-243 PO (17:25)
--- NOTE | 2025-04-07 17:26 | ERN ---
ED Note History of Present Illness Stated Complaint: DIARRHEA Chief Complaint: Diarrhea Time Seen by MD: 17:07 Time Seen by Midlevel: 17:08 Dictation: 39-year-old male who presents to the emergency department accompanied by his uncle for evaluation due to reported having a possible adverse reaction from having had a Fleet's enema today at 1:00 p.m. at another emergency department. Patient states that he received a fleets enema due to having a history of constipation. Along with the enema, he states that he received 1 L of IV fluids. He states that he has had 5 episodes of diarrhea since he received the enema. Currently, he denies having any fever, chills, vomiting or abdominal pain. However, he does report having occasional nausea patient states that the diarrhea is watery in nature. Nonetheless, he states that he has been 1 since the patient isn't in keeping the same as hydrated as possible some binge drinking fluids and some Pedialyte. Upon initial evaluation, the patient presents here in no acute distress. Allergies: Coded Allergies: Iodinated Contrast Media (Unverified Allergy, Unknown, 10/09/24) Penicillins (Unverified Allergy, Unknown, 10/09/24) acetaminophen (Unverified Allergy, Unknown, 10/09/24) ceftriaxone (Unverified Allergy, Unknown, 10/09/24) Emergency Care RIVETER HAND: None Home Meds Active Scripts Ibuprofen (Ibuprofen) 600 Mg Tablet, 600 MG PO Q6H PRN for PAIN, #30 TAB Prov:SARI STROUD NP 04/06/25 Nitrofurantoin Monohyd/M-Cryst (Macrobid 100 mg Capsule) 100 Mg Capsule, 1 CAP PO BID for 7 Days, #14 CAP 0 Refills Prov:JUAN RAMÍREZP 01/29/25 Benzonatate (Tessalon Perles) 100 Mg Cap, 200 MG PO TID for cough, #60 CAP 0 Refills Prov:SARI STROUD EMPLOYEE COMMUNICATIONS MANAGER 01/23/25 Ketorolac Tromethamine (Ketorolac Tromethamine) 10 Mg Tablet, 1 TAB PO TID for pain for 5 Days, #15 TAB 0 Refills Prov:JAGUAR SANCHES 01/02/25 Prednisone (Prednisone) 20 Mg Tablet, 1 TAB PO AD for 6 Days, #14 TAB 0 Refills TAKE 1 TAB BY MOUTH THREE TIMES PER DAY X3 DAYS, THEN TAKE 1 TAB BY MOUTH TWICE A DAY X2 DAYS, THEN TAKE 1 TAB BY MOUTH ONCE A DAY X1 DAY. Prov:ANDRY MUHAMMAD MD 01/02/25 Azithromycin (Azithromycin) 500 Mg Tablet, 1 TAB PO DAILY for 7 Days, #7 TAB 0 Refills Prov:ANDRY MUHAMMAD MD 01/02/25 Fluticasone Propionate (Flonase Nasal [place]) 50 Mcg/Actuation [place], 2 SPRAY NS DAILY for 7 Days, #16 GM 0 Refills Prov:JUAN RAMÍREZ VOLUMETRIC WEIGHER 12/21/24 Ondansetron HCl (Zofran) 4 Mg/2 Ml Inj, 4 MG IM BIDAC PRN for ABDOMINAL PAIN for 5 Days, #10 ML Prov:JENNA PINEDA MD 11/22/24 Cyclobenzaprine HCl (Cyclobenzaprine HCl ER) 15 Mg Cap.er.24h, 1 CAP PO DAILY for 10 Days, #10 CAP 0 Refills Prov:JENNA PINEDA MD 11/22/24 Clotrimazole (Clotrimazole) 1 % Cream..g., 1 APPL TP BID for 7 Days, #30 GM 0 Refills apply to affected area(s) Prov:JAGUAR SANCHES 10/28/24 Past Medical History Past Medical History: Other Additional Past Medical Hx: CEREBRAL PALSY Surgical History: None Surgical History Other: HEART VALVE REPAIR, BILAT LEG TENDON REPAIR Family History: Negative Social History: Negative RN Note Reviewed/Agreed w/PFSH: Yes Review of System Dictation Abdomen/GI: Nausea, diarrhea Initial Vital Sign VS Vital Signs Date Time Temp Pulse Resp B/P (MAP) Pulse Ox O2 Delivery O2 Flow Rate FiO2 04/07/25 17:02 98.2 89 18 128/87 98 Physical Exam Dictation General: awake, alert, NAD Head/Face: Normocephalic, atraumatic Eyes: PERRL, EOMI ENT: Oral mucosa moist Neck: Trachea midline, supple Cardiovascular: RRR, no edema Respiratory: Symmetrical, non-labored Abdomen: Soft, non-tender, non-distended, no guarding. Skin: Warm, dry, good turgor, no rash MS/Extremity: Pulses equal, no cyanosis, neurovascular intact, FROM Neuro: COAx4, GCS 15, steady gait, ED Course ED Course Vital Signs Date Time Temp Pulse Resp B/P (MAP) Pulse Ox O2 Delivery O2 Flow Rate FiO2 04/07/25 17:02 98.2 89 18 128/87 98 Medical Decision Making MDM MDM: Differential diagnosis: Nausea, vomiting, diarrhea. Rationale: Tests considered and ordered secondary to shared decision making include: Previous outside records reviewed: Old ER visits. Risk of complication and/or morbidity or mortality of patient management: None Medications-Per medication reconciliation Need for hospitalization: Patient does not meet criteria for hospitalization. Need for emergency major/minor surgery: No There are no social concerns with this patient. Prescription drug management Prescriptions will include symptomatic care Patient's prior external medical records from other ER visits were reviewed by me as indicated. Prior testing and results from previous visits were reviewed. Prior tests were taken into account with medical decision making and resource utilization, independent historian/historians were used to obtain complete m edical history. I independently interpreted the test that were performed, results were reviewed by me and considered findings on radiology if ordered. Medical management and examination interpretation discussions were had by me with other qualified healthcare professionals as indicated for the patient's care. An in-depth discussion was done with the patient/ankle in regards to hydration per oral fluids and monitoring for which he verbalized understanding and agrees to the treatment plan of care. DX & DISP Disposition: Discharge Departure Impression: Primary Impression: Diarrhea Additional Impression: Nausea Condition: Stable Scripts Ondansetron (Ondansetron Odt) 4 Mg Tab.rapdis 4 MG PO TIDP PRN for nausea, #16 TAB 0 Refills Prov: LEOBARDO DELCID 04/07/25 Referrals: KSENIA NIELSEN-OUSMANE (PCP) Time of Disposition: 17:25 LEOBARDO DELCID Apr 07, 2025 17:26
[2025-04-07 17:50] VITALS: BP 120/82; PULSE 82; RESP 18; TEMP 98.2; O2SAT 97
== END 2025-04-07 18:06 | disposition home or self-care (01) ==
LOC: EDH 16:57
DX: R19.7 Diarrhea, unspecified (principal); R11.0 Nausea; Z91.041 Radiographic dye allergy status; Z88.0 Allergy status to penicillin; Z88.1 Allergy status to other antibiotic agents; Z79.899 Other long term (current) drug therapy
CPT/HCPCS: 99284

== ENCOUNTER 2025-04-12 22:39 | Emergency (ER) | payer MEDICAID ==
[~2025-04-12] VITALS: Ht 170.2 cm; Wt 68.0 kg
[~2025-04-12 22:39] MED LIST changes: +ONDA-243 PO
[2025-04-12 22:40] VITALS: BP 99/62; PULSE 96; RESP 20; TEMP 98.1
[2025-04-12] MEDS ORDERED: MAG/ALUM/SIMETH 30 ML UDCUP PO ONE (23:30)
[2025-04-12] MEDS ORDERED: LIDOCAINE HCL 2% VISCOUS 15 ML UDCUP PO ONE (23:30)
[2025-04-12] MEDS ORDERED: DICYCLOMINE HCL 10 MG/5 ML ML PO ONE (23:30)
--- NOTE | 2025-04-13 01:17 | NUR ---
NO ANSWER WHEN CALLED FOR ROOM PLACEMENT, BORDER MACHINE OPERATOR STATES HE ALSO COULD NOT FIND PATIENT X SEVERAL ATTEMPTS.
--- NOTE | 2025-04-13 01:17 | NUR ---
PT CALLED, NO ANSWER, NOT IN LOBBY WITH FAMILY
--- NOTE | 2025-04-13 01:24 | ERN ---
ED Note History of Present Illness Stated Complaint: ABD PAIN N/V Chief Complaint: Abdominal Pain Time Seen by MD: 22:45 Time Seen by Midlevel: 22:45 Dictation: The patient is a 39-year-old male with a history of H pylori, [place]'s palsy who presents to the emergency department with complaints of epigastric abdominal pain, nausea onset prior to arrival after he ate chicken tenders. Patient otherwise denies any fevers, denies diarrhea or constipation. Patient was seen previously at another ER two days ago where he had a CT scan and was diagnosed with a constipation. Allergies: Coded Allergies: Iodinated Contrast Media (Unverified Allergy, Unknown, 10/09/24) Penicillins (Unverified Allergy, Unknown, 10/09/24) acetaminophen (Unverified Allergy, Unknown, 10/09/24) ceftriaxone (Unverified Allergy, Unknown, 10/09/24) Home Meds Active Scripts Ondansetron (Ondansetron Odt) 4 Mg Tab.rapdis, 4 MG PO TIDP PRN for nausea, #16 TAB 0 Refills Prov:LEOBARDO DELCID HALF BACKER 04/07/25 Ibuprofen (Ibuprofen) 600 Mg Tablet, 600 MG PO Q6H PRN for PAIN, #30 TAB Prov:SARI STROUD NP 04/06/25 Nitrofurantoin Monohyd/M-Cryst (Macrobid 100 mg Capsule) 100 Mg Capsule, 1 CAP PO BID for 7 Days, #14 CAP 0 Refills Prov:JUAN RAMÍREZ HALF BACKER 01/29/25 Benzonatate (Tessalon Perles) 100 Mg Cap, 200 MG PO TID for cough, #60 CAP 0 Refills Prov:SARI STROUD NP 01/23/25 Ketorolac Tromethamine (Ketorolac Tromethamine) 10 Mg Tablet, 1 TAB PO TID for pain for 5 Days, #15 TAB 0 Refills Prov:JAGUAR SANCHES 01/02/25 Prednisone (Prednisone) 20 Mg Tablet, 1 TAB PO AD for 6 Days, #14 TAB 0 Refills TAKE 1 TAB BY MOUTH THREE TIMES PER DAY X3 DAYS, THEN TAKE 1 TAB BY MOUTH TWICE A DAY X2 DAYS, THEN TAKE 1 TAB BY MOUTH ONCE A DAY X1 DAY. Prov:ANDRY MUHAMMAD MD 01/02/25 Azithromycin (Azithromycin) 500 Mg Tablet, 1 TAB PO DAILY for 7 Days, #7 TAB 0 Refills Prov:ANDRY MUHAMMAD MD 01/02/25 Fluticasone Propionate (Flonase Nasal [place]) 50 Mcg/Actuation [place], 2 SPRAY NS DAILY for 7 Days, #16 GM 0 Refills Prov:JUAN RAMÍREZ HALF BACKER 12/21/24 Ondansetron HCl (Zofran) 4 Mg/2 Ml Inj, 4 MG IM BIDAC PRN for ABDOMINAL PAIN for 5 Days, #10 ML Prov:JENNA PINEDA MD 11/22/24 Cyclobenzaprine HCl (Cyclobenzaprine HCl ER) 15 Mg Cap.er.24h, 1 CAP PO DAILY for 10 Days, #10 CAP 0 Refills Prov:JENNA PINEDA MD 11/22/24 Clotrimazole (Clotrimazole) 1 % Cream..g., 1 APPL TP BID for 7 Days, #30 GM 0 Refills apply to affected area(s) Prov:JAGUAR SANCHES 10/28/24 Past Medical History Past Medical History: Other Additional Past Medical Hx: CEREBRAL PALSY, H- PYLORI Surgical History: None Surgical History Other: HEART VALVE REPAIR, BILAT LEG TENDON REPAIR Family History: Negative Social History: Negative RN Note Reviewed/Agreed w/PFSH: Yes Review of System Dictation Constitutional: Negative for fever,chills, and weight loss Eyes: Negative for injury, pain,redness, and discharge ENT: Negative for injury,pain or swelling Cardiovascular: Negative for chest pain, palpitations, and edema Respiratory: Negative for shortness of breath, cough, and wheezing, Abdomen/GI: Negative for, vomiting, diarrhea, and constipation positive for abdominal pain, nausea Back: Negative for injury and pain : Negative for injury, bleeding and discharge MS/Extremity: Negative for injury and deformity Skin: Negative for rash, and discoloration Neuro: Negative for headache, weakness, numbness, tingling, and seizure Psych: Negative for suicide ideation, homicidal ideation, and hallucinations Initial Vital Sign VS Vital Signs Date Time Temp Pulse Resp B/P (MAP) Pulse Ox O2 Delivery O2 Flow Rate FiO2 04/12/25 22:40 98.1 96 20 99/62 98 Room Air Physical Exam Dictation Vital Signs reviewed General Appearance: Alert, oriented x 3, no acute distress, well developed, nourished. Head and Face: non-traumatic. Eyes: PERRL, pink conjunctivas, eyelid no trauma, anterior chamber with arcus senilis. Ears: Pinnas intact and no signs of trauma or erythema ear canals clear and no discharge TM no erythema Nose: No discharge, no bleeding. Oropharynx: Mouth normal, tongue pink. pharynx clear,no erythema, tonsils no exudates, no abscesses noted, mucous membrane moist Neck: Supple, non-tender, no thyromegaly, no masses, no JVD, no bruits Breast:Deferred Chest:No tenderness, no crepitus, no paradoxical movement, no retractions Lungs:Clear, well-ventilated, symmetric, no rales, no wheezing, no rhonchi, no stridor, good breath sounds bilaterally Heart: Regular rate, regular rhythm, no murmur, no gallops Vascular: no peripheral edema, Abdomen: Soft, positive bowel sounds, nondistended, no guarding, Epigastric tenderness no rebound, no masses no hepatomegaly, no splenomegaly, no Lamar's sign, no hernias. Rectal: Deferred Genital: Deferred Neurological: Normal speech, motor function intact, sensory function intact Musculoskeletal: Neck nontender, full range of motion, back nontender, full range of motion, Extremities: nontender, decreased range of motion to lower extremities Skin: Color pink, dry, no turgor, no rash, no lacerations, no abrasions, no contusions. Lymphatic: Deferred Results (Laboratory/Radiology) Labs Reviewed?: Yes ED Course ED Course Orders Procedure Category Date Status Time Vital Signs Per CPOE 04/12/25 Transmitted Routine 22:42 Saline Lock Iv CPOE 04/12/25 Transmitted 22:42 Ondansetron 4mg Inj PHA 04/12/25 Complete (Zofran 4mg Inj) 23:30 Lidocaine Hcl 2% PHA 04/12/25 Complete Viscous (Lidocaine Hcl 23:30 Mag/Alum/Simeth 30ml PHA 04/12/25 Complete (Maalox Plus 30ml) 23:30 Dicyclomine Hcl PHA 04/12/25 Complete (Bentyl 10mg/5ml 23:30 Current Medications Medications (Trade) Dose Ordered Sig/Carmen Route PRN Reason Start Time Stop Time Status Last Admin Dose Admin Al Hydroxide/Mg Hydroxide (MAALox PLUS 30ML) 30 ml ONCE ONCE PO 04/12/25 23:30 04/12/25 23:31 DC Dicyclomine HCl (Bentyl 10mg/5ml Syrup) 10 mg ONCE ONCE PO 04/12/25 23:30 04/12/25 23:31 DC Lidocaine HCl (Lidocaine HCl 2% Viscous) 10 ml ONCE ONCE PO 04/12/25 23:30 04/12/25 23:31 DC Ondansetron HCl (zoFRAN 4MG INJ) 4 mg ONCE ONCE IVP 04/12/25 23:30 04/12/25 23:31 DC Vital Signs Date Time Temp Pulse Resp B/P (MAP) Pulse Ox O2 Delivery O2 Flow Rate FiO2 04/12/25 22:40 98.1 96 20 99/62 98 Room Air Medical Decision Making MDM The patient is a 39-year-old male with a history of H pylori, [place]'s palsy who presents to the emergency department with complaints of epigastric abdominal pain, nausea onset prior to arrival after he ate chicken tenders. Patient otherwise denies any fevers, denies diarrhea or constipation. Patient was seen previously at another ER two days ago where he had a CT scan and was diagnosed with a constipation. Differential diagnosis: Gastritis, cholelithiasis, electrolyte imbalance, gastroenteritis Patient eloped from ER without notifying staff. DX & DISP Disposition: AMA Departure Condition: Stable Referrals: KSENIA NIELSEN-BC (PCP) I have reviewed the case, and I agree with, Diagnosis and Plan JUAN RAMÍREZ Apr 13, 2025 01:24
== END 2025-04-13 01:17 | disposition left against medical advice (07) ==
LOC: EDH 22:39
DX: R10.13 Epigastric pain (principal); R11.0 Nausea; G80.9 Cerebral palsy, unspecified; Z88.0 Allergy status to penicillin; Z88.1 Allergy status to other antibiotic agents; Z91.041 Radiographic dye allergy status
CPT/HCPCS: 99282

== ENCOUNTER 2025-04-21 14:12 | Emergency (ER) | payer MEDICAID ==
[~2025-04-21] VITALS: Ht 170.2 cm; Wt 68.0 kg
[2025-04-21 14:20] VITALS: BP 108/54; PULSE 90; RESP 16; TEMP 98.4; O2SAT 99
--- NOTE | 2025-04-21 14:55 | ERN ---
ED Note History of Present Illness Stated Complaint: LEFT ARM PAIN Chief Complaint: Upper Extremity Pain/Injury Time Seen by MD: 14:14 Dictation: PATIENT IS A 39-YEAR-OLD MALE HERE WITH COMPLAINTS OF NON TRAUMA LEFT SHOULDER PAIN HE HAS HAD FOR 3-4 DAYS. [facility] NE[facility]OVASC[facility] CMS INTACT. HAS NOT TAKEN ANYTHING PRIOR TO ARRIVAL FOR PAIN DENIES ANY TRAUMA. IS IN A WHEELCHAIR AND HAS CEREBRAL PALSY. NO INFLAMMATION NO SWELLING NO FEVER NO CHILLS Allergies: Coded Allergies: Iodinated Contrast Media (Unverified Allergy, Unknown, 10/09/24) Penicillins (Unverified Allergy, Unknown, 10/09/24) acetaminophen (Unverified Allergy, Unknown, 10/09/24) ceftriaxone (Unverified Allergy, Unknown, 10/09/24) diphenhydramine (Unverified Allergy, Unknown, 04/21/25) Home Meds Active Scripts Ondansetron (Ondansetron Odt) 4 Mg Tab.rapdis, 4 MG PO TIDP PRN for nausea, #16 TAB 0 Refills Prov:LEOBARDO DELCID TANK TRUCK DRIVER 04/07/25 Ibuprofen (Ibuprofen) 600 Mg Tablet, 600 MG PO Q6H PRN for PAIN, #30 TAB Prov:SARI STROUD NP 04/06/25 Nitrofurantoin Monohyd/M-Cryst (Macrobid 100 mg Capsule) 100 Mg Capsule, 1 CAP PO BID for 7 Days, #14 CAP 0 Refills Prov:JUAN RAMÍREZ TANK TRUCK DRIVER 01/29/25 Benzonatate (Tessalon Perles) 100 Mg Cap, 200 MG PO TID for cough, #60 CAP 0 Refills Prov:SARI STROUD NP 01/23/25 Ketorolac Tromethamine (Ketorolac Tromethamine) 10 Mg Tablet, 1 TAB PO TID for pain for 5 Days, #15 TAB 0 Refills Prov:JAGUAR SANCHES 01/02/25 Prednisone (Prednisone) 20 Mg Tablet, 1 TAB PO AD for 6 Days, #14 TAB 0 Refills TAKE 1 TAB BY MOUTH THREE TIMES PER DAY X3 DAYS, THEN TAKE 1 TAB BY MOUTH TWICE A DAY X2 DAYS, THEN TAKE 1 TAB BY MOUTH ONCE A DAY X1 DAY. Prov:ANDRY MUHAMMAD MD 01/02/25 Azithromycin (Azithromycin) 500 Mg Tablet, 1 TAB PO DAILY for 7 Days, #7 TAB 0 Refills Prov:ANDRY MUHAMMAD MD 01/02/25 Fluticasone Propionate (Flonase Nasal [place]) 50 Mcg/Actuation [place], 2 SPRAY NS DAILY for 7 Days, #16 GM 0 Refills Prov:JUAN RAMÍREZ T[employer] TRUCK DRIVER 12/21/24 Ondansetron HCl (Zofran) 4 Mg/2 Ml Inj, 4 MG IM BIDAC PRN for ABDOMINAL PAIN for 5 Days, #10 ML Prov:JENNA PINEDA MD 11/22/24 Cyclobenzaprine HCl (Cyclobenzaprine HCl ER) 15 Mg Cap.er.24h, 1 CAP PO DAILY for 10 Days, #10 CAP 0 Refills Prov:JENNA PINEDA MD 11/22/24 Clotrimazole (Clotrimazole) 1 % Cream..g., 1 APPL TP BID for 7 Days, #30 GM 0 Refills apply to affected area(s) Prov:JAGUAR SANCHES 10/28/24 Past Medical History Past Medical History: Other Additional Past Medical Hx: cerebral palsy Surgical History: Other Surgical History Other: heart sx, lul leg sx Family History: Negative Social History: Negative RN Note Reviewed/Agreed w/PFSH: Yes Review of System Dictation CONSTITUTIONAL: NEGATIVE EXCEPT FOR HPI HEAD/FACE: NEGATIVE EXCEPT FOR HPI EENT: NEGATIVE EXCEPT FOR HPI RESPIRATORY: NEGATIVE EXCEPT FOR HPI GASTROINTESTINAL/ABDOMINAL: NEGATIVE EXCEPT FOR HPI GENITOURINARY: NEGATIVE EXCEPT FOR HPI MUSCULOSKELETAL: NEGATIVE EXCEPT FOR HPI LEFT SHOULDER PAIN INTEGUMENTARY: NEGATIVE EXCEPT FOR HPI NEUROLOGICAL/PSYCH: NEGATIVE EXCEPT FOR HPI HEMATOLOGIC/LYMPHATIC: NEGATIVE EXCEPT FOR HPI ALL SYSTEMS NEGATIVE, EXCEPT NOTED ABOVE. 13 POINT REVIEW OF SYSTEMS ASSESSED AND ALL NEGATIVE EXCEPT FOR ABOVE. Initial Vital Sign VS Vital Signs Date Time Temp Pulse Resp B/P (MAP) Pulse Ox O2 Delivery O2 Flow Rate FiO2 04/21/25 14:14 98.4 90 16 108/54 99 Room Air 0 04/21/25 14:20 21 Physical Exam Dictation VITAL SIGNS REVIEWED GENERAL APPEARANCE: ALERT, ORIENTED X 3, NO ACUTE DISTRESS, WELL DEVELOPED, NOURISHED. HEAD AND FACE: NON-TRAUMATIC. EYES: PERRL, PINK CONJUNCTIVAS, EYELID NO TRAUMA, ANTERIOR CHAMBER WITH ARCUS SENILIS. EARS: PINNAS INTACT AND NO SIGNS OF TRAUMA OR ERYTHEMA EAR CANALS CLEAR AND NO DISCHARGE TM NO ERYTHEMA NOSE: NO DISCHARGE, NO BLEEDING. OROPHARYNX: MOUTH NORMAL, TONGUE PINK, PHARYNX CLEAR,NO ERYTHEMA, TONSILS NO EXUDATES, NO ABSCESSES NOTED, MUCOUS MEMBRANE MOIST NECK: SUPPLE, NON-TENDER, NO THYROMEGALY, NO MASSES, NO JVD, NO BRUITS BREAST:DEFERRED CHEST:NO TENDERNESS, NO CREPITUS, NO PARADOXICAL MOVEMENT, NO RETRACTIONS LUNGS:CLEAR, WELL-VENTILATED, SYMMETRIC, NO RALES, NO WHEEZING, NO RHONCHI, NO STRIDOR, GOOD BREATH SOUNDS BILATERALLY HEART: REGULAR RATE, REGULAR RHYTHM, NO MURMUR, NO GALLOPS VASCULAR: NO PERIPHERAL EDEMA, ABDOMEN: SOFT, POSITIVE BOWEL SOUNDS, NONDISTENDED, NO GUARDING, NONTENDER, NO REBOUND, NO MASSES NO HEPATOMEGALY, NO SPLENOMEGALY, NO NARVAEZ'S SIGN, NO HERNIAS. RECTAL: DEFERRED GENITAL: DEFERRED NEUROLOGICAL: NORMAL SPEECH, MOTOR FUNCTION INTACT, SENSORY FUNCTION INTACT MUSCULOSKELETAL: NECK NONTENDER, FULL RANGE OF MOTION, BACK NONTENDER, FULL RANGE OF MOTION, EXTREMITIES: MILD DIFFUSE LEFT SHOULDER PAIN WITH RANGE OF MOTION. FULL RANGE OF MOTION RANGE OF MOTION NOTED DISTAL NEUROVASCULAR CMS INTACT SKIN: COLOR PINK, DRY, NO TURGOR, NO RASH, NO LACERATIONS, NO ABRASIONS, NO CONTUSIONS. LYMPHATIC: DEFERRED Results (Laboratory/Radiology) Laboratory/Radiology LEFT SHOULDER X-RAY NEGATIVE Labs Reviewed?: Yes ED Course ED Course Orders Procedure Category Date Status Time Shoulder Comp 2+Vws Lt RAD 04/21/25 Taken 14:53 Ibuprofen 600 Mg PHA 04/21/25 Complete Tablet (Motrin) 15:00 Current Medications Medications (Trade) Dose Ordered Sig/Carmen Route PRN Reason Start Time Stop Time Status Last Admin Dose Admin Ibuprofen (moTRIN) 600 mg ONCE ONCE PO 04/21/25 15:00 04/21/25 15:01 DC Vital Signs Date Time Temp Pulse Resp B/P (MAP) Pulse Ox O2 Delivery O2 Flow Rate FiO2 04/21/25 14:20 98.4 90 16 108/54 99 Room Air* 0 21 04/21/25 14:14 98.4 90 16 108/54 99 Room Air 0 1612/PATIENT DISCHARGED HOME WITH SHOULDER STRAIN TOLD TO SEE YOUR PRIMARY CARE DOCTOR ON WEDNESDAY IBUPROFEN NEEDED FOR PAIN Medical Decision Making MDM MEDICAL DISCHARGE MAKING BASED ON PAIN MANAGEMENT AND LEFT SHOULDER X-RAY. LEFT SHOULDER X-RAY NEGATIVE DISCHARGED HOME WITH IBUPROFEN TOLD SEE PRIMARY CARE DOCTOR FOR THE NEXT 2-3 DAYS FOR FOLLOW UP DX & DISP Disposition: Discharge Departure Impression: Primary Impression: Strain of left shoulder Condition: Stable Scripts Ibuprofen (Ibuprofen) 600 Mg Tablet 600 MG PO Q6H PRN for PAIN, #30 TAB Prov: SARI STROUD NP 04/21/25 Additional Instructions: FOLLOW-UP WITH PRIMARY CARE PROVIDER IN 1 TO 2 DAYS. TAKE MEDICATIONS DIRECTED HERE IN THE EMERGENCY ROOM. OKAY TO CONTINUE HOME MEDICATIONS UNLESS OTHERWISE DISCUSSED DURING YOUR VISIT IN THE EMERGENCY ROOM TODAY. RETURN TO YOUR NEAREST EMERGENCY ROOM IF SYMPTOMS WORSEN OR IF THERE IS NO IMPROVEMENT. CALL 911 IF YOU NEED IMMEDIATE ASSISTANCE. TAKE TYLENOL OR MOTRIN [id number] NEEDED AND IF NO CONTRAINDICATIONS ARE PRESENT. INCREASE ORAL HYDRATION. A WOUND CULTURE OR URINE CULTURE WAS ORDERED HERE IN THE EMERGENCY ROOM DEPARTMENT PLEASE FOLLOW-UP WITH PRIMARY CARE PROVIDER AND ADVISE THEM TO GET REPEAT PORTS FROM OUR FACILITY. IF YOU HAD ANY EHSAN WRAP/SPLINTS THAT WERE APPLIED HERE, PLEASE DO NOT REMOVE THEM UNTIL YOU SEE YOUR PRIMARY CARE OR SPECIALTY. TAKE IBUPROFEN NEEDED FOR PAIN. FOLLOW UP WITH ORTHOPEDIC SURGEON, CALL FOR AN APPOINTMENT NEXT WEDNESDAY. OR SEE YOUR PRIMARY CARE DOCTOR FOR FOLLOW UP WARM COMPRESSES SHOULDER THREE TO 4 TIMES A DAY. Referrals: KSENIA NIELSEN-OUSMANE (PCP) JAYESH JEFFREY MD Time of Disposition: 16:14 I have reviewed the case, and I agree with, Diagnosis and Plan SARI STROUD NP Apr 21, 2025 14:55
--- NOTE | 2025-04-21 16:39 | HMCIMG ---
EXAM: CR right Shoulder, 2 View. CLINICAL HISTORY: NON TRAUMA LEFT SHOULDER PAIN FOUR DAYS COMPARISON: None provided. FINDINGS: BONES: No acute fracture or aggressive appearing osseous lesion. JOINTS: No dislocation. The joint spaces are normal. SOFT TISSUES: The soft tissues are unremarkable. IMPRESSION: No acute abnormality evident on examination of the right shoulder. No acute fracture or dislocation. /[place]
== END 2025-04-21 16:21 | disposition home or self-care (01) ==
LOC: EDH 14:12
DX: S46.912A Strain of unspecified muscle, fascia and tendon at shoulder and upper arm level, left arm, initial encounter (principal); Z88.0 Allergy status to penicillin; Z88.1 Allergy status to other antibiotic agents; Z91.041 Radiographic dye allergy status; X58.XXXA Exposure to other specified factors, initial encounter; Y93.89 Activity, other specified; Y92.89 Other specified places as the place of occurrence of the external cause; Y99.8 Other external cause status
CPT/HCPCS: 73030; 99283

== ENCOUNTER 2025-04-25 13:33 | Emergency (ER) | payer MEDICAID ==
[~2025-04-25] VITALS: Ht 170.2 cm; Wt 68.0 kg
[2025-04-25 14:32] LABS: IMMATURE GRANULOCYTE ABSOLUTE 0.02 K/uL (0-1); NUCLEATED RED BLOOD CELLS 0.0 % (0.0-0.19); PLATELET COUNT (AUTO) 199 K/uL (130-400); RED BLOOD CELL COUNT(AUTO) 4.98 MIL/uL (4.50-6.20); RED CELL DISTRIBUTION WIDTH 13.5 % (11.0-15.5); WHITE BLOOD COUNT (AUTO) 4.6 K/uL (4.8-10.8)
--- NOTE | 2025-04-25 14:36 | EKG ---
[facility] Test Date: 2025-04-25 Test Time: 14:30:04 Pat Name: SHIVAM FARIAS Department: ED Room: Gender: M Anvilsmith: [id number] : 1985 Requested By: LIYAH AVILA Order Number: [id number] Reading MD: Zuhair Rust Measurements Intervals [place] Rate: 92 P: 34 MT: 123 QRS: 77 QRSD: 98 T: 40 QT: 342 QTc: 424 Interpretive Statements Sinus rhythm Compared to ECG 12/07/2024 17:26:24 Myocardial infarct finding now present Sinus tachycardia no longer present Electronically Signed On 04-26-2025 18:18:02 CDT by Zuhair Rust Please click the below link to view image of tracing.
[2025-04-25 14:41] LABS: CREATININE 0.9 mg/dL (0.5-1.3); GLOMERULAR FILTR. RATE CALC 113.0 mL/min (>90); GLUCOSE,RANDOM 106.0 mg/dL (70-105); SODIUM SERUM 134.0 mmol/L (136-145); UREA NITROGEN, BLOOD 16.0 mg/dL (7-18)
[2025-04-25 14:49] LABS: ASPARTATE AMINOTRANSFERASE 15.0 U/L (10-37); TOTAL PROTEIN, SERUM 7.3 g/dL (6.0-8.3)
[2025-04-25] MEDS: 0.9%NACL 1000ML 1,000 ML IV ONE (15:22)
[2025-04-25 15:35] LABS: APPEARANCE,URINE CLEAR (CLEAR); GLUCOSE, URINE (UA) 150 mg/dL (NEGATIVE); LEUKOCYTE ESTERASE ,URINE NEGATIVE Leu/uL (NEGATIVE); NITRATE,URINE NEGATIVE (NEGATIVE); OCCULT BLOOD,URINE NEGATIVE (NEGATIVE)
[2025-04-25 15:44] LABS: ADD UA MICROSCOPIC YES
[2025-04-25 15:52] LABS: SQUAMOUS EPITHELIAL CELL,UR RARE /HPF (0-2)
[2025-04-25] MEDS ORDERED: ONDA-243 PO (16:44)
--- NOTE | 2025-04-25 16:44 | ERN ---
ED Note History of Present Illness Stated Complaint: LIGHTHEADED Chief Complaint: Dizzy/Light Headed Time Seen by MD: 13:37 Dictation: 39-year-old male presenting to the emergency department with nausea and lightheadedness after eating spaghetti. No chest pain no shortness a breath. Patient did not have vomiting but says he felt dizzy lightheaded. Allergies: Coded Allergies: Iodinated Contrast Media (Unverified Allergy, Unknown, 10/09/24) Penicillins (Unverified Allergy, Unknown, 10/09/24) acetaminophen (Unverified Allergy, Unknown, 10/09/24) ceftriaxone (Unverified Allergy, Unknown, 10/09/24) diphenhydramine (Unverified Allergy, Unknown, 04/21/25) Home Meds Active Scripts Ibuprofen (Ibuprofen) 600 Mg Tablet, 600 MG PO Q6H PRN for PAIN, #30 TAB Prov:SARI STROUD NP 04/21/25 Ondansetron (Ondansetron Odt) 4 Mg Tab.rapdis, 4 MG PO TIDP PRN for nausea, #16 TAB 0 Refills Prov:LEOBARDO DELCID PHARMACY TEACHER 04/07/25 Ibuprofen (Ibuprofen) 600 Mg Tablet, 600 MG PO Q6H PRN for PAIN, #30 TAB Prov:SARI STROUD NP 04/06/25 Nitrofurantoin Monohyd/M-Cryst (Macrobid 100 mg Capsule) 100 Mg Capsule, 1 CAP PO BID for 7 Days, #14 CAP 0 Refills Prov:JUAN RAMÍREZ PHARMACY TEACHER 01/29/25 Benzonatate (Tessalon Perles) 100 Mg Cap, 200 MG PO TID for cough, #60 CAP 0 Refills Prov:SARI STROUD NP 01/23/25 Ketorolac Tromethamine (Ketorolac Tromethamine) 10 Mg Tablet, 1 TAB PO TID for pain for 5 Days, #15 TAB 0 Refills Prov:JAGUAR SANCHES 01/02/25 Prednisone (Prednisone) 20 Mg Tablet, 1 TAB PO AD for 6 Days, #14 TAB 0 Refills TAKE 1 TAB BY MOUTH THREE TIMES PER DAY X3 DAYS, THEN TAKE 1 TAB BY MOUTH TWICE A DAY X2 DAYS, THEN TAKE 1 TAB BY MOUTH ONCE A DAY X1 DAY. Prov:ANDRY MUHAMMAD MD 01/02/25 Azithromycin (Azithromycin) 500 Mg Tablet, 1 TAB PO DAILY for 7 Days, #7 TAB 0 Refills Prov:ANDRY MUHAMMAD MD 01/02/25 Fluticasone Propionate (Flonase Nasal [place]) 50 Mcg/Actuation [place], 2 SPRAY NS DAILY for 7 Days, #16 GM 0 Refills Prov:JUAN RAMÍREZ PHARMACY TEACHER 12/21/24 Ondansetron HCl (Zofran) 4 Mg/2 Ml Inj, 4 MG IM BIDAC PRN for ABDOMINAL PAIN for 5 Days, #10 ML Prov:JENNA PNIEDA MD 11/22/24 Cyclobenzaprine HCl (Cyclobenzaprine HCl ER) 15 Mg Cap.er.24h, 1 CAP PO DAILY for 10 Days, #10 CAP 0 Refills Prov:JENNA PINEDA MD 11/22/24 Clotrimazole (Clotrimazole) 1 % Cream..g., 1 APPL TP BID for 7 Days, #30 GM 0 Refills apply to affected area(s) Prov:JAGUAR SANCHES 10/28/24 Past Medical History Past Medical History: Other Additional Past Medical Hx: cerebral palsy Surgical History: Other Surgical History Other: heart sx, lul leg sx Family History: Negative Social History: Negative Review of System Dictation Constitutional: Negative for fever,chills, and weight loss Eyes: Negative for injury, pain,redness, and discharge ENT: Negative for injury,pain or swelling Cardiovascular: Negative for chest pain, palpitations, and edema Respiratory: Negative for shortness of breath, cough, and wheezing, Abdomen/GI: Per HPI : Negative for injury, bleeding and discharge MS/Extremity: Negative for injury and deformity Skin: Negative for rash, and discoloration Neuro: Per HPI Initial Vital Sign VS Vital Signs Date Time Temp Pulse Resp B/P (MAP) Pulse Ox O2 Delivery O2 Flow Rate FiO2 04/25/25 13:34 98.4 95 16 110/63 99 Room Air 0 Physical Exam Dictation General: awake, alert, NAD Head/Face: Normocephalic, atraumatic Eyes: PERRL, EOMI, vision at baseline ENT: oral cavity clear, TMs clear, no signs of infection Neck: Trachea midline, supple, no nuchal rigidity Cardiovascular: RRR, normal S1/S2, No MRGs, no JVD Respiratory: CTAB, no respiratory distress, No rales or wheezes Abdomen: Soft, non-tender, non-distended, normal bowel sounds, no guarding or rebound. Skin: Warm, dry, normal turgor, no rash MS/Extremity: Pulses equal, no cyanosis, neurovascular intact, FROM Neuro: At baseline Results (Laboratory/Radiology) Laboratory/Radiology Laboratory Tests Test 04/25/25 14:24 04/25/25 14:45 White Blood Count 4.6 K/uL (4.8-10.8) L Red Blood Count 4.98 MIL/uL (4.50-6.20) Hemoglobin 14.1 g/dL (14.0-18.0) Hematocrit 41.7 % (42-54) L Mean Corpuscular Volume 83.7 fL (79-99) Mean Corpuscular Hemoglobin 28.3 pg (27.0-33.0) Mean Corpuscular Hemoglobin Concent 33.8 g/dL (32.0-36.0) Red Cell Distribution Width 13.5 % (11.0-15.5) Platelet Count 199 K/uL (130-400) Mean Platelet Volume 11.3 fL (7.5-10.5) H Immature Granulocyte % (Auto) 0.4 % (0-1) Neutrophils (%) (Auto) 53.9 % (40.0-77.0) Lymphocytes (%) (Auto) 31.3 % (21.0-51.0) Monocytes (%) (Auto) 9.8 % (3.0-13.0) Eosinophils (%) (Auto) 3.5 % (0.0-8.0) Basophils (%) (Auto) 1.1 % (0.0-5.0) Neutrophils # (Auto) 2.5 K/uL (1.8-7.7) Lymphocytes # (Auto) 1.4 K/uL (1.0-4.8) Monocytes # (Auto) 0.5 K/uL (0.1-1.0) Eosinophils # (Auto) 0.16 K/uL (0.00-0.70) Basophils # (Auto) 0.05 K/uL (0.00-0.20) Absolute Immature Granulocyte (auto 0.02 K/uL (0-1) Nucleated Red Blood Cells 0.0 % (0.0-0.19) Sodium Level 134 mmol/L (136-145) L Potassium Level 3.8 mmol/L (3.5-5.1) Chloride Level 98 mmol/L (101-111) L Carbon Dioxide Level 32 mmol/L (21-32) Blood Urea Nitrogen 16 mg/dL (7-18) Creatinine 0.9 mg/dL (0.5-1.3) Glomerular Filtration Rate Calc 113 mL/min (>90) Random Glucose 106 mg/dL (70-105) H Total Calcium 8.5 mg/dL (8.5-10.1) Total Bilirubin 1.3 mg/dL (0.2-1.0) H Direct Bilirubin 0.2 mg/dL (0.0-0.3) Aspartate Amino Transf (AST/SGOT) 15 U/L (10-37) Alanine Aminotransferase (ALT/SGPT) 21 U/L (12-78) Alkaline Phosphatase 87 U/L (50-136) Troponin I High Sensitivity < 4 ng/L (4-75) L Total Protein 7.3 g/dL (6.0-8.3) Albumin 3.7 g/dL (3.5-5.0) Urine Color YELLOW (YELLOW) Urine Appearance CLEAR (CLEAR) Urine pH 6.5 (5.0-8.0) Urine Specific [place] 1.027 (1.001-1.031) Urine Protein NEGATIVE mg/dL (NEGATIVE) Urine Glucose (UA) 150 mg/dL (NEGATIVE) H Urine Ketones 5 mg/dL (NEGATIVE) H Urine Occult Blood NEGATIVE (NEGATIVE) Urine Nitrate NEGATIVE (NEGATIVE) Urine Bilirubin NEGATIVE mg/dL (NEGATIVE) Urine Urobilinogen >=8.0 mg/dL (0.2-1.0) H Urine Leukocyte Esterase NEGATIVE [place]/uL Urine RBC 0-1 /HPF (0-1) Urine WBC 2-5 /HPF (0-1) H Urine Squamous Epithelial Cells RARE /HPF (0-2) Urine Bacteria None /HPF (None Seen) Labs Reviewed?: Yes ED Course ED Course Orders Procedure Category Date Status Time 12 Lead Ekg Tracing- EKG 04/25/25 Complete Technical 14:05 Basic Metabolic Panel LAB 04/25/25 Complete 14:05 Cbc With Differential LAB 04/25/25 Complete 14:05 Hepatic Function Panel LAB 04/25/25 Complete 14:05 Troponin I High LAB 04/25/25 Complete Sensitivity 14:05 Ondansetron 4mg Inj PHA 04/25/25 Complete (Zofran 4mg Inj) 14:30 0.9%Nacl 1000ml (Ns PHA 04/25/25 Complete 1000ml) 14:30 Urinalysis Profile LAB 04/25/25 Complete 15:27 Ondansetron Odt 4mg PHA 04/25/25 Transmitted Tab (Zofran 4mg Odt) 17:00 Current Medications Medications (Trade) Dose Ordered Sig/Carmen Route PRN Reason Start Time Stop Time Status Last Admin Dose Admin Ondansetron HCl (zoFRAN 4MG INJ) 4 mg ONCE ONCE IVP 04/25/25 14:30 04/25/25 14:31 DC Sodium Chloride 1,000 ml @ 0 mls/hr ONCE ONCE IV 04/25/25 14:30 04/25/25 14:31 DC Vital Signs Date Time Temp Pulse Resp B/P (MAP) Pulse Ox O2 Delivery O2 Flow Rate FiO2 04/25/25 13:34 98.4 95 16 110/63 99 Room Air 0 Medical Decision Making MDM MDM: Differential diagnosis: Rationale: Tests considered and ordered secondary to shared decision making include: Previous outside records reviewed: Old ER visits. Risk of complication and/or morbidity or mortality of patient management: None Medications-Per medication reconciliation Need for hospitalization: Patient does not meet criteria for hospitalization. Need for emergency major/minor surgery: No There are no social concerns with this patient. Prescription drug management Prescriptions will include symptomatic care Patient's prior external medical records from other ER visits were reviewed by me as indicated. Prior testing and results from previous visits were reviewed. Prior tests were taken into account with medical decision making and resource utilization, independent historian/historians were used to obtain complete medical history. I independently interpreted the test that were performed, results were reviewed by me and considered findings on radiology if ordered. Medical management and examination interpretation discussions were had by me with other qualified healthcare professionals as indicated for the patient's care. 39-year-old with GI symptoms, stable exam vital signs stable negative workup stable for discharge. DX & DISP Disposition: Discharge Departure Impression: Primary Impression: Dizziness Condition: Stable Scripts Ondansetron (Ondansetron Odt) 4 Mg Tab.rapdis 4 MG PO BID for vomiting for 5 Days, #10 TAB Prov: LIYAH AVILA MD 04/25/25 Referrals: KSENIA NIELSENP-BC (PCP) LIYAH AVILA MD Apr 25, 2025 16:44
[2025-04-25 16:48] VITALS: BP 110/62; PULSE 88; RESP 16; TEMP 98.4; O2SAT 99
== END 2025-04-25 16:53 | disposition home or self-care (01) ==
LOC: EDH 13:33
DX: R42 Dizziness and giddiness (principal); Z88.0 Allergy status to penicillin; Z88.1 Allergy status to other antibiotic agents; Z91.041 Radiographic dye allergy status
CPT/HCPCS: 99284; 80076; 84484; 80048; 85025; 81001; 36415; 93005; J7030; J2405

== ENCOUNTER 2025-04-29 19:46 | Emergency (ER) | payer MEDICAID ==
[~2025-04-29] VITALS: Ht 170.2 cm; Wt 68.0 kg
[2025-04-29 20:20] LABS: IMMATURE GRANULOCYTE ABSOLUTE 0.01 K/uL (0-1); NUCLEATED RED BLOOD CELLS 0.0 % (0.0-0.19); PLATELET COUNT (AUTO) 187 K/uL (130-400); RED BLOOD CELL COUNT(AUTO) 5.26 MIL/uL (4.50-6.20); RED CELL DISTRIBUTION WIDTH 13.2 % (11.0-15.5); WHITE BLOOD COUNT (AUTO) 5.7 K/uL (4.8-10.8)
[2025-04-29] MEDS: LACTATED RINGERS 1000ML IV STA (20:20)
--- NOTE | 2025-04-29 20:22 | NUR ---
PT REFUSED IV ZOFRAN AT THIS TIME, PT STATES THAT THE NAUSEA HAS "GONE AWAY." PT ALSO REFUSING IV FLUIDS AT THIS TIME. PT STATES HE WILL WAIT UNTIL THE BLOOD WORK IS BACK TO SEE IF HE "NEEDS THE FLUIDS." PRIMARY NURSE MADE AWARE.
[2025-04-29 20:32] LABS: CREATININE 0.9 mg/dL (0.5-1.3); GLOMERULAR FILTR. RATE CALC 113.0 mL/min (>90); GLUCOSE,RANDOM 102.0 mg/dL (70-105); SODIUM SERUM 136.0 mmol/L (136-145); UREA NITROGEN, BLOOD 19.0 mg/dL (7-18)
[2025-04-29 20:37] LABS: ASPARTATE AMINOTRANSFERASE 17.0 U/L (10-37); CREATINE KINASE, TOTAL 42.0 U/L (21-232); TOTAL PROTEIN, SERUM 7.7 g/dL (6.0-8.3)
--- NOTE | 2025-04-29 20:48 | ERN ---
General Chief Complaint: Lower Extremity Pain/Injury Stated Complaint: LEFT CALF PAIN Time Seen by MD: 19:51 History of Present Illness Initial Comments 39-year-old male with cerebral palsy and paraplegia comes to the emergency room with a left calf cramp for two days. He is concerned as he is wheelchair-bound and he wants to be sure he does not have an injury. Allergies: Coded Allergies: Iodinated Contrast Media (Unverified Allergy, Unknown, 10/09/24) Penicillins (Unverified Allergy, Unknown, 10/09/24) acetaminophen (Unverified Allergy, Unknown, 10/09/24) ceftriaxone (Unverified Allergy, Unknown, 10/09/24) diphenhydramine (Unverified Allergy, Unknown, 04/21/25) Home Meds Active Scripts Ondansetron (Ondansetron Odt) 4 Mg Tab.rapdis, 4 MG PO BID for vomiting for 5 Days, #10 TAB Prov:LIYAH AVILA MD 04/25/25 Ibuprofen (Ibuprofen) 600 Mg Tablet, 600 MG PO Q6H PRN for PAIN, #30 TAB Prov:SARI STROUD NP 04/21/25 Ondansetron (Ondansetron Odt) 4 Mg Tab.rapdis, 4 MG PO TIDP PRN for nausea, #16 TAB 0 Refills Prov:LEOBARDO DELCIDP 04/07/25 Ibuprofen (Ibuprofen) 600 Mg Tablet, 600 MG PO Q6H PRN for PAIN, #30 TAB Prov:SARI STROUD NP 04/06/25 Nitrofurantoin Monohyd/M-Cryst (Macrobid 100 mg Capsule) 100 Mg Capsule, 1 CAP PO BID for 7 Days, #14 CAP 0 Refills Prov:JUAN RAMÍREZP 01/29/25 Benzonatate (Tessalon Perles) 100 Mg Cap, 200 MG PO TID for cough, #60 CAP 0 Refills Prov:SARI STROUD NP 01/23/25 Ketorolac Tromethamine (Ketorolac Tromethamine) 10 Mg Tablet, 1 TAB PO TID for pain for 5 Days, #15 TAB 0 Refills Prov:JAGUAR SANCHES 01/02/25 Prednisone (Prednisone) 20 Mg Tablet, 1 TAB PO AD for 6 Days, #14 TAB 0 Refills TAKE 1 TAB BY MOUTH THREE TIMES PER DAY X3 DAYS, THEN TAKE 1 TAB BY MOUTH TWICE A DAY X2 DAYS, THEN TAKE 1 TAB BY MOUTH ONCE A DAY X1 DAY. Prov:ANDRY MUHAMMAD MD 01/02/25 Azithromycin (Azithromycin) 500 Mg Tablet, 1 TAB PO DAILY for 7 Days, #7 TAB 0 Refills Prov:ANDRY MUHAMMAD MD 01/02/25 Fluticasone Propionate (Flonase Nasal [place]) 50 Mcg/Actuation [place], 2 SPRAY NS DAILY for 7 Days, #16 GM 0 Refills Prov:JUAN RAMÍREZ PHARMACY PICKING TECHNICIAN 12/21/24 Ondansetron HCl (Zofran) 4 Mg/2 Ml Inj, 4 MG IM BIDAC PRN for ABDOMINAL PAIN for 5 Days, #10 ML Prov:JENNA PINEDA MD 11/22/24 Cyclobenzaprine HCl (Cyclobenzaprine HCl ER) 15 Mg Cap.er.24h, 1 CAP PO DAILY for 10 Days, #10 CAP 0 Refills Prov:JENNA PINEDA MD 11/22/24 Clotrimazole (Clotrimazole) 1 % Cream..g., 1 APPL TP BID for 7 Days, #30 GM 0 Refills apply to affected area(s) Prov:JAGUAR SANCHES 10/28/24 Past Medical History Past Medical History: Other Medical History Other: cerebral palsy Past Surgical History: Other Surgical History Other: heart sx, lul leg sx Family History Family History: Negative Social History Social History: Negative ROS Dictation Review of systems is otherwise negative. No fevers or chills. No chest pain no shortness of breath. No change in defecation or urination. He does feel like his extremities are cold. Physical Exam Extremities Comment Patient's left calf is cramped the muscle is tender and in constant tension. Capillary refill to the patient's bilateral lower extremities is delayed. Results Laboratory and Microbiology Lab and Micro Result Laboratory Tests Test 04/29/25 20:03 04/29/25 21:42 White Blood Count 5.7 K/uL (4.8-10.8) Red Blood Count 5.26 MIL/uL (4.50-6.20) Hemoglobin 14.8 g/dL (14.0-18.0) Hematocrit 43.6 % (42-54) Mean Corpuscular Volume 82.9 fL (79-99) Mean Corpuscular Hemoglobin 28.1 pg (27.0-33.0) Mean Corpuscular Hemoglobin Concent 33.9 g/dL (32.0-36.0) Red Cell Distribution Width 13.2 % (11.0-15.5) Platelet Count 187 K/uL (130-400) Mean Platelet Volume 11.4 fL (7.5-10.5) H Immature Granulocyte % (Auto) 0.2 % (0-1) Neutrophils (%) (Auto) 52.2 % (40.0-77.0) Lymphocytes (%) (Auto) 33.0 % (21.0-51.0) Monocytes (%) (Auto) 10.9 % (3.0-13.0) Eosinophils (%) (Auto) 2.8 % (0.0-8.0) Basophils (%) (Auto) 0.9 % (0.0-5.0) Neutrophils # (Auto) 3.0 K/uL (1.8-7.7) Lymphocytes # (Auto) 1.9 K/uL (1.0-4.8) Monocytes # (Auto) 0.6 K/uL (0.1-1.0) Eosinophils # (Auto) 0.16 K/uL (0.00-0.70) Basophils # (Auto) 0.05 K/uL (0.00-0.20) Absolute Immature Granulocyte (auto 0.01 K/uL (0-1) Nucleated Red Blood Cells 0.0 % (0.0-0.19) Sodium Level 136 mmol/L (136-145) Potassium Level 3.5 mmol/L (3.5-5.1) Chloride Level 97 mmol/L (101-111) L Carbon Dioxide Level 33 mmol/L (21-32) H Blood Urea Nitrogen 19 mg/dL (7-18) H Creatinine 0.9 mg/dL (0.5-1.3) Glomerular Filtration Rate Calc 113 mL/min (>90) Random Glucose 102 mg/dL (70-105) Total Calcium 8.7 mg/dL (8.5-10.1) Magnesium Level 2.20 mg/dL (1.80-2.40) Total Bilirubin 1.5 mg/dL (0.2-1.0) H Aspartate Amino Transf (AST/SGOT) 17 U/L (10-37) Alanine Aminotransferase (ALT/SGPT) 21 U/L (12-78) Alkaline Phosphatase 89 U/L (50-136) Total Creatine Kinase 42 U/L (21-232) Total Protein 7.7 g/dL (6.0-8.3) Albumin 3.8 g/dL (3.5-5.0) Urine Color LIGHT-YELLOW (YELLOW) Urine Appearance CLEAR (CLEAR) Urine pH 6.5 (5.0-8.0) Urine Specific [place] 1.021 (1.001-1.031) Urine Protein NEGATIVE mg/dL (NEGATIVE) Urine Glucose (UA) 70 mg/dL (NEGATIVE) H Urine Ketones 20 mg/dL (NEGATIVE) H Urine Occult Blood NEGATIVE (NEGATIVE) Urine Nitrate NEGATIVE (NEGATIVE) Urine Bilirubin NEGATIVE mg/dL (NEGATIVE) Urine Urobilinogen 3 mg/dL (0.2-1.0) H Urine Leukocyte Esterase NEGATIVE [place]/uL Urine RBC 0-1 /HPF (0-1) Urine WBC 0-1 /HPF (0-1) Urine Squamous Epithelial Cells RARE /HPF (0-2) Urine Bacteria None /HPF (None Seen) MDM MDM: Differential diagnosis: Dehydration, electrolyte disorder, hypomagnesemia, muscle cramp, Rationale: Tests considered and ordered secondary to shared decision making include: Previous outside records reviewed: Old ER visits. Risk of complication and/or morbidity or mortality of patient management: None Medications-Per medication reconciliation Need for hospitalization: Patient does meet criteria for hospitalization. Need for emergency major/minor surgery: No There are no social concerns with this patient. Prescription drug management Prescriptions will include symptomatic care Patient's prior external medical records from other ER visits were reviewed by me as indicated. Prior testing and results from previous visits were reviewed. Prior tests were taken into account with medical decision making and resource utilization, independent historian/historians were used to obtain complete medical history. Patient states he feels better after getting a L of fluids. His calf muscle is soft in his no longer tender. Of note she had a high degree of ketones in his urine and his BUN was slightly elevated compared to his baseline. Both are consistent with dehydration. Patient is getting an allergy test soon and did not want any medications on board and so he deferred the muscle relaxants steroids and pain medications. His muscle has relaxed and he does no longer have pain I will discharge him from the emergency room. I independently interpreted the test that were performed, results were reviewed by me and considered findings on radiology if ordered. ED Course Orders Procedure Category Date Status Time Comprehensive LAB 04/29/25 Complete Metabolic Panel 20:09 Cbc With Differential LAB 04/29/25 Complete 20:09 Urinalysis Profile LAB 04/29/25 Complete 20:09 Lactated Ringers PHA 04/29/25 Complete 1000ml (Lactated 20:09 Creatine Kinase, Total LAB 04/29/25 Complete 20:09 Ondansetron 4mg Inj PHA 04/29/25 Complete (Zofran 4mg Inj) 20:30 Magnesium LAB 04/29/25 Complete 20:50 Orphenadrine Citrate PHA 04/29/25 Complete (Norflex) 22:00 Triamcinolone Acet PHA 04/29/25 Complete 40mg/Ml 1ml (Kenalog 22:00 Ketorolac PHA 04/29/25 Complete Tromethamine 30mg/Ml 22:00 Current Medications Medications (Trade) Dose Ordered Sig/Carmen Route PRN Reason Start Time Stop Time Status Last Admin Dose Admin Ketorolac Tromethamine (toRADol) 30 mg ONCE ONCE IVP 04/29/25 22:00 04/29/25 22:01 DC Lactated Ringer's (Lactated Ringers 1000ml) 1,000 ml BOLUS STAT IV 04/29/25 20:09 04/29/25 20:11 DC 04/29/25 20:56 Ondansetron HCl (zoFRAN 4MG INJ) 4 mg ONCE ONCE IVP 04/29/25 20:30 04/29/25 20:31 DC Orphenadrine Citrate (Norflex) 60 mg ONCE ONCE IVP 04/29/25 22:00 04/29/25 22:01 DC Triamcinolone Acetonide (Kenalog 40) 40 mg ONCE ONCE IM 04/29/25 22:00 04/29/25 22:01 DC Vital Signs Date Time Temp Pulse Resp B/P (MAP) Pulse Ox O2 Delivery O2 Flow Rate FiO2 04/29/25 20:13 97.9 84 18 115/75 97 Room Air* 0 21 04/29/25 19:48 97.7 95 20 121/71 98 Room Air DX & DISP Disposition: Discharge Departure Impression: Primary Impression: Leg cramp Additional Impression: Dehydration Condition: Stable Additional Instructions: I think your muscle cramp was secondary to dehydration possibly electrolyte imbalance. The cramp has relieved itself with the fluids. Please stay well hydrated in his hot weather. Drink enough fluids so that your urine is clear at least once a day. Please follow-up with her primary care physician if you continue to have muscle cramps. Referrals: KSENIA NIELSENP-BC (PCP) JENNA PINEDA MD Apr 29, 2025 20:48
[2025-04-29 21:51] LABS: ADD UA MICROSCOPIC YES; APPEARANCE,URINE CLEAR (CLEAR); GLUCOSE, URINE (UA) 70 mg/dL (NEGATIVE); LEUKOCYTE ESTERASE ,URINE NEGATIVE Leu/uL (NEGATIVE); NITRATE,URINE NEGATIVE (NEGATIVE); OCCULT BLOOD,URINE NEGATIVE (NEGATIVE)
[2025-04-29 21:52] LABS: SQUAMOUS EPITHELIAL CELL,UR RARE /HPF (0-2)
[2025-04-29] MEDS: TRIAMCINOLONE ACETONIDE 40 MG/ML 1ML VIAL IM ONE (22:04)
[2025-04-29] MEDS: ORPHENADRINE 60MG/2ML IVP ONE (22:04)
[2025-04-29 22:09] VITALS: BP 100/74; PULSE 81; RESP 17; TEMP 97.8; O2SAT 98
== END 2025-04-29 22:16 | disposition home or self-care (01) ==
LOC: EDH 19:46
DX: R25.2 Cramp and spasm (principal); E86.0 Dehydration; Z88.0 Allergy status to penicillin; Z88.1 Allergy status to other antibiotic agents; Z91.041 Radiographic dye allergy status; Z99.3 Dependence on wheelchair; Z79.899 Other long term (current) drug therapy
CPT/HCPCS: 99284; 96360; 82550; 83735; 80053; 85025; 81001; 36415; J7120; J2405; 99283; J1885; J3301; J2360

== ENCOUNTER 2025-05-01 21:43 | Emergency (ER) | payer MEDICAID ==
[~2025-05-01] VITALS: Ht 170.2 cm; Wt 68.0 kg
--- NOTE | 2025-05-01 22:14 | ERN ---
ED Note History of Present Illness Stated Complaint: C/O CP WITH FAST HEART RATE Chief Complaint: Chest Pain Time Seen by MD: 21:51 Dictation: 39-year-old male with a past medical history of cerebral palsy presented to the ER complaining of chest pain and palpitation started earlier this morning. Family member at bedside stated that is not the 1st time the patient has dose episodes of chest pain associated with the palpitation. Allergies: Coded Allergies: Iodinated Contrast Media (Unverified Allergy, Unknown, 10/09/24) Penicillins (Unverified Allergy, Unknown, 10/09/24) acetaminophen (Unverified Allergy, Unknown, 10/09/24) ceftriaxone (Unverified Allergy, Unknown, 10/09/24) diphenhydramine (Unverified Allergy, Unknown, 04/21/25) Home Meds Active Scripts Ondansetron (Ondansetron Odt) 4 Mg Tab.rapdis, 4 MG PO BID for vomiting for 5 Days, #10 TAB Prov:LIYAH AVILA MD 04/25/25 Ibuprofen (Ibuprofen) 600 Mg Tablet, 600 MG PO Q6H PRN for PAIN, #30 TAB Prov:SARI STROUD NP 04/21/25 Ondansetron (Ondansetron Odt) 4 Mg Tab.rapdis, 4 MG PO TIDP PRN for nausea, #16 TAB 0 Refills Prov:LEOBARDO DELCID VISITOR USE ASSISTANT 04/07/25 Ibuprofen (Ibuprofen) 600 Mg Tablet, 600 MG PO Q6H PRN for PAIN, #30 TAB Prov:SARI STROUD NP 04/06/25 Nitrofurantoin Monohyd/M-Cryst (Macrobid 100 mg Capsule) 100 Mg Capsule, 1 CAP PO BID for 7 Days, #14 CAP 0 Refills Prov:JUAN RAMÍREZP 01/29/25 Benzonatate (Tessalon Perles) 100 Mg Cap, 200 MG PO TID for cough, #60 CAP 0 Refills Prov:SARI STROUD NP 01/23/25 Ketorolac Tromethamine (Ketorolac Tromethamine) 10 Mg Tablet, 1 TAB PO TID for pain for 5 Days, #15 TAB 0 Refills Prov:JAGUAR SANCHES 01/02/25 Prednisone (Prednisone) 20 Mg Tablet, 1 TAB PO AD for 6 Days, #14 TAB 0 Refills TAKE 1 TAB BY MOUTH THREE TIMES PER DAY X3 DAYS, THEN TAKE 1 TAB BY MOUTH TWICE A DAY X2 DAYS, THEN TAKE 1 TAB BY MOUTH ONCE A DAY X1 DAY. Prov:ANDRY MUHAMMAD MD 01/02/25 Azithromycin (Azithromycin) 500 Mg Tablet, 1 TAB PO DAILY for 7 Days, #7 TAB 0 Refills Prov:ANDRY MUHMAMAD MD 01/02/25 Fluticasone Propionate (Flonase Nasal [place]) 50 Mcg/Actuation [place], 2 SPRAY NS DAILY for 7 Days, #16 GM 0 Refills Prov:JUAN RAMÍREZ VISITOR USE ASSISTANT 12/21/24 Ondansetron HCl (Zofran) 4 Mg/2 Ml Inj, 4 MG IM BIDAC PRN for ABDOMINAL PAIN for 5 Days, #10 ML Prov:JENNA PINEDA MD 11/22/24 Cyclobenzaprine HCl (Cyclobenzaprine HCl ER) 15 Mg Cap.er.24h, 1 CAP PO DAILY for 10 Days, #10 CAP 0 Refills Prov:JENNA PINEDA MD 11/22/24 Clotrimazole (Clotrimazole) 1 % Cream..g., 1 APPL TP BID for 7 Days, #30 GM 0 Refills apply to affected area(s) Prov:JAGUAR SANCHES 10/28/24 Past Medical History Past Medical History: Other Additional Past Medical Hx: HX OF CEREBRAL PALSY Surgical History: Other Surgical History Other: heart sx, lul leg sx Family History: Negative Social History: Negative Review of System Dictation NEGATIVE EXCEPT PER HPI Constitutional: Negative for fever,chills, and weight loss Eyes: Negative for injury, pain,redness, and discharge ENT: Negative for injury,pain or swelling Cardiovascular: Chest pain and palpitation reported. Respiratory: Negative for shortness of breath, cough, and wheezing, Abdomen/GI: Negative for abdominal pain, nausea, vomiting, diarrhea, and constipation Back: Negative for injury and pain : Negative for injury, bleeding and discharge MS/Extremity: Negative for injury and deformity Skin: Negative for rash, and discoloration Neuro: Negative for headache, weakness, numbness, tingling, and seizure Psych: Negative for suicide ideation, homicidal ideation, and hallucinations Initial Vital Sign VS Vital Signs Date Time Temp Pulse Resp B/P (MAP) Pulse Ox O2 Delivery O2 Flow Rate FiO2 05/01/25 21:44 98.1 95 20 91/35 98 Room Air Physical Exam Dictation General: awake, alert, NAD Head/Face: Normocephalic, atraumatic Eyes: PERRL, EOMI, vision at baseline ENT: oral cavity clear, TMs clear, no signs of infection Neck: Trachea midline, supple, no nuchal rigidity Cardiovascular: RRR, normal S1/S2, No MRGs, no JVD Respiratory: CTAB, no respiratory distress, No rales or wheezes Abdomen: Soft , no tender Skin: Warm, dry, normal turgor, no rash MS/Extremity: Pulses equal, no cyanosis, neurovascular intact, FROM Neuro: COAx4, GCS 15 Psych: Normal behavior, mood, and affect normal Results (Laboratory/Radiology) Laboratory/Radiology Laboratory Tests Test 05/01/25 22:10 White Blood Count 5.6 K/uL (4.8-10.8) Red Blood Count 5.28 MIL/uL (4.50-6.20) Hemoglobin 15.0 g/dL (14.0-18.0) Hematocrit 43.4 % (42-54) Mean Corpuscular Volume 82.2 fL (79-99) Mean Corpuscular Hemoglobin 28.4 pg (27.0-33.0) Mean Corpuscular Hemoglobin Concent 34.6 g/dL (32.0-36.0) Red Cell Distribution Width 13.5 % (11.0-15.5) Platelet Count 228 K/uL (130-400) Mean Platelet Volume 11.5 fL (7.5-10.5) H Immature Granulocyte % (Auto) 0.2 % (0-1) Neutrophils (%) (Auto) 45.2 % (40.0-77.0) Lymphocytes (%) (Auto) 38.3 % (21.0-51.0) Monocytes (%) (Auto) 10.7 % (3.0-13.0) Eosinophils (%) (Auto) 4.7 % (0.0-8.0) Basophils (%) (Auto) 0.9 % (0.0-5.0) Neutrophils # (Auto) 2.5 K/uL (1.8-7.7) Lymphocytes # (Auto) 2.1 K/uL (1.0-4.8) Monocytes # (Auto) 0.6 K/uL (0.1-1.0) Eosinophils # (Auto) 0.26 K/uL (0.00-0.70) Basophils # (Auto) 0.05 K/uL (0.00-0.20) Absolute Immature Granulocyte (auto 0.01 K/uL (0-1) Nucleated Red Blood Cells 0.0 % (0.0-0.19) Sodium Level 133 mmol/L (136-145) L Potassium Level 3.7 mmol/L (3.5-5.1) Chloride Level 97 mmol/L (101-111) L Carbon Dioxide Level 31 mmol/L (21-32) Blood Urea Nitrogen 19 mg/dL (7-18) H Creatinine 1.0 mg/dL (0.5-1.3) Glomerular Filtration Rate Calc 99 mL/min (>90) Random Glucose 86 mg/dL (70-105) Total Calcium 8.9 mg/dL (8.5-10.1) Troponin I High Sensitivity < 4 ng/L (4-75) L ED Course ED Course Orders Procedure Category Date Status Time 12 Lead Ekg Tracing- EKG 05/01/25 Logged Technical 21:49 Chest 1vw RAD 05/01/25 Taken 21:54 Cbc With Differential LAB 05/01/25 Complete 21:56 Basic Metabolic Panel LAB 05/01/25 Complete 21:56 Troponin I High LAB 05/01/25 Complete Sensitivity 21:56 Vital Signs Date Time Temp Pulse Resp B/P (MAP) Pulse Ox O2 Delivery O2 Flow Rate FiO2 05/01/25 21:44 98.1 95 20 91/35 98 Room Air Medical Decision Making MDM 39-year-old male with a history of remote past who presents to the ER complaining of chest pain palpitation. Chest pain Palpitation Possible dehydration Chest pain labs workup Chest x-ray ordered Cardiac workup was negative, patient is hemodynamically stable. No chest pains moment. Plan is to discharge home with recommended to follow up with the primary care physician in next 24 hours. DX & DISP Disposition: Discharge Departure Impression: Primary Impression: Chest pain, atypical Condition: Stable Additional Instructions: RETURN TO ER FOR ANY ACUTE OR WORSENING SYMPTOMS. FOLLOW-UP IN 1-2 DAYS WITH PRIMARY PROVIDER FOR RECHECK OF TODAY'S SYMPTOMS. Referrals: KSENIA NIELSEN VISITOR USE ASSISTANT-BC (PCP) KRISTIE GAN MD May 01, 2025 22:14
[2025-05-01 22:16] LABS: IMMATURE GRANULOCYTE ABSOLUTE 0.01 K/uL (0-1); NUCLEATED RED BLOOD CELLS 0.0 % (0.0-0.19); PLATELET COUNT (AUTO) 228 K/uL (130-400); RED BLOOD CELL COUNT(AUTO) 5.28 MIL/uL (4.50-6.20); RED CELL DISTRIBUTION WIDTH 13.5 % (11.0-15.5); WHITE BLOOD COUNT (AUTO) 5.6 K/uL (4.8-10.8)
[2025-05-01 22:23] LABS: CREATININE 1.0 mg/dL (0.5-1.3); GLOMERULAR FILTR. RATE CALC 99.0 mL/min (>90); GLUCOSE,RANDOM 86.0 mg/dL (70-105); SODIUM SERUM 133.0 mmol/L (136-145); UREA NITROGEN, BLOOD 19.0 mg/dL (7-18)
[2025-05-01 23:15] VITALS: BP 128/74; PULSE 73; RESP 17; TEMP 98.2; O2SAT 98
--- NOTE | 2025-05-01 23:46 | HMCIMG ---
EXAM: CR Chest, 1 view CLINICAL HISTORY: Chest pain. COMPARISON: Chest radiograph dated 12/07/2024. FINDINGS: The lungs show no infiltrates or other acute findings. No pleural effusion or pneumothorax. The cardiomediastinal silhouette is within normal limits. Surgical clips in the left side of the mediastinum. No acute osseous abnormality. Mildly elevated left hemidiaphragm. IMPRESSION: No acute cardiopulmonary process is evident. Compared to the prior study, there is no significant interval change. /[place]
--- NOTE | 2025-05-02 06:19 | EKG ---
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
== END 2025-05-01 23:42 | disposition home or self-care (01) ==
LOC: EDH 21:43
DX: R07.89 Other chest pain (principal); Z88.0 Allergy status to penicillin; Z88.1 Allergy status to other antibiotic agents; Z91.041 Radiographic dye allergy status; Z79.899 Other long term (current) drug therapy
CPT/HCPCS: 36415; 71045; 80048; 84484; 85025; 93005; 99285

== ENCOUNTER 2025-06-01 22:46 | Emergency (ER) | payer MEDICAID ==
[~2025-06-01] VITALS: Ht 170.2 cm; Wt 68.0 kg
--- NOTE | 2025-06-01 23:56 | NUR ---
REPORT TO LEOBARDO SUBRAMANIAN
--- NOTE | 2025-06-02 00:23 | ERN ---
General Chief Complaint: Multiple Complaints Stated Complaint: CHEST PAIN, COUGH, Time Seen by MD: 23:11 Time Seen by Midlevel: 23:11 Source: patient History of Present Illness Initial Comments 39-year-old male with a past medical history of cerebral palsy presenting to the emergency department after a brief choking episode. Patient states he was eating whataburger around 6:00 p.m. today he felt something went down the wrong "pipe". He was able to cough and feel came out but states after he has been having a mild persistent cough. Allergies: Coded Allergies: Iodinated Contrast Media (Unverified Allergy, Unknown, 10/09/24) Penicillins (Unverified Allergy, Unknown, 10/09/24) acetaminophen (Unverified Allergy, Unknown, 10/09/24) ceftriaxone (Unverified Allergy, Unknown, 10/09/24) diphenhydramine (Unverified Allergy, Unknown, 04/21/25) Home Meds Active Scripts Ondansetron (Ondansetron Odt) 4 Mg Tab.rapdis, 4 MG PO BID for vomiting for 5 Days, #10 TAB Prov:LIYAH AVILA MD 04/25/25 Ibuprofen (Ibuprofen) 600 Mg Tablet, 600 MG PO Q6H PRN for PAIN, #30 TAB Prov:SARI STROUD RESEARCH PHLEBOTOMIST 04/21/25 Ondansetron (Ondansetron Odt) 4 Mg Tab.rapdis, 4 MG PO TIDP PRN for nausea, #16 TAB 0 Refills Prov:LEOBARDO DELCIDP 04/07/25 Ibuprofen (Ibuprofen) 600 Mg Tablet, 600 MG PO Q6H PRN for PAIN, #30 TAB Prov:SARI STROUD RESEARCH PHLEBOTOMIST 04/06/25 Nitrofurantoin Monohyd/M-Cryst (Macrobid 100 mg Capsule) 100 Mg Capsule, 1 CAP PO BID for 7 Days, #14 CAP 0 Refills Prov:JUAN RAMÍREZP 01/29/25 Benzonatate (Tessalon Perles) 100 Mg Cap, 200 MG PO TID for cough, #60 CAP 0 Refills Prov:SARI STROUD RESEARCH PHLEBOTOMIST 01/23/25 Ketorolac Tromethamine (Ketorolac Tromethamine) 10 Mg Tablet, 1 TAB PO TID for p ain for 5 Days, #15 TAB 0 Refills Prov:JAGUAR SANCHES PAC 01/02/25 Prednisone (Prednisone) 20 Mg Tablet, 1 TAB PO AD for 6 Days, #14 TAB 0 Refills TAKE 1 TAB BY MOUTH THREE TIMES PER DAY X3 DAYS, THEN TAKE 1 TAB BY MOUTH TWICE A DAY X2 DAYS, THEN TAKE 1 TAB BY MOUTH ONCE A DAY X1 DAY. Prov:ANDRY MUHAMMAD MD 01/02/25 Azithromycin (Azithromycin) 500 Mg Tablet, 1 TAB PO DAILY for 7 Days, #7 TAB 0 Refills Prov:ANDRY MUHAMMAD MD 01/02/25 Fluticasone Propionate (Flonase Nasal [place]) 50 Mcg/Actuation [place], 2 SPRAY NS DAILY for 7 Days, #16 GM 0 Refills Prov:JUAN RAMÍREZ 12/21/24 Ondansetron HCl (Zofran) 4 Mg/2 Ml Inj, 4 MG IM BIDAC PRN for ABDOMINAL PAIN for 5 Days, #10 ML Prov:JENNA PINEDA MD 11/22/24 Cyclobenzaprine HCl (Cyclobenzaprine HCl ER) 15 Mg Cap.er.24h, 1 CAP PO DAILY for 10 Days, #10 CAP 0 Refills Prov:JENNA PINEDA MD 11/22/24 Clotrimazole (Clotrimazole) 1 % Cream..g., 1 APPL TP BID for 7 Days, #30 GM 0 Refills apply to affected area(s) Prov:JAGUAR SANCHES [facility] 10/28/24 Past Medical History Past Medical History: Other Medical History Other: HX OF CEREBRAL PALSY Past Surgical History: Other Surgical History Other: heart sx, lul leg sx Family History Family History: Negative Social History Social History: Negative ROS Dictation CONSTITUTIONAL: Negative except for HPI HEAD/FACE: Negative except for HPI EENT: Negative except for HPI RESPIRATORY: Negative except for HPI GASTROINTESTINAL/ABDOMINAL: Negative except for HPI GENITOURINARY: Negative except for HPI MUSCULOSKELETAL: Negative except for HPI INTEGUMENTARY: Negative except for HPI NEUROLOGICAL/PSYCH: Negative except for HPI HEMATOLOGIC/LYMPHATIC: Negative except for HPI All Systems Negative, Except as noted above. 13 point review of systems assessed and all negative except for above. Physical Exam Physical Exam Dictation Vital Signs reviewed General Appearance: Alert, oriented x 3, no acute distress, well developed, nourished. Head and Face: non-traumatic. Eyes: PERRL, pink conjunctivas, eyelid no trauma, anterior chamber with arcus senilis. Ears: Pinnas intact and no signs of trauma or erythema ear canals clear and no discharge TM no erythema Nose: No discharge, no bleeding. Oropharynx: Mouth normal, tongue pink, pharynx clear,no erythema, tonsils no exudates, no abscesses noted, mucous membrane moist Neck: Supple, non-tender, no thyromegaly, no masses, no JVD, no bruits Breast:Deferred Chest:No tenderness, no crepitus, no paradoxical movement, no retractions Lungs:Clear, well-ventilated, symmetric, no rales, no wheezing, no rhonchi, no stridor, good breath sounds bilaterally Heart: Regular rate, regular rhythm, no murmur, no gallops Vascular: no peripheral edema, Abdomen: Soft, positive bowel sounds, nondistended, no guarding, nontender, no rebound, no masses no hepatomegaly, no splenomegaly, no Lamar's sign, no hernias. Rectal: Deferred Genital: Deferred Neurological: Normal speech, motor function intact, sensory function intact Musculoskeletal: Neck nontender, full range of motion, back nontender, full range of motion, Extremities: nontender, full range of motion Skin: Color pink, dry, no turgor, no rash, no lacerations, no abrasions, no contusions. Lymphatic: Deferred Results Laboratory and Microbiology Lab and Micro Result Laboratory Tests Test 06/01/25 23:02 Troponin I High Sensitivity < 4 ng/L (4-75) L Labs Reviewed?: Yes MDM MDM: 39-year-old male with a past medical history of cerebral palsy presenting to the emergency department after a brief choking episode. Patient states he was eating whataburger around 6:00 p.m. today he felt something went down the wrong "pipe". He was able to cough and feel came out but states after he has been having a mild persistent cough. On physical examination patient is in no acute respiratory distress. Lung sounds are clear to auscultation bilaterally. A troponin was performed to rule out an acute coronary syndrome. Troponin is negative. EKG does not show any acute ischemic changes. Patient will be discharged home with strict return precautions. Differential diagnosis: Aspiration pneumonia, wellness examination, acute coronary syndrome There are no social concerns with this patient. Prescription drug management Prescriptions will include: None Medical management and examination interpretation discussions were had by me with other qualified healthcare professionals as indicated for the patient's care. ED Course Orders Procedure Category Date Status Time 12 Lead Ekg Tracing- EKG 06/01/25 Logged Technical 22:47 Troponin I High LAB 06/01/25 Complete Sensitivity 22:47 Chest 1vw RAD 06/01/25 Taken 22:47 Vital Signs Date Time Temp Pulse Resp B/P (MAP) Pulse Ox O2 Delivery O2 Flow Rate FiO2 06/01/25 22:47 98.4 97 18 105/52 100 Room Air DX & DISP Disposition: Discharge Departure Impression: Primary Impression: Choking episode Condition: Stable Additional Instructions: Your chest x-ray is clear. Your lung sounds sound clear during my examination. Watch for any signs of fever/chills as this may indicate aspiration pneumonia however I have a low clinical suspicion for this. Referrals: KSENIA NIELSEN-OUSMANE (PCP) I have reviewed the case, and I agree with, Diagnosis and Plan I performed the substantive portion of the visit. I have reviewed and personally made and approve the management plan that is documented in the note by myself or the JOÃO. I acknowledge for responsibility for the patient's management plan. JAGUAR SANCHES PAC Jun 02, 2025 00:23
--- NOTE | 2025-06-02 00:28 | HMCIMG ---
EXAM: CR Chest, 1 view CLINICAL HISTORY: Cough. COMPARISON: None provided. FINDINGS: The lungs show no infiltrates or other acute findings. No pleural effusion or pneumothorax. The cardiomediastinal silhouette is within normal limits. No acute osseous abnormality. Mild dextrocurvature of the thoracic spine. 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 IMPRESSION: No acute cardiopulmonary process is evident. Compared to the prior study, there is no significant interval change. /[place]
[2025-06-02 00:47] VITALS: BP 108/58; PULSE 90; RESP 17; TEMP 97.4; O2SAT 100
--- NOTE | 2025-06-02 03:00 | EKG ---
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
== END 2025-06-02 00:48 | disposition home or self-care (01) ==
LOC: EDH 22:46
DX: R09.89 Other specified symptoms and signs involving the circulatory and respiratory systems (principal); Z88.0 Allergy status to penicillin; Z88.1 Allergy status to other antibiotic agents; Z91.041 Radiographic dye allergy status
CPT/HCPCS: 71045; 84484; 93005; 99285

== ENCOUNTER 2025-06-04 03:30 | Emergency (ER) | payer MEDICAID ==
[~2025-06-04] VITALS: Ht 170.2 cm; Wt 68.0 kg
[2025-06-04 03:32] VITALS: TEMP 96.8
--- NOTE | 2025-06-04 04:16 | ERN ---
ED Note History of Present Illness Stated Complaint: GBW, THIRSTY Chief Complaint: Weakness Time Seen by MD: 03:33 Dictation: This is a 39-year-old male with a known history of cerebral palsy presented to the emergency room with complaints of generalized body weakness and fatigue jose arently he went shopping on 06/03/2025 and felt that he had no energy. He has been feeling unusually thirsty and he was concerned and came into the ER for further evaluation. No nausea vomitings diarrhea hematemesis or melena. No fever chills or rigors. He has frequented emergency room with multiple somatic complaints Temperature 96.8 pulse 77 respirations 16 blood pressure 104/60 with a pulse oximetry of 100% on room air Known history of cerebral palsy Allergies: Coded Allergies: Iodinated Contrast Media (Unverified Allergy, Unknown, 10/09/24) Penicillins (Unverified Allergy, Unknown, 10/09/24) acetaminophen (Unverified Allergy, Unknown, 10/09/24) ceftriaxone (Unverified Allergy, Unknown, 10/09/24) diphenhydramine (Unverified Allergy, Unknown, 04/21/25) Home Meds Active Scripts Ondansetron (Ondansetron Odt) 4 Mg Tab.rapdis, 4 MG PO BID for vomiting for 5 Days, #10 TAB Prov:LIYAH AVILA MD 04/25/25 Ibuprofen (Ibuprofen) 600 Mg Tablet, 600 MG PO Q6H PRN for PAIN, #30 TAB Prov:SARI STROUD CORK TILE FLOOR LAYER 04/21/25 Ondansetron (Ondansetron Odt) 4 Mg Tab.rapdis, 4 MG PO TIDP PRN for nausea, #16 TAB 0 Refills Prov:LEOBARDO DELCID [employer]OR LAYER 04/07/25 Ibuprofen (Ibuprofen) 600 Mg Tablet, 600 MG PO Q6H PRN for PAIN, #30 TAB Prov:SARI STROUD [employer]OR L[employer]ER 04/06/25 Nitrofurantoin Monohyd/M-Cryst (Macrobid 100 mg Capsule) 100 Mg Capsule, 1 CAP PO BID for 7 Days, #14 CAP 0 Refills Prov:JUAN RAMÍREZ [employer] 01/29/25 Benzonatate (Tessalon Perles) 100 Mg Cap, 200 MG PO TID for cough, #60 CAP 0 Refills Prov:LUANNESARI Enrico [employer]LOOR LAYER 01/23/25 Ketorolac Tromethamine (Ketorolac Tromethamine) 10 Mg Tablet, 1 TAB PO TID for pain for 5 Days, #15 TAB 0 Refills Prov:JAGUAR SANCHES [facility] 01/02/25 Prednisone (Prednisone) 20 Mg Tablet, 1 TAB PO AD for 6 Days, #14 TAB 0 Refills TAKE 1 TAB BY MOUTH THREE TIMES PER DAY X3 DAYS, THEN TAKE 1 TAB BY MOUTH TWICE A DAY X2 DAYS, THEN TAKE 1 TAB BY MOUTH ONCE A DAY X1 DAY. Prov:ANDRY MUHAMMAD MD 01/02/25 Azithromycin (Azithromycin) 500 Mg Tablet, 1 TAB PO DAILY for 7 Days, #7 TAB 0 Refills Prov:ANDRY MUHAMMAD MD 01/02/25 Fluticasone Propionate (Flonase Nasal [place]) 50 Mcg/Actuation [place], 2 SPRAY NS DAILY for 7 Days, #16 GM 0 Refills Prov:JUAN RAMÍREZ [employer] 12/21/24 Ondansetron HCl (Zofran) 4 Mg/2 Ml Inj, 4 MG IM BIDAC PRN for ABDOMINAL PAIN for 5 Days, #10 ML Prov:JENNA PINEDA MD 11/22/24 Cyclobenzaprine HCl (Cyclobenzaprine HCl ER) 15 Mg Cap.er.24h, 1 CAP PO DAILY for 10 Days, #10 CAP 0 Refills Prov:JENNA PINEDA MD 11/22/24 Clotrimazole (Clotrimazole) 1 % Cream..g., 1 APPL TP BID for 7 Days, #30 GM 0 Refills apply to affected area(s) Prov:JAGUAR SANCHES [facility] 10/28/24 Past Medical History Past Medical History: Other Additional Past Medical Hx: HX OF CEREBRAL PALSY Surgical History: Other Surgical History Other: heart sx, lul leg sx Family History: Negative Social History: Negative RN Note Reviewed/Agreed w/PFSH: Yes Review of System Dictation Constitutional: Negative for fever,chills, and weight loss generalized weakness Eyes: Negative for injury, pain,redness, and discharge ENT: Negative for injury,pain or swelling Cardiovascular: Negative for chest pain, palpitations, and edema Respiratory: Negative for shortness of breath, cough, and wheezing, Abdomen/GI: Negative for abdominal pain, nausea, vomiting, diarrhea, and consti pation Back: Negative for injury and pain : Negative for injury, bleeding and discharge MS/Extremity: Negative for injury and deformity Skin: Negative for rash, and discoloration Neuro: Negative for headache, weakness, numbness, tingling, and seizure Psych: Negative for suicide ideation, homicidal ideation, and hallucinations Initial Vital Sign VS Vital Signs Date Time Temp Pulse Resp B/P (MAP) Pulse Ox O2 Delivery O2 Flow Rate FiO2 06/04/25 03:32 96.8 77 16 104/60 100 Room Air 06/04/25 05:19 0 21 Physical Exam Dictation General: awake, alert, NAD 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 Skin: Warm, dry, normal turgor, no rash MS/Extremity: Pulses equal, no cyanosis, neurovascular intact, FROM Neuro: COAx4, GCS 15, strength 5/5, CN 2-12 intact, normal cerebellar exam, normal gait, Psych: Normal behavior, mood, and affect normal Extremities-trace edema without any palpable cords, Homans sign is negative Results (Laboratory/Radiology) Laboratory/Radiology Laboratory Tests Test 06/04/25 04:32 06/04/25 04:56 White Blood Count 5.3 K/uL (4.8-10.8) Red Blood Count 4.88 MIL/uL (4.50-6.20) Hemoglobin 14.1 g/dL (14.0-18.0) Hematocrit 41.4 % (42-54) L Mean Corpuscular Volume 84.8 fL (79-99) Mean Corpuscular Hemoglobin 28.9 pg (27.0-33.0) Mean Corpuscular Hemoglobin Concent 34.1 g/dL (32.0-36.0) Red Cell Distribution Width 13.5 % (11.0-15.5) Platelet Count 168 K/uL (130-400) Mean Platelet Volume 12.1 fL (7.5-10.5) H Immature Granulocyte % (Auto) 0.4 % (0-1) Neutrophils (%) (Auto) 43.8 % (40.0-77.0) Lymphocytes (%) (Auto) 42.0 % (21.0-51.0) Monocytes (%) (Auto) 10.4 % (3.0-13.0) Eosinophils (%) (Auto) 2.8 % (0.0-8.0) Basophils (%) (Auto) 0.6 % (0.0-5.0) Neutrophils # (Auto) 2.3 K/uL (1.8-7.7) Lymphocytes # (Auto) 2.2 K/uL (1.0-4.8) Monocytes # (Auto) 0.6 K/uL (0.1-1.0) Eosinophils # (Auto) 0.15 K/uL (0.00-0.70) Basophils # (Auto) 0.03 K/uL (0.00-0.20) Absolute Immature Granulocyte (auto 0.02 K/uL (0-1) Nucleated Red Blood Cells 0.0 % (0.0-0.19) Sodium Level 138 mmol/L (136-145) Potassium Level 4.7 mmol/L (3.5-5.1) Chloride Level 102 mmol/L (101-111) Carbon Dioxide Level 28 mmol/L (21-32) Blood Urea Nitrogen 22 mg/dL (7-18) H Creatinine 0.8 mg/dL (0.5-1.3) Glomerular Filtration Rate Calc 117 mL/min (>90) Random Glucose 89 mg/dL (70-105) Total Calcium 8.7 mg/dL (8.5-10.1) Urine Opiates Screen NEGATIVE (NEGATIVE) Urine Barbiturates Screen NEGATIVE (NEGATIVE) Urine Phencyclidine Screen NEGATIVE (NEGATIVE) Urine Amphetamines Screen NEGATIVE (NEGATIVE) Urine Benzodiazepines Screen NEGATIVE (NEGATIVE) Urine Cocaine Screen NEGATIVE (NEGATIVE) Urine Marijuana (THC) Screen NEGATIVE (NEGATIVE) Labs Reviewed?: Yes ED Course ED Course Orders Procedure Category Date Status Time Cbc With Differential LAB 06/04/25 Complete 03:51 Basic Metabolic Panel LAB 06/04/25 Complete 03:51 0.9%Nacl 1000ml (Ns PHA 06/04/25 Complete 1000ml) 04:00 Drug Screen Urine LAB 06/04/25 Complete 03:51 Current Medications Medications (Trade) Dose Ordered Sig/Carmen Route PRN Reason Start Time Stop Time Status Last Admin Dose Admin Sodium Chloride 1,000 ml @ 0 mls/hr ONCE ONCE IV 06/04/25 04:00 06/04/25 04:01 DC 06/04/25 04:49 Vital Signs Date Time Temp Pulse Resp B/P (MAP) Pulse Ox O2 Delivery O2 Flow Rate FiO2 06/04/25 05:19 90 18 108/68 99 Room Air* 0 21 06/04/25 03:32 96.8 77 16 104/60 100 Room Air Medical Decision Making MDM Differential diagnosis: Dehydration, electrolyte abnormalities, heat exhaustion, diabetes mellitus, low-grade infection, viral syndrome This is a 39-year-old male with a known history of cerebral palsy presented to the emergency room with complaints of generalized body weakness and fatigue apparently he went shopping on 06/03/2025 and felt that he had no energy. He has been feeling unusually thirsty and he was concerned and came into the ER for further evaluation. No nausea vomitings diarrhea hematemesis or melena. No fever chills or rigors. He has frequented emergency room with multiple somatic complaints Temperature 96.8 pulse 77 respirations 16 blood pressure 104/60 with a pulse oximetry of 100% on room air Known history of cerebral palsy 5:11 a.m. labs reviewed CBC with a normal limits BNP 7 is normal urinalysis is unremarkable. 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 Rationale: Tests considered and ordered secondary to shared decision making include: CBC BMP UA Previous outside records reviewed: Old ER visits. Risk of complication and/or morbidity or mortality of patient management: None Medications-Per medication reconciliation Need for hospitalization: Patient does not meet criteria for hospitalization. Need for emergency major/minor surgery: No There are no social concerns with this patient. Prescription drug management Prescriptions will include symptomatic care Patient's prior external medical records from other ER visits were reviewed by me as indicated. Prior testing and results from previous visits were reviewed. Prior tests were taken into account with medical decision making and resource utilization, independent historian/historians were used to obtain complete medical history. I independently interpreted the test that were performed, results were reviewed by me and considered findings on radiology if ordered. Medical management and examination interpretation discussions were had by me with other qualified healthcare professionals as indicated for the patient's care. Problem List Problem List: (1) Weakness generalized (2) History of cerebral palsy DX & DISP Disposition: Discharge Departure Impression: Primary Impression: Weakness generalized Additional Impression: History of cerebral palsy Condition: Stable Additional Instructions: Patient and the caregiver have been informed of all the diagnostic tests and the imaging conducted during the today's visit to the emergency room and has verbalized understanding of the results I have personally reviewed and interpreted all diagnostic exams performed here in the ER today as well as the vital signs documented by the nursing staff. The patient is now being discharged to home and should follow up with the primary care physician or the specialist as directed by the ER staff. Patient needs to follow up with his primary care physician and get evaluated for vitamin B12, folate , vitamin-D levels, TSH and also considers sleep study due to craniofacial abnormalities from his cerebral palsy Referrals: KSENIA NIELSENP-BC (PCP) ANDRY MUHAMMAD MD Jun 04, 2025 04:16
[2025-06-04] MEDS: 0.9%NACL 1000ML 1,000 ML IV ONE (04:49)
[2025-06-04 04:54] LABS: IMMATURE GRANULOCYTE ABSOLUTE 0.02 K/uL (0-1); NUCLEATED RED BLOOD CELLS 0.0 % (0.0-0.19); PLATELET COUNT (AUTO) 168 K/uL (130-400); RED BLOOD CELL COUNT(AUTO) 4.88 MIL/uL (4.50-6.20); RED CELL DISTRIBUTION WIDTH 13.5 % (11.0-15.5); WHITE BLOOD COUNT (AUTO) 5.3 K/uL (4.8-10.8)
[2025-06-04 05:13] LABS: CREATININE 0.8 mg/dL (0.5-1.3); GLOMERULAR FILTR. RATE CALC 117.0 mL/min (>90); GLUCOSE,RANDOM 89.0 mg/dL (70-105); SODIUM SERUM 138.0 mmol/L (136-145); UREA NITROGEN, BLOOD 22.0 mg/dL (7-18)
[2025-06-04 05:19] VITALS: BP 108/68; PULSE 90; RESP 18; O2SAT 99
[2025-06-04 05:24] LABS: AMPHET/METH SCREEN,URINE NEGATIVE (NEGATIVE); BARBITURATE SCREEN, URINE NEGATIVE (NEGATIVE); CANNABINOID SCREEN,URINE NEGATIVE (NEGATIVE); COCAINE SCREEN,URINE NEGATIVE (NEGATIVE)
== END 2025-06-04 06:07 | disposition home or self-care (01) ==
LOC: EDH 03:30
DX: R53.1 Weakness (principal); G80.9 Cerebral palsy, unspecified; Z79.899 Other long term (current) drug therapy; Z88.0 Allergy status to penicillin; Z88.1 Allergy status to other antibiotic agents; Z91.041 Radiographic dye allergy status
CPT/HCPCS: 99283; 80048; 80305; 85025; 36415; J7030

== ENCOUNTER 2025-06-15 20:53 | Emergency (ER) | payer MEDICAID ==
[~2025-06-15] VITALS: Ht 170.2 cm; Wt 68.0 kg
--- NOTE | 2025-06-15 21:29 | ERN ---
ED Note History of Present Illness Stated Complaint: CHOKING. CLEARED FOOD ON OWN Chief Complaint: Choking Time Seen by MD: 20:56 Time Seen by Midlevel: 20:56 Dictation: The patient is a 39-year-old male with a history of cerebral palsy who presents to the emergency department with choking episode prior to arrival. Patient reports he was eating water burger and the chicken was very dry causing him to feel like he was choking on the chicken. Patient reports that he coughed up and he was able to clear his throat. Allergies: Coded Allergies: Iodinated Contrast Media (Unverified Allergy, Unknown, 10/09/24) Penicillins (Unverified Allergy, Unknown, 10/09/24) acetaminophen (Unverified Allergy, Unknown, 10/09/24) ceftriaxone (Unverified Allergy, Unknown, 10/09/24) diphenhydramine (Unverified Allergy, Unknown, 04/21/25) Home Meds Active Scripts Ondansetron (Ondansetron Odt) 4 Mg Tab.rapdis, 4 MG PO BID for vomiting for 5 Days, #10 TAB Prov:LIYAH AVILA MD 04/25/25 Ibuprofen (Ibuprofen) 600 Mg Tablet, 600 MG PO Q6H PRN for PAIN, #30 TAB Prov:SARI STROUD HEATING REPAIR TECHNICIAN 04/21/25 Ondansetron (Ondansetron Odt) 4 Mg Tab.rapdis, 4 MG PO TIDP PRN for nausea, #16 TAB 0 Refills Prov:LEOBARDO DELCIDP 04/07/25 Ibuprofen (Ibuprofen) 600 Mg Tablet, 600 MG PO Q6H PRN for PAIN, #30 TAB Prov:SARI STROUD HEATING REPAIR TECHNICIAN 04/06/25 Nitrofurantoin Monohyd/M-Cryst (Macrobid 100 mg Capsule) 100 Mg Capsule, 1 CAP PO BID for 7 Days, #14 CAP 0 Refills Prov:JUAN RAMÍREZP 01/29/25 Benzonatate (Tessalon Perles) 100 Mg Cap, 200 MG PO TID for cough, #60 CAP 0 Refills Prov:SARI STROUDP 01/23/25 Ketorolac Tromethamine (Ketorolac Tromethamine) 10 Mg Tablet, 1 TAB PO TID for pain for 5 Days, #15 TAB 0 Refills Prov:JAGUAR SANCHES PAC 01/02/25 Prednisone (Prednisone) 20 Mg Tablet, 1 TAB PO AD for 6 Days, #14 TAB 0 Refills TAKE 1 TAB BY MOUTH THREE TIMES PER DAY X3 DAYS, THEN TAKE 1 TAB BY MOUTH TWICE A DAY X2 DAYS, THEN TAKE 1 TAB BY MOUTH ONCE A DAY X1 DAY. Prov:ANDRY MUHAMMAD MD 01/02/25 Azithromycin (Azithromycin) 500 Mg Tablet, 1 TAB PO DAILY for 7 Days, #7 TAB 0 Refills Prov:ANDRY MUHAMMAD MD 01/02/25 Fluticasone Propionate (Flonase Nasal [place]) 50 Mcg/Actuation [place], 2 SPRAY NS DAILY for 7 Days, #16 GM 0 Refills Prov:JUAN RAMÍREZ 12/21/24 Ondansetron HCl (Zofran) 4 Mg/2 Ml Inj, 4 MG IM BIDAC PRN for ABDOMINAL PAIN for 5 Days, #10 ML Prov:JENNA PINEDA MD 11/22/24 Cyclobenzaprine HCl (Cyclobenzaprine HCl ER) 15 Mg Cap.er.24h, 1 CAP PO DAILY for 10 Days, #10 CAP 0 Refills Prov:JENNA PINEDA MD 11/22/24 Clotrimazole (Clotrimazole) 1 % Cream..g., 1 APPL TP BID for 7 Days, #30 GM 0 Refills apply to affected area(s) Prov:JAGUAR SANCHES [facility] 10/28/24 Past Medical History Past Medical History: Other Additional Past Medical Hx: HX OF CEREBRAL PALSY Surgical History: Other Surgical History Other: heart sx, lul leg sx Family History: Negative Social History: Negative RN Note Reviewed/Agreed w/PFSH: Yes Review of System Dictation Constitutional: Negative for fever,chills, and weight loss Eyes: Negative for injury, pain,redness, and discharge ENT: Negative for injury,pain or swelling Cardiovascular: Negative for chest pain, palpitations, and edema Respiratory: Negative for shortness of breath, cough, and wheezing, Abdomen/GI: Negative for abdominal pain, nausea, vomiting, diarrhea, and constipation Back: Negative for injury and pain : Negative for injury, bleeding and discharge MS/Extremity: Negative for injury and deformity Skin: Negative for rash, and discoloration Neuro: Negative for headache, weakness, numbness, tingling, and seizure Psych: Negative for suicide ideation, homicidal ideation, and hallucinations Initial Vital Sign VS Vital Signs Date Time Temp Pulse Resp B/P (MAP) Pulse Ox O2 Delivery O2 Flow Rate FiO2 06/15/25 20:55 98.1 87 18 126/47 99 Room Air 06/15/25 22:08 0 21 Physical Exam Dictation Vital Signs reviewed General Appearance: Alert, oriented x 3, no acute distress, well developed, nourished. Head and Face: non-traumatic. Eyes: PERRL, pink conjunctivas, eyelid no trauma, anterior chamber with arcus senilis. Ears: Pinnas intact and no signs of trauma or erythema ear canals clear and no discharge TM no erythema Nose: No discharge, no bleeding. Oropharynx: Mouth normal, tongue pink. pharynx clear,no erythema, tonsils no exudates, no abscesses noted, mucous membrane moist Neck: Supple, non-tender, no thyromegaly, no masses, no JVD, no bruits Breast:Deferred Chest:No tenderness, no crepitus, no paradoxical movement, no retractions Lungs:Clear, well-ventilated, symmetric, no rales, no wheezing, no rhonchi, no stridor, good breath sounds bilaterally Heart: Regular rate, regular rhythm, no murmur, no gallops Vascular: no peripheral edema, Abdomen: Soft, positive bowel sounds, nondistended, no guarding, nontender, no rebound, no masses no hepatomegaly, no splenomegaly, no Lamar's sign, no hernias. Rectal: Deferred Genital: Deferred Neurological: Normal speech, sensory function intact Musculoskeletal: Neck nontender, full range of motion, back nontender, full range of motion, Extremities: nontender, Skin: Color pink, dry, no turgor, no rash, no lacerations, no abrasions, no contusions. Lymphatic: Deferred Results (Laboratory/Radiology) Labs Reviewed?: Yes ED Course ED Course Orders Procedure Category Date Status Time Chest 1vw RAD 06/15/25 Taken 20:55 Vital Signs Date Time Temp Pulse Resp B/P (MAP) Pulse Ox O2 Delivery O2 Flow Rate FiO2 06/15/25 22:08 98.1 82 18 129/57 99 Room Air* 0 21 10/24/25 20:55 98.1 87 18 126/47 99 Room Air Medical Decision Making MDM The patient is a 39-year-old male with a history of cerebral palsy who presents to the emergency department with choking episode prior to arrival. Patient reports he was eating water burger and the chicken was very dry causing him to feel like he was choking on the chicken. Patient reports that he coughed up and he was able to clear his throat. No obvious infiltrates or foreign body seen on x-ray. Patient continues in no acute distress, nontoxic appearance, stable vital signs. Patient will be discharged to follow up with PCP. Differential diagnosis: Choking episode, foreign body, aspiration pneumonia Need for hospitalization: Patient does not meet criteria for hospitalization. There are no social concerns with this patient. DX & DISP Disposition: Discharge Departure Impression: Primary Impression: Choking episode Condition: Stable Additional Instructions: FOLLOW-UP WITH PRIMARY CARE PROVIDER IN 1 TO 2 DAYS. TAKE MEDICATIONS DIRECTED HERE IN THE EMERGENCY ROOM. OKAY TO CONTINUE HOME MEDICATIONS UNLESS OTHERWISE DISCUSSED DURING YOUR VISIT IN THE EMERGENCY ROOM TODAY. RETURN TO YOUR NEAREST EMERGENCY ROOM IF SYMPTOMS WORSEN OR IF THERE IS NO IMPROVEMENT. CALL 911 IF YOU NEED IMMEDIATE ASSISTANCE. TAKE TYLENOL [id number] NEEDED AND IF NO CONTRAINDICATIONS ARE PRESENT. INCREASE ORAL HYDRATION. A WOUND CULTURE OR URINE CULTURE WAS ORDERED HERE IN THE EMERGENCY ROOM DEPARTMENT PLEASE FOLLOW-UP WITH PRIMARY CARE PROVIDER AND ADVISE THEM TO GET REPEAT PORTS FROM OUR FACILITY. IF YOU HAD ANY EHSAN WRAP/SPLINTS THAT WERE APPLIED HERE, PLEASE DO NOT REMOVE THEM UNTIL YOU SEE YOUR PRIMARY CARE OR SPECIALTY. Referrals: KSENIA NIELSEN-OUSMANE (PCP) Time of Disposition: 22:47 I have reviewed the case, and I agree with, Diagnosis and Plan JUAN RAMÍREZ Jun 15, 2025 21:29
[2025-06-15 22:08] VITALS: BP 129/57; PULSE 82; RESP 18; TEMP 98.1; O2SAT 99
--- NOTE | 2025-06-16 00:58 | HMCIMG ---
EXAM: CR Chest, 1 view CLINICAL HISTORY: Choking. COMPARISON: Chest radiograph dated 06/01/2025. FINDINGS: The lungs show no infiltrates or other acute findings. No pleural effusion or pneumothorax. The cardiomediastinal silhouette is within normal limits. No acute osseous abnormality. Mild levocurvature of the thoracolumbar spine. No radiopaque foreign body is evident. IMPRESSION: No radiopaque foreign body is evident. No acute cardiopulmonary process is evident. Compared to the prior study, there is no significant interval change. /[place]
== END 2025-06-15 22:50 | disposition home or self-care (01) ==
LOC: EDH 20:53
DX: Z88.0 Allergy status to penicillin (principal); R09.89 Other specified symptoms and signs involving the circulatory and respiratory systems; Z88.1 Allergy status to other antibiotic agents; Z91.041 Radiographic dye allergy status; Z88.6 Allergy status to analgesic agent; Z88.8 Allergy status to other drugs, medicaments and biological substances; Z79.899 Other long term (current) drug therapy
CPT/HCPCS: 71045; 99283

== ENCOUNTER 2025-06-17 21:59 | Emergency (ER) | payer MEDICAID ==
[~2025-06-17] VITALS: Ht 170.2 cm; Wt 68.0 kg
--- NOTE | 2025-06-17 22:43 | HMCIMG ---
CT HEAD WITHOUT IV CONTRAST Clinical Details: Patient presents with left facial numbness onset at 1500 today and frontal to top parietal headache. Technique: Axial computed tomography images of the head/brain were acquired without intravenous contrast. Findings: Comparison is made with the exam dated March 21, 2025. Brain: There is no evidence of acute hemorrhage. No mass lesion is identified. No CT evidence of acute territorial infarct is seen. There is no midline shift or extra-axial collections. These findings are unchanged from the prior examination dated March 21, 2025. Ventricles: The ventricular system is normal in size and configuration with no hydrocephalus. This is stable compared to the prior study. Orbits: The orbits appear normal without abnormality. No change compared to prior imaging. Sinuses and Mastoids: The paranasal sinuses and mastoid air cells are well aerated and clear. No interval change is observed. Bones: No skull fracture or other bony abnormality is detected. This is unchanged from the prior exam. Soft Tissues: The soft tissues of the head and neck are normal. No abnormality is seen. Impression: * No acute intracranial abnormality identified. These findings are unchanged compared to the CT head examination dated March 21, 2025. /[place]
[2025-06-17 23:27] LABS: IMMATURE GRANULOCYTE ABSOLUTE 0.01 K/uL (0-1); NUCLEATED RED BLOOD CELLS 0.0 % (0.0-0.19); PLATELET COUNT (AUTO) 210 K/uL (130-400); RED BLOOD CELL COUNT(AUTO) 4.77 MIL/uL (4.50-6.20); RED CELL DISTRIBUTION WIDTH 13.7 % (11.0-15.5); WHITE BLOOD COUNT (AUTO) 6.1 K/uL (4.8-10.8)
--- NOTE | 2025-06-18 00:52 | ERN ---
General Chief Complaint: Multiple Complaints Stated Complaint: HEADACHE,LEFT FACIAL NUMBNESS Time Seen by MD: 22:05 Time Seen by Midlevel: 22:05 Source: patient History of Present Illness Initial Comments Patient is a 39-year-old male presenting to the emergency department for evaluation of a right-sided headache and perioral numbness that started prior to arrival. Denies any other symptoms Allergies: Coded Allergies: Iodinated Contrast Media (Unverified Allergy, Unknown, 10/09/24) Penicillins (Unverified Allergy, Unknown, 10/09/24) acetaminophen (Unverified Allergy, Unknown, 10/09/24) ceftriaxone (Unverified Allergy, Unknown, 10/09/24) diphenhydramine (Unverified Allergy, Unknown, 04/21/25) Home Meds Active Scripts Ondansetron (Ondansetron Odt) 4 Mg Tab.rapdis, 4 MG PO BID for vomiting for 5 Days, #10 TAB Prov:LIYAH AVILA MD 04/25/25 Ibuprofen (Ibuprofen) 600 Mg Tablet, 600 MG PO Q6H PRN for PAIN, #30 TAB Prov:SARI STROUD WASTEWATER TREATMENT OPERATOR 04/21/25 Ondansetron (Ondansetron Odt) 4 Mg Tab.rapdis, 4 MG PO TIDP PRN for nausea, #16 TAB 0 Refills Prov:LEOBARDO DELCID WASTEWATER TREATMENT OPERATOR 04/07/25 Ibuprofen (Ibuprofen) 600 Mg Tablet, 600 MG PO Q6H PRN for PAIN, #30 TAB Prov:SARI STROUD WASTEWATER TREATMENT OPERATOR 04/06/25 Nitrofurantoin Monohyd/M-Cryst (Macrobid 100 mg Capsule) 100 Mg Capsule, 1 CAP PO BID for 7 Days, #14 CAP 0 Refills Prov:JUAN RAMÍREZ WASTEWATER TREATMENT OPERATOR 01/29/25 Benzonatate (Tessalon Perles) 100 Mg Cap, 200 MG PO TID for cough, #60 CAP 0 Refills Prov:SARI STROUD WASTEWATER TREATMENT OPERATOR 01/23/25 Ketorolac Tromethamine (Ketorolac Tromethamine) 10 Mg Tablet, 1 TAB PO TID for pain for 5 Days, #15 TAB 0 Refills Prov:JAGUAR SANCHES PAC 01/02/25 Prednisone (Prednisone) 20 Mg Tablet, 1 TAB PO AD for 6 Days, #14 TAB 0 Refills TAKE 1 TAB BY MOUTH THREE TIMES PER DAY X3 DAYS, THEN TAKE 1 TAB BY MOUTH TWICE A DAY X2 DAYS, THEN TAKE 1 TAB BY MOUTH ONCE A DAY X1 DAY. Prov:ANDRY MUHAMMAD MD 01/02/25 Azithromycin (Azithromycin) 500 Mg Tablet, 1 TAB PO DAILY for 7 Days, #7 TAB 0 Refills Prov:ANDRY MUHAMMAD MD 01/02/25 Fluticasone Propionate (Flonase Nasal [place]) 50 Mcg/Actuation [place], 2 SPRAY NS DAILY for 7 Days, #16 GM 0 Refills Prov:JUAN RAMÍREZ WASTEWATER TREATMENT OPERATOR 12/21/24 Ondansetron HCl (Zofran) 4 Mg/2 Ml Inj, 4 MG IM BIDAC PRN for ABDOMINAL PAIN for 5 Days, #10 ML Prov:JENNA PINEDA MD 11/22/24 Cyclobenzaprine HCl (Cyclobenzaprine HCl ER) 15 Mg Cap.er.24h, 1 CAP PO DAILY for 10 Days, #10 CAP 0 Refills Prov:JENNA PINEDA MD 11/22/24 Clotrimazole (Clotrimazole) 1 % Cream..g., 1 APPL TP BID for 7 Days, #30 GM 0 Refills apply to affected area(s) Prov:JAGUAR SANCHES PAC 10/28/24 Past Medical History Past Medical History: Other Medical History Other: HX OF CEREBRAL PALSY Past Surgical History: Other Surgical History Other: heart sx, lul leg sx Family History Family History: Negative Social History Social History: Negative ROS Dictation CONSTITUTIONAL: Negative except for HPI HEAD/FACE: Negative except for HPI EENT: Negative except for HPI RESPIRATORY: Negative except for HPI GASTROINTESTINAL/ABDOMINAL: Negative except for HPI GENITOURINARY: Negative except for HPI MUSCULOSKELETAL: Negative except for HPI INTEGUMENTARY: Negative except for HPI NEUROLOGICAL/PSYCH: Negative except for HPI HEMATOLOGIC/LYMPHATIC: Negative except for HPI All Systems Negative, Except as noted above. 13 point review of systems assessed and all negative except for above. Physical Exam Physical Exam Dictation Vital Signs reviewed General Appearance: Alert, oriented x 3, no acute distress, well developed, nourished. Head and Face: non-traumatic. Eyes: PERRL, pink conjunctivas, eyelid no trauma, anterior chamber with arcus senilis. Ears: Pinnas intact and no signs of trauma or erythema ear canals clear and no discharge TM no erythema Nose: No discharge, no bleeding. Oropharynx: Mouth normal, tongue pink, pharynx clear,no erythema, tonsils no exudates, no abscesses noted, mucous membrane moist Neck: Supple, non-tender, no thyromegaly, no masses, no JVD, no bruits Breast:Deferred Chest:No tenderness, no crepitus, no paradoxical movement, no retractions Lungs:Clear, well-ventilated, symmetric, no rales, no wheezing, no rhonchi, no stridor, good breath sounds bilaterally Heart: Regular rate, regular rhythm, no murmur, no gallops Vascular: no peripheral edema, Abdomen: Soft, positive bowel sounds, nondistended, no guarding, nontender, no rebound, no masses no hepatomegaly, no splenomegaly, no Lamar's sign, no hernias. Rectal: Deferred Genital: Deferred Neurological: Normal speech, motor function intact, sensory function intact Musculoskeletal: Neck nontender, full range of motion, back nontender, full range of motion, Extremities: nontender, full range of motion Skin: Color pink, dry, no turgor, no rash, no lacerations, no abrasions, no contusions. Lymphatic: Deferred Results Laboratory and Microbiology Lab and Micro Result Laboratory Tests Test 06/17/25 23:19 White Blood Count 6.1 K/uL (4.8-10.8) Red Blood Count 4.77 MIL/uL (4.50-6.20) Hemoglobin 13.7 g/dL (14.0-18.0) L Hematocrit 40.1 % (42-54) L Mean Corpuscular Volume 84.1 fL (79-99) Mean Corpuscular Hemoglobin 28.7 pg (27.0-33.0) Mean Corpuscular Hemoglobin Concent 34.2 g/dL (32.0-36.0) Red Cell Distribution Width 13.7 % (11.0-15.5) Platelet Count 210 K/uL (130-400) Mean Platelet Volume 11.5 fL (7.5-10.5) H Immature Granulocyte % (Auto) 0.2 % (0-1) Neutrophils (%) (Auto) 51.9 % (40.0-77.0) Lymphocytes (%) (Auto) 36.2 % (21.0-51.0) Monocytes (%) (Auto) 8.7 % (3.0-13.0) Eosinophils (%) (Auto) 2.3 % (0.0-8.0) Basophils (%) (Auto) 0.7 % (0.0-5.0) Neutrophils # (Auto) 3.2 K/uL (1.8-7.7) Lymphocytes # (Auto) 2.2 K/uL (1.0-4.8) Monocytes # (Auto) 0.5 K/uL (0.1-1.0) Eosinophils # (Auto) 0.14 K/uL (0.00-0.70) Basophils # (Auto) 0.04 K/uL (0.00-0.20) Absolute Immature Granulocyte (auto 0.01 K/uL (0-1) Nucleated Red Blood Cells 0.0 % (0.0-0.19) Labs Reviewed?: Yes MDM MDM: Differential diagnosis: Intracranial bleed, intracranial mass, anxiety There are no social concerns with this patient. Prescription drug management Prescriptions will include: None Medical management and examination interpretation discussions were had by me with other qualified healthcare professionals as indicated for the patient's care. ED Course Orders Procedure Category Date Status Time Ct Head/Brain W/O CT 06/17/25 Resulted Contrast 22:04 Cbc With Differential LAB 06/17/25 Complete 22:04 Ibuprofen (Motrin) PHA 06/18/25 Complete 00:30 Current Medications Medications (Trade) Dose Ordered Sig/Carmen Route PRN Reason Start Time Stop Time Status Last Admin Dose Admin Ibuprofen (moTRIN) 400 mg ONCE ONCE PO 06/18/25 00:30 06/18/25 00:31 DC Vital Signs Date Time Temp Pulse Resp B/P (MAP) Pulse Ox O2 Delivery O2 Flow Rate FiO2 06/17/25 22:01 97.2 88 18 106/58 99 Room Air DX & DISP Disposition: Discharge Departure Impression: Primary Impression: Headache, unspecified Condition: Stable Additional Instructions: Your blood work and CT scan are unremarkable. Please follow up with your primary care doctor for further evaluation. Return to the ER for any new or worsening symptoms Referrals: KSENIA NIELSEN (PCP) Time of Disposition: 00:51 I have reviewed the case, and I agree with, Diagnosis and Plan I performed the substantive portion of the visit. I have reviewed and personally made and approve the management plan that is documented in the note by myself or the JOÃO. I acknowledge for responsibility for the patient's management plan. JAGUAR SANCHES PAC Jun 18, 2025 00:52
--- NOTE | 2025-06-18 00:53 | NUR ---
PT REFUSED MOTRIN STATING " I DON'T HAVE THE PAIN RIGHT NOW" PT DID TAKE THE CUP OF WATER. TOLERATED PO FLUIDS WELL
[2025-06-18 01:03] VITALS: BP 109/62; PULSE 84; RESP 15; TEMP 97.4; O2SAT 99
== END 2025-06-18 01:04 | disposition home or self-care (01) ==
LOC: EDH 21:59
DX: R51.9 Headache, unspecified (principal); R20.0 Anesthesia of skin; Z88.0 Allergy status to penicillin; Z88.1 Allergy status to other antibiotic agents; Z91.041 Radiographic dye allergy status; Z79.899 Other long term (current) drug therapy
CPT/HCPCS: 36415; 70450; 85025; 99284

== ENCOUNTER 2025-06-26 19:19 | Emergency (ER) | payer MEDICAID ==
[~2025-06-26] VITALS: Ht 175.3 cm; Wt 68.0 kg
[2025-06-26 19:21] VITALS: BP 99/59; PULSE 89; RESP 20; TEMP 97.4
--- NOTE | 2025-06-26 19:26 | ERN ---
ED Note History of Present Illness Stated Complaint: C/O "FOOD GOING DOWN WRONG [place]" Chief Complaint: Choking Time Seen by MD: 19:22 Dictation: PATIENT IS A 39-YEAR-OLD MALE COMING IN WITH HIS FATHER WITH COMPLAINTS OF HAVING A CHOKING EPISODE WHILE HE WAS EATING 1 HOUR PRIOR TO ARRIVAL. HE STATES IT LASTED VERY BRIEFLY, CURRENTLY HAS NO COMPLAINTS OF JUST WANTED TO GO GET CHECKED OUT. VOICE IS CLEAR, BILATERAL BREATH SOUNDS CLEAR TO AUSCULTATION, NO STRIDOR. Allergies: Coded Allergies: Iodinated Contrast Media (Unverified Allergy, Unknown, 10/09/24) Penicillins (Unverified Allergy, Unknown, 10/09/24) acetaminophen (Unverified Allergy, Unknown, 10/09/24) ceftriaxone (Unverified Allergy, Unknown, 10/09/24) diphenhydramine (Unverified Allergy, Unknown, 04/21/25) Home Meds Active Scripts Ondansetron (Ondansetron Odt) 4 Mg Tab.rapdis, 4 MG PO BID for vomiting for 5 Days, #10 TAB Prov:LIYAH AVILA MD 04/25/25 Ibuprofen (Ibuprofen) 600 Mg Tablet, 600 MG PO Q6H PRN for PAIN, #30 TAB Prov:SARI STROUD GEOMETRY TEACHER 04/21/25 Ondansetron (Ondansetron Odt) 4 Mg Tab.rapdis, 4 MG PO TIDP PRN for nausea, #16 TAB 0 Refills Prov:LEOBARDO DELCID GEOMETRY TEACHER 04/07/25 Ibuprofen (Ibuprofen) 600 Mg Tablet, 600 MG PO Q6H PRN for PAIN, #30 TAB Prov:SARI STROUD GEOMETRY TEACHER 04/06/25 Nitrofurantoin Monohyd/M-Cryst (Macrobid 100 mg Capsule) 100 Mg Capsule, 1 CAP PO BID for 7 Days, #14 CAP 0 Refills Prov:JUAN RAMÍREZ GEOMETRY TEACHER 01/29/25 Benzonatate (Tessalon Perles) 100 Mg Cap, 200 MG PO TID for cough, #60 CAP 0 Refills Prov:SARI STROUD GEOMETRY TEACHER 01/23/25 Ketorolac Tromethamine (Ketorolac Tromethamine) 10 Mg Tablet, 1 TAB PO TID for pain for 5 Days, #15 TAB 0 Refills Prov:JAGUAR SANCHES PAC 01/02/25 Prednisone (Prednisone) 20 Mg Tablet, 1 TAB PO AD for 6 Days, #14 TAB 0 Refills TAKE 1 TAB BY MOUTH THREE TIMES PER DAY X3 DAYS, THEN TAKE 1 TAB BY MOUTH TWICE A DAY X2 DAYS, THEN TAKE 1 TAB BY MOUTH ONCE A DAY X1 DAY. Prov:ANDRY MUHAMMAD MD 01/02/25 Azithromycin (Azithromycin) 500 Mg Tablet, 1 TAB PO DAILY for 7 Days, #7 TAB 0 Refills Prov:ANDRY MUHAMMAD MD 01/02/25 Fluticasone Propionate (Flonase Nasal [place]) 50 Mcg/Actuation [place], 2 SPRAY NS DAILY for 7 Days, #16 GM 0 Refills Prov:JUAN RAMÍREZ GEOMETRY TEACHER 12/21/24 Ondansetron HCl (Zofran) 4 Mg/2 Ml Inj, 4 MG IM BIDAC PRN for ABDOMINAL PAIN for 5 Days, #10 ML Prov:JENNA PINEDA MD 11/22/24 Cyclobenzaprine HCl (Cyclobenzaprine HCl ER) 15 Mg Cap.er.24h, 1 CAP PO DAILY for 10 Days, #10 CAP 0 Refills Prov:JENNA PINEDA MD 11/22/24 Clotrimazole (Clotrimazole) 1 % Cream..g., 1 APPL TP BID for 7 Days, #30 GM 0 Refills apply to affected area(s) Prov:JAGUAR SANCHES [facility] 10/28/24 Past Medical History Past Medical History: Other Additional Past Medical Hx: HX OF CEREBRAL PALSY Surgical History: Other Surgical History Other: heart sx, lul leg sx Family History: Negative Social History: Negative RN Note Reviewed/Agreed w/PFSH: Yes Review of System Dictation CONSTITUTIONAL: NEGATIVE EXCEPT FOR HPI HEAD/FACE: NEGATIVE EXCEPT FOR HPI EENT: NEGATIVE EXCEPT FOR HPI RESPIRATORY: NEGATIVE EXCEPT FOR HPI CHOKING EPISODE ON FOOD GASTROINTESTINAL/ABDOMINAL: NEGATIVE EXCEPT FOR HPI GENITOURINARY: NEGATIVE EXCEPT FOR HPI MUSCULOSKELETAL: NEGATIVE EXCEPT FOR HPI INTEGUMENTARY: NEGATIVE EXCEPT FOR HPI NEUROLOGICAL/PSYCH: NEGATIVE EXCEPT FOR HPI HEMATOLOGIC/LYMPHATIC: NEGATIVE EXCEPT FOR HPI ALL SYSTEMS NEGATIVE, EXCEPT NOTED ABOVE. 13 POINT REVIEW OF SYSTEMS ASSESSED AND ALL NEGATIVE EXCEPT FOR ABOVE. Initial Vital Sign VS Vital Signs Date Time Temp Pulse Resp B/P (MAP) Pulse Ox O2 Delivery O2 Flow Rate FiO2 06/26/25 19:21 97.3 89 20 99/59 100 Room Air Physical Exam Dictation VITAL SIGNS REVIEWED GENERAL APPEARANCE: ALERT, ORIENTED X 3, NO ACUTE DISTRESS, WELL DEVELOPED, NOURISHED. HEAD AND FACE: NON-TRAUMATIC. EYES: PERRL, PINK CONJUNCTIVAS, EYELID NO TRAUMA, ANTERIOR CHAMBER WITH ARCUS SENILIS. EARS: PINNAS INTACT AND NO SIGNS OF TRAUMA OR ERYTHEMA EAR CANALS CLEAR AND NO DISCHARGE TM NO ERYTHEMA NOSE: NO DISCHARGE, NO BLEEDING. OROPHARYNX: MOUTH NORMAL, TONGUE PINK, VOICE IS CLEAR, NO ESOPHAGEAL FOREIGN BODY NOTED. PHARYNX CLEAR,NO ERYTHEMA, TONSILS NO EXUDATES, NO ABSCESSES NOTED, MUCOUS MEMBRANE MOIST NECK: SUPPLE, NON-TENDER, NO THYROMEGALY, NO MASSES, NO JVD, NO BRUITS BREAST:DEFERRED CHEST:NO TENDERNESS, NO CREPITUS, NO PARADOXICAL MOVEMENT, NO RETRACTIONS LUNGS:CLEAR, WELL-VENTILATED, SYMMETRIC, NO RALES, NO WHEEZING, NO RHONCHI, NO STRIDOR, GOOD BREATH SOUNDS BILATERALLY BILATERAL BREATH SOUNDS CLEAR TO AUSCULTATION NO STRIDOR NO TACHYPNEA HEART: REGULAR RATE, REGULAR RHYTHM, NO MURMUR, NO GALLOPS VASCULAR: NO PERIPHERAL EDEMA, ABDOMEN: SOFT, POSITIVE BOWEL SOUNDS, NONDISTENDED, NO GUARDING, NONTENDER, NO REBOUND, NO MASSES NO HEPATOMEGALY, NO SPLENOMEGALY, NO NARVAEZ'S SIGN, NO HERNIAS. RECTAL: DEFERRED GENITAL: DEFERRED NEUROLOGICAL: NORMAL SPEECH SENSORY FUNCTION INTACT HISTORY OF EPILEPSY IN IN WHEELCHAIR. MUSCULOSKELETAL: NECK NONTENDER, FULL RANGE OF MOTION, BACK NONTENDER, FULL RANGE OF MOTION, EXTREMITIES: NONTENDER, FULL RANGE OF MOTION SKIN: COLOR PINK, DRY, NO TURGOR, NO RASH, NO LACERATIONS, NO ABRASIONS, NO CONTUSIONS. LYMPHATIC: DEFERRED Results (Laboratory/Radiology) Laboratory/Radiology CHEST X-RAY NEGATIVE NO RADIOPAQUE FOREIGN BODY OR FOOD BOLUS NOTED Labs Reviewed?: Yes ED Course ED Course Orders Procedure Category Date Status Time Chest 1vw RAD 06/26/25 Taken 19:24 Vital Signs Date Time Temp Pulse Resp B/P (MAP) Pulse Ox O2 Delivery O2 Flow Rate FiO2 06/26/25 19:21 97.3 89 20 99/59 100 Room Air 2009/PATIENT IS SATURATING 100% ON ROOM AIR BILATERAL BREATH SOUNDS REMAINED CLEAR VOICE IS CLEAR Medical Decision Making MDM MEDICAL DECISION-MAKING BASED ON PHYSICAL ASSESSMENT AND CHEST X-RAY RULE OUT KACIE/FOREIGN BODY CHEST X-RAY NEGATIVE PATIENT IS VOICE REMAINS CLEAR SATURATING 100% ON ROOM AIR DISCHARGED HOME WITH FATHER DX & DISP Disposition: Discharge Departure Impression: Primary Impression: Choking episode Condition: Stable Additional Instructions: FOLLOW-UP WITH PRIMARY CARE PROVIDER IN 1 TO 2 DAYS. TAKE MEDICATIONS DIRECTED HERE IN THE EMERGENCY ROOM. OKAY TO CONTINUE HOME MEDICATIONS UNLESS OTHERWISE DISCUSSED DURING YOUR VISIT IN THE EMERGENCY ROOM TODAY. RETURN TO YOUR NEAREST EMERGENCY ROOM IF SYMPTOMS WORSEN OR IF THERE IS NO IMPROVEMENT. CALL 911 IF YOU NEED IMMEDIATE ASSISTANCE. TAKE TYLENOL OR MOTRIN [id number] NEEDED AND IF NO CONTRAINDICATIONS ARE PRESENT. INCREASE ORAL HYDRATION. A WOUND CULTURE OR URINE CULTURE WAS ORDERED HERE IN THE EMERGENCY ROOM DEPARTMENT PLEASE FOLLOW-UP WITH PRIMARY CARE PROVIDER AND ADVISE THEM TO GET REPEAT PORTS FROM OUR FACILITY. IF YOU HAD ANY EHSAN WRAP/SPLINTS THAT WERE APPLIED HERE, PLEASE DO NOT REMOVE THEM UNTIL YOU SEE YOUR PRIMARY CARE OR SPECIALTY. DIET AND ACTIVITY TOLERATED FOLLOW UP WITH YOUR DOCTOR IN THE NEXT 1-2 DAYS Referrals: KSENIA NIELSENP-BC (PCP) Time of Disposition: 20:12 I have reviewed the case, and I agree with, Diagnosis and Plan SARI STROUD Jun 26, 2025 19:26
--- NOTE | 2025-06-26 20:21 | HMCIMG ---
EXAM: CR Chest, 1 View. CLINICAL HISTORY: EPISODE ON FOOD 1 HOUR PRIOR TO ARRIVAL. COMPARISON: 06/15 22:11 EDT CR - CHEST 1VW FINDINGS: Stable since prior exam. LUNGS: The lungs show no infiltrate or other acute finding. PLEURAL SPACES: No pleural effusion or pneumothorax. MEDIASTINUM: Cardiac size and mediastinal contours within normal limits. BONES: No acute osseous abnormality. IMPRESSION: No acute cardiopulmonary pathology is evident. /[place]
== END 2025-06-26 20:17 | disposition home or self-care (01) ==
LOC: EDH 19:19
DX: R09.89 Other specified symptoms and signs involving the circulatory and respiratory systems (principal); Z88.0 Allergy status to penicillin; Z88.1 Allergy status to other antibiotic agents; Z91.041 Radiographic dye allergy status
CPT/HCPCS: 71045; 99283

== ENCOUNTER 2025-06-30 22:07 | Emergency (ER) | payer MEDICAID ==
[~2025-06-30] VITALS: Ht 170.2 cm; Wt 68.0 kg
--- NOTE | 2025-06-30 22:12 | NUR ---
UA CUP PROVIDED
--- NOTE | 2025-06-30 22:13 | NUR ---
REPORT TO HARRIET SUBRAMANIAN
[2025-06-30 22:25] LABS: ADD UA MICROSCOPIC NO; APPEARANCE,URINE CLEAR (CLEAR); GLUCOSE, URINE (UA) NEGATIVE (NEGATIVE); LEUKOCYTE ESTERASE ,URINE NEGATIVE Leu/uL (NEGATIVE); NITRATE,URINE NEGATIVE (NEGATIVE); OCCULT BLOOD,URINE NEGATIVE (NEGATIVE)
[2025-06-30 23:19] LABS: IMMATURE GRANULOCYTE ABSOLUTE 0.02 K/uL (0-1); NUCLEATED RED BLOOD CELLS 0.0 % (0.0-0.19); PLATELET COUNT (AUTO) 192 K/uL (130-400); RED BLOOD CELL COUNT(AUTO) 4.99 MIL/uL (4.50-6.20); RED CELL DISTRIBUTION WIDTH 13.3 % (11.0-15.5); WHITE BLOOD COUNT (AUTO) 6.1 K/uL (4.8-10.8)
[2025-06-30 23:27] LABS: CREATININE 0.8 mg/dL (0.5-1.3); GLOMERULAR FILTR. RATE CALC 117.0 mL/min (>90); GLUCOSE,RANDOM 93.0 mg/dL (70-105); SODIUM SERUM 133.0 mmol/L (136-145); UREA NITROGEN, BLOOD 15.0 mg/dL (7-18)
--- NOTE | 2025-06-30 23:32 | ERN ---
ED Note History of Present Illness Stated Complaint: URINARY FREQUENCY Chief Complaint: Urinary Frequency Time Seen by MD: 22:11 Time Seen by Midlevel: 22:11 Dictation: The patient is a 39-year-old male with a history of cerebral palsy who presents to the emergency department with complaints of frequent urination onset today. Patient denies any hematuria, burning urination, penile discharge. Denies any fevers. Patient reports that he has been increasing his fluid intake today which could be causing his frequent urination but reports concerned for his electrolytes. Allergies: Coded Allergies: Iodinated Contrast Media (Unverified Allergy, Unknown, 10/09/24) Penicillins (Unverified Allergy, Unknown, 10/09/24) acetaminophen (Unverified Allergy, Unknown, 10/09/24) ceftriaxone (Unverified Allergy, Unknown, 10/09/24) diphenhydramine (Unverified Allergy, Unknown, 04/21/25) Home Meds Active Scripts Ondansetron (Ondansetron Odt) 4 Mg Tab.rapdis, 4 MG PO BID for vomiting for 5 Days, #10 TAB Prov:LIYAH AVILA MD 04/25/25 Ibuprofen (Ibuprofen) 600 Mg Tablet, 600 MG PO Q6H PRN for PAIN, #30 TAB Prov:SARI STROUDP 04/21/25 Ondansetron (Ondansetron Odt) 4 Mg Tab.rapdis, 4 MG PO TIDP PRN for nausea, #16 TAB 0 Refills Prov:LEOBARDO DELCIDP 04/07/25 Ibuprofen (Ibuprofen) 600 Mg Tablet, 600 MG PO Q6H PRN for PAIN, #30 TAB Prov:SARI STROUD RECORDINGS LIBRARIAN 04/06/25 Nitrofurantoin Monohyd/M-Cryst (Macrobid 100 mg Capsule) 100 Mg Capsule, 1 CAP PO BID for 7 Days, #14 CAP 0 Refills Prov:JUAN RAMÍREZP 01/29/25 Benzonatate (Tessalon Perles) 100 Mg Cap, 200 MG PO TID for cough, #60 CAP 0 Re fills Prov:SARI STROUDP 01/23/25 Ketorolac Tromethamine (Ketorolac Tromethamine) 10 Mg Tablet, 1 TAB PO TID for pain for 5 Days, #15 TAB 0 Refills Prov:JAGUAR SANCHES PAC 01/02/25 Prednisone (Prednisone) 20 Mg Tablet, 1 TAB PO AD for 6 Days, #14 TAB 0 Refills TAKE 1 TAB BY MOUTH THREE TIMES PER DAY X3 DAYS, THEN TAKE 1 TAB BY MOUTH TWICE A DAY X2 DAYS, THEN TAKE 1 TAB BY MOUTH ONCE A DAY X1 DAY. Prov:ANDRY MUHAMMAD MD 01/02/25 Azithromycin (Azithromycin) 500 Mg Tablet, 1 TAB PO DAILY for 7 Days, #7 TAB 0 Refills Prov:ANDRY MUHAMMAD MD 01/02/25 Fluticasone Propionate (Flonase Nasal [place]) 50 Mcg/Actuation [place], 2 SPRAY NS DAILY for 7 Days, #16 GM 0 Refills Prov:JUAN RAMÍREZ 12/21/24 Ondansetron HCl (Zofran) 4 Mg/2 Ml Inj, 4 MG IM BIDAC PRN for ABDOMINAL PAIN for 5 Days, #10 ML Prov:JENNA PINEDA MD 11/22/24 Cyclobenzaprine HCl (Cyclobenzaprine HCl ER) 15 Mg Cap.er.24h, 1 CAP PO DAILY for 10 Days, #10 CAP 0 Refills Prov:JENNA PINEDA MD 11/22/24 Clotrimazole (Clotrimazole) 1 % Cream..g., 1 APPL TP BID for 7 Days, #30 GM 0 Refills apply to affected area(s) Prov:JAGUAR SANCHES [facility] 10/28/24 Past Medical History Past Medical History: Other Additional Past Medical Hx: CEREBRAL PALSY Surgical History: None Surgical History Other: heart sx, lul leg sx Family History: Negative Social History: Negative RN Note Reviewed/Agreed w/PFSH: Yes Review of System Dictation Constitutional: Negative for fever,chills, and weight loss Eyes: Negative for injury, pain,redness, and discharge ENT: Negative for injury,pain or swelling Cardiovascular: Negative for chest pain, palpitations, and edema Respiratory: Negative for shortness of breath, cough, and wheezing, Abdomen/GI: Negative for abdominal pain, nausea, vomiting, diarrhea, and constipation Back: Negative for injury and pain : Positive for frequent urination MS/Extremity: Negative for injury and deformity Skin: Negative for rash, and discoloration Neuro: Negative for headache, weakness, numbness, tingling, and seizure Psych: Negative for suicide ideation, homicidal ideation, and hallucinations Initial Vital Sign VS Vital Signs Date Time Temp Pulse Resp B/P (MAP) Pulse Ox O2 Delivery O2 Flow Rate FiO2 06/30/25 22:08 97.0 84 16 102/69 100 Room Air Physical Exam Dictation Vital Signs reviewed General Appearance: Alert, oriented x 3, no acute distress, well developed, nourished. Head and Face: non-traumatic. Eyes: PERRL, pink conjunctivas, eyelid no trauma, anterior chamber with arcus senilis. Ears: Pinnas intact and no signs of trauma or erythema ear canals clear and no discharge TM no erythema Nose: No discharge, no bleeding. Oropharynx: Mouth normal, tongue pink. pharynx clear,no erythema, tonsils no exudates, no abscesses noted, mucous membrane moist Neck: Supple, non-tender, no thyromegaly, no masses, no JVD, no bruits Breast:Deferred Chest:No tenderness, no crepitus, no paradoxical movement, no retractions Lungs:Clear, well-ventilated, symmetric, no rales, no wheezing, no rhonchi, no stridor, good breath sounds bilaterally Heart: Regular rate, regular rhythm, no murmur, no gallops Vascular: no peripheral edema, Abdomen: Soft, positive bowel sounds, nondistended, no guarding, nontender, no rebound, no masses no hepatomegaly, no splenomegaly, no Lamar's sign, no hernias. Rectal: Deferred Genital: Deferred Neurological: Normal speech, sensory function intact Musculoskeletal: Neck nontender, full range of motion, back nontender, full range of motion, Extremities: nontender, full range of motion Skin: Color pink, dry, no turgor, no rash, no lacerations, no abrasions, no contusions. Lymphatic: Deferred Results (Laboratory/Radiology) Laboratory/Radiology Laboratory Tests Test 06/30/25 22:14 06/30/25 23:08 Urine Color LIGHT-YELLOW (YELLOW) Urine Appearance CLEAR (CLEAR) Urine pH 7.5 (5.0-8.0) Urine Specific [place] 1.015 (1.001-1.031) Urine Protein NEGATIVE mg/dL (NEGATIVE) Urine Glucose (UA) NEGATIVE mg/dL (NEGATIVE) Urine Ketones NEGATIVE mg/dL (NEGATIVE) Urine Occult Blood NEGATIVE (NEGATIVE) Urine Nitrate NEGATIVE (NEGATIVE) Urine Bilirubin NEGATIVE mg/dL (NEGATIVE) Urine Urobilinogen 0.2 mg/dL (0.2-1.0) Urine Leukocyte Esterase NEGATIVE [place]/uL White Blood Count 6.1 K/uL (4.8-10.8) Red Blood Count 4.99 MIL/uL (4.50-6.20) Hemoglobin 14.3 g/dL (14.0-18.0) Hematocrit 42.8 % (42-54) Mean Corpuscular Volume 85.8 fL (79-99) Mean Corpuscular Hemoglobin 28.7 pg (27.0-33.0) Mean Corpuscular Hemoglobin Concent 33.4 g/dL (32.0-36.0) Red Cell Distribution Width 13.3 % (11.0-15.5) Platelet Count 192 K/uL (130-400) Mean Platelet Volume 11.9 fL (7.5-10.5) H Immature Granulocyte % (Auto) 0.3 % (0-1) Neutrophils (%) (Auto) 55.5 % (40.0-77.0) Lymphocytes (%) (Auto) 33.4 % (21.0-51.0) Monocytes (%) (Auto) 8.9 % (3.0-13.0) Eosinophils (%) (Auto) 1.2 % (0.0-8.0) Basophils (%) (Auto) 0.7 % (0.0-5.0) Neutrophils # (Auto) 3.4 K/uL (1.8-7.7) Lymphocytes # (Auto) 2.0 K/uL (1.0-4.8) Monocytes # (Auto) 0.5 K/uL (0.1-1.0) Eosinophils # (Auto) 0.07 K/uL (0.00-0.70) Basophils # (Auto) 0.04 K/uL (0.00-0.20) Absolute Immature Granulocyte (auto 0.02 K/uL (0-1) Nucleated Red Blood Cells 0.0 % (0.0-0.19) Sodium Level 133 mmol/L (136-145) L Potassium Level 3.8 mmol/L (3.5-5.1) Chloride Level 96 mmol/L (101-111) L Carbon Dioxide Level 33 mmol/L (21-32) H Blood Urea Nitrogen 15 mg/dL (7-18) Creatinine 0.8 mg/dL (0.5-1.3) Glomerular Filtration Rate Calc 117 mL/min (>90) Random Glucose 93 mg/dL (70-105) Total Calcium 8.8 mg/dL (8.5-10.1) Labs Reviewed?: Yes ED Course ED Course Orders Procedure Category Date Status Time Urinalysis Profile LAB 06/30/25 Complete 22:11 Cbc With Differential LAB 06/30/25 Complete 22:34 Basic Metabolic Panel LAB 06/30/25 Complete 22:34 Vital Signs Date Time Temp Pulse Resp B/P (MAP) Pulse Ox O2 Delivery O2 Flow Rate FiO2 06/30/25 22:08 97.0 84 16 102/69 100 Room Air Medical Decision Making MDM The patient is a 39-year-old male with a history of cerebral palsy who presents to the emergency department with complaints of frequent urination onset today. Patient denies any hematuria, burning urination, penile discharge. Denies any fevers. Patient reports that he has been increasing his fluid intake today which could be causing his frequent urination but reports concerned for his electrolytes. CBC showed no leukocytosis, no anemia, chemistry showed mild hyponatremia, normal kidney function. Urinalysis was unremarkable. On physical exam patient is in no acute distress, nontoxic appearance, abdomen soft and nontender, stable vital signs. Patient will be discharged to follow up with PCP. Differential diagnosis: Dehydration, UTI, dysuria Need for hospitalization: Patient does not meet criteria for hospitalization. There are no social concerns with this patient. DX & DISP Disposition: Discharge Departure Impression: Primary Impression: Frequent urination Condition: Stable Additional Instructions: Your labs were unremarkable. Your urinalysis did not show any signs of infection. Please follow up with the primary doctor in 1-2 days. FOLLOW-UP WITH PRIMARY CARE PROVIDER IN 1 TO 2 DAYS. TAKE MEDICATIONS DIRECTED HERE IN THE EMERGENCY ROOM. OKAY TO CONTINUE HOME MEDICATIONS UNLESS OTHERWISE DISCUSSED DURING YOUR VISIT IN THE EMERGENCY ROOM TODAY. RETURN TO YOUR NEAREST EMERGENCY ROOM IF SYMPTOMS WORSEN OR IF THERE IS NO IMPROVEMENT. CALL 911 IF YOU NEED IMMEDIATE ASSISTANCE. TAKE TYLENOL [id number] NEEDED AND IF NO CONTRAINDICATIONS ARE PRESENT. INCREASE ORAL HYDRATION. A WOUND CULTURE OR URINE CULTURE WAS ORDERED HERE IN THE EMERGENCY ROOM DEPARTMENT PLEASE FOLLOW-UP WITH PRIMARY CARE PROVIDER AND ADVISE THEM TO GET REPEAT PORTS FROM OUR FACILITY. IF YOU HAD ANY EHSAN WRAP/SPLINTS THAT WERE APPLIED HERE, PLEASE DO NOT REMOVE THEM UNTIL YOU SEE YOUR PRIMARY CARE OR SPECIALTY. Referrals: KSENIA NIELSEN- (PCP) Time of Disposition: 23:32 I have reviewed the case, and I agree with, Diagnosis and Plan JUAN RAMÍREZ Jun 30, 2025 23:32
[2025-06-30 23:49] VITALS: BP 119/79; PULSE 76; RESP 18; TEMP 98.3; O2SAT 98
== END 2025-06-30 23:50 | disposition home or self-care (01) ==
LOC: EDH 22:07
DX: R35.0 Frequency of micturition (principal); G80.9 Cerebral palsy, unspecified; Z88.0 Allergy status to penicillin; Z88.1 Allergy status to other antibiotic agents; Z91.041 Radiographic dye allergy status
CPT/HCPCS: 36415; 80048; 81003; 85025; 99283

== ENCOUNTER 2025-07-10 17:35 | Emergency (ER) | payer MEDICAID ==
[~2025-07-10] VITALS: Ht 170.2 cm; Wt 68.0 kg
--- NOTE | 2025-07-10 18:36 | ERN ---
ED Note History of Present Illness Stated Complaint: UTI Chief Complaint: UTI without Fever Time Seen by MD: 17:51 Dictation: 39-year-old male presents to ER complaints of urinary frequency. Patient history of cerebral palsy and is wheelchair bound. Patient wants to be ev aluated for possible UTI Allergies: Coded Allergies: Iodinated Contrast Media (Unverified Allergy, Unknown, 10/09/24) Penicillins (Unverified Allergy, Unknown, 10/09/24) acetaminophen (Unverified Allergy, Unknown, 10/09/24) ceftriaxone (Unverified Allergy, Unknown, 10/09/24) diphenhydramine (Unverified Allergy, Unknown, 04/21/25) Home Meds Active Scripts Ondansetron (Ondansetron Odt) 4 Mg Tab.rapdis, 4 MG PO BID for vomiting for 5 Days, #10 TAB Prov:LIYAH AVILA MD 04/25/25 Ibuprofen (Ibuprofen) 600 Mg Tablet, 600 MG PO Q6H PRN for PAIN, #30 TAB Prov:SARI STROUD [employer] MACHINE OPERATOR 04/21/25 Ondansetron (Ondansetron Odt) 4 Mg Tab.rapdis, 4 MG PO TIDP PRN for nausea, #16 TAB 0 Refills Prov:LEOBARDO DELCID [employer] MACHINE OPERATOR 04/07/25 Ibuprofen (Ibuprofen) 600 Mg Tablet, 600 MG PO Q6H PRN for PAIN, #30 TAB Prov:SARI STROUD [employer]ING MACHINE OPERATOR 04/06/25 Nitrofurantoin Monohyd/M-Cryst (Macrobid 100 mg Capsule) 100 Mg Capsule, 1 CAP PO BID for 7 Days, #14 CAP 0 Refills Prov:JUAN RAMÍREZ [employer] MACHINE OPERATOR 01/29/25 Benzonatate (Tessalon Perles) 100 Mg Cap, 200 MG PO TID for cough, #60 CAP 0 Refills Prov:SARI STROUD [employer] MACHINE OPERATOR 01/23/25 Ketorolac Tromethamine (Ketorolac Tromethamine) 10 Mg Tablet, 1 TAB PO TID for pain for 5 Days, #15 TAB 0 Refills Prov:JAGUAR SANCHES PAC 01/02/25 Prednisone (Prednisone) 20 Mg Tablet, 1 TAB PO AD for 6 Days, #14 TAB 0 Refills TAKE 1 TAB BY MOUTH THREE TIMES PER DAY X3 DAYS, THEN TAKE 1 TAB BY MOUTH TWICE A DAY X2 DAYS, THEN TAKE 1 TAB BY MOUTH ONCE A DAY X1 DAY. Prov:ANDRY MUHAMMAD MD 01/02/25 Azithromycin (Azithromycin) 500 Mg Tablet, 1 TAB PO DAILY for 7 Days, #7 TAB 0 Refills Prov:ANDRY MUHAMMAD MD 01/02/25 Fluticasone Propionate (Flonase Nasal [place]) 50 Mcg/Actuation [place], 2 SPRAY NS DAILY for 7 Days, #16 GM 0 Refills Prov:JUAN RAMÍREZ [employer] MACHINE OPERATOR 12/21/24 Ondansetron HCl (Zofran) 4 Mg/2 Ml Inj, 4 MG IM BIDAC PRN for ABDOMINAL PAIN for 5 Days, #10 ML Prov:JENNA PINEDA MD 11/22/24 Cyclobenzaprine HCl (Cyclobenzaprine HCl ER) 15 Mg Cap.er.24h, 1 CAP PO DAILY for 10 Days, #10 CAP 0 Refills Prov:JENNA PINEDA MD 11/22/24 Clotrimazole (Clotrimazole) 1 % Cream..g., 1 APPL TP BID for 7 Days, #30 GM 0 Refills apply to affected area(s) Prov:JAGUAR SANCHES PAC 10/28/24 Past Medical History Past Medical History: Other Additional Past Medical Hx: CEREBRAL PALSY Surgical History: None Surgical History Other: heart sx, lul leg sx Family History: Negative Social History: Negative Review of System Dictation CONSTITUTIONAL: NEGATIVE FOR FEVER,CHILLS, AND WEIGHT LOSS EYES: NEGATIVE FOR INJURY, PAIN,REDNESS, AND DISCHARGE ENT: NEGATIVE FOR INJURY,PAIN OR SWELLING CARDIOVASCULAR: NEGATIVE FOR CHEST PAIN, PALPITATIONS, AND EDEMA RESPIRATORY: NEGATIVE FOR SHORTNESS OF BREATH, COUGH, WHEEZING, AND PLEURITIC CHEST PAIN ABDOMEN/GI: NEGATIVE FOR ABDOMINAL PAIN, NAUSEA, VOMITING AND DIARRHEA. BACK: NEGATIVE FOR PAIN OR INJURY : Positive for urinary frequency MS/EXTREMITY: NEGATIVE FOR INJURY AND DEFORMITY SKIN: NEGATIVE FOR RASH, AND DISCOLORATION NEURO: NEGATIVE FOR HEADACHE, WEAKNESS PSYCH: NEGATIVE FOR SUICIDE IDEATION, HOMICIDAL IDEATION, AND HALLUCINATIONS ALLERGY/IMMUNOLOGY: NEGATIVE FOR HIVES, RASH, AND ALLERGIES ALL SYSTEMS NEGATIVE, EXCEPT NOTED ABOVE. 13 POINT REVIEW OF SYSTEMS ASSESSED AND ALL NEGATIVE EXCEPT FOR ABOVE. Initial Vital Sign VS Vital Signs Date Time Temp Pulse Resp B/P (MAP) Pulse Ox O2 Delivery O2 Flow Rate FiO2 07/10/25 17:36 97.9 93 18 110/61 100 Room Air 0 07/10/25 18:00 21 Physical Exam Dictation General: awake, alert, NAD Head/Face: Normocephalic, atraumatic Eyes: PERRL, EOMI, vision at baseline ENT: oral cavity clear, TMs clear, no signs of infection Neck: Trachea midline, supple, no nuchal rigidity Cardiovascular: RRR, normal no JVD Respiratory: CTAB, no respiratory distress, No rales or wheezes Abdomen: Soft, non-tender, non-distended, normal bowel sounds, no guarding or rebound. Skin: Warm, dry, normal turgor, no rash MS/Extremity: Pulses equal, no cyanosis, neurovascular intact, FROM Neuro: COAx4, GCS 15, Psych: Normal behavior, mood, and affect normal Results (Laboratory/Radiology) Laboratory/Radiology Laboratory Tests Test 07/10/25 19:15 Urine Color COLORLESS (YELLOW) Urine Appearance CLEAR (CLEAR) Urine pH 7.0 (5.0-8.0) Urine Specific [place] 1.006 (1.001-1.031) Urine Protein NEGATIVE mg/dL (NEGATIVE) Urine Glucose (UA) NEGATIVE mg/dL (NEGATIVE) Urine Ketones NEGATIVE mg/dL (NEGATIVE) Urine Occult Blood NEGATIVE (NEGATIVE) Urine Nitrate NEGATIVE (NEGATIVE) Urine Bilirubin NEGATIVE mg/dL (NEGATIVE) Urine Urobilinogen 0.2 mg/dL (0.2-1.0) Urine Leukocyte Esterase NEGATIVE Nito/uL ED Course ED Course Orders Procedure Category Date Status Time Urinalysis Profile LAB 07/10/25 Complete 18:22 Vital Signs Date Time Temp Pulse Resp B/P (MAP) Pulse Ox O2 Delivery O2 Flow Rate FiO2 07/10/25 18:00 97.9 93 18 110/61 97 Room Air* 0 21 07/10/25 17:36 97.9 93 18 110/61 100 Room Air 0 Medical Decision Making MDM MDM: Differential diagnosis: UTI, cystitis, Rationale: Tests considered and ordered secondary to shared decision making include: labs, ECG and radiology Previous outside records reviewed: Old ER visits. Risk of complication and/or morbidity or mortality of patient management: None Medications-Per medication reconciliation Need for hospitalization: Patient does NOT meet criteria for hospitalization. Need for emergency major/minor surgery: No There are no social concerns with this patient. Prescription drug management Prescriptions will include symptomatic care Patient's prior external medical records from other ER visits were reviewed by me as indicated. Prior testing and results from previous visits were reviewed. Prior tests were taken into account with medical decision making and resource utilization, independent historian/historians were used to obtain complete medical history. I independently interpreted the test that were performed, results were reviewed by me and considered findings on radiology if ordered. Patient advised urinalysis negative. Patient will be discharged home. DX & DISP Disposition: Discharge Departure Impression: Primary Impression: Frequent urination Condition: Stable Additional Instructions: urine negative. FOLLOW-UP WITH YOUR PCP IN 24-72 HOURS AND IN THE EVENT IF SYMPTOMS WORSEN OR AN EMERGENCY OVERNIGHT REPORT TO THE ED IMMEDIATELY Referrals: KSENIA NIELSEN-OUSMANE (PCP) GUILLE PRESLEY Jul 10, 2025 18:36
[2025-07-10 19:23] LABS: APPEARANCE,URINE CLEAR (CLEAR); GLUCOSE, URINE (UA) NEGATIVE (NEGATIVE); LEUKOCYTE ESTERASE ,URINE NEGATIVE Leu/uL (NEGATIVE); NITRATE,URINE NEGATIVE (NEGATIVE); OCCULT BLOOD,URINE NEGATIVE (NEGATIVE)
[2025-07-10 19:28] LABS: ADD UA MICROSCOPIC NO
[2025-07-10 20:22] VITALS: BP 142/66; PULSE 75; RESP 18; TEMP 98.5; O2SAT 98
== END 2025-07-10 20:22 | disposition home or self-care (01) ==
LOC: EDH 17:35
DX: R35.0 Frequency of micturition (principal); Z88.0 Allergy status to penicillin; Z88.1 Allergy status to other antibiotic agents; Z91.041 Radiographic dye allergy status
CPT/HCPCS: 81003; 99283

== ENCOUNTER 2025-07-12 20:39 | Emergency (ER) | payer MEDICAID ==
[~2025-07-12] VITALS: Ht 170.2 cm; Wt 68.0 kg
--- NOTE | 2025-07-12 21:03 | NUR ---
PT CARE ASSUMED AT THIS TIME
--- NOTE | 2025-07-12 21:06 | ERN ---
General Chief Complaint: Abdominal Pain Stated Complaint: C/O BURNING TO ABD, DIZZINESS, NAUSEA Time Seen by MD: 20:48 Source: patient History of Present Illness Initial Comments 39-year-old male with cerebral palsy who is complaining of a blow torch to his stomach as well as nausea, dizziness and intermittent chills. He was seen in his ED two days ago with concerns of a urinary tract infection but the UA was negative and he was discharged without any antibiotics. He does take Nexium for GERD. Allergies: Coded Allergies: Iodinated Contrast Media (Unverified Allergy, Unknown, 10/09/24) Penicillins (Unverified Allergy, Unknown, 10/09/24) acetaminophen (Unverified Allergy, Unknown, 10/09/24) ceftriaxone (Unverified Allergy, Unknown, 10/09/24) diphenhydramine (Unverified Allergy, Unknown, 04/21/25) Home Meds Active Scripts Ondansetron (Ondansetron Odt) 4 Mg Tab.rapdis, 4 MG PO BID for vomiting for 5 Days, #10 TAB Prov:LIYAH AVILA MD 04/25/25 Ibuprofen (Ibuprofen) 600 Mg Tablet, 600 MG PO Q6H PRN for PAIN, #30 TAB Prov:SARI STROUD LAST INSERTER 04/21/25 Ondansetron (Ondansetron Odt) 4 Mg Tab.rapdis, 4 MG PO TIDP PRN for nausea, #16 TAB 0 Refills Prov:LEOBARDO DELCID LAST INSERTER 04/07/25 Ibuprofen (Ibuprofen) 600 Mg Tablet, 600 MG PO Q6H PRN for PAIN, #30 TAB Prov:SARI STROUD LAST INSERTER 04/06/25 Nitrofurantoin Monohyd/M-Cryst (Macrobid 100 mg Capsule) 100 Mg Capsule, 1 CAP PO BID for 7 Days, #14 CAP 0 Refills Prov:JUAN RAMÍREZP 01/29/25 Benzonatate (Tessalon Perles) 100 Mg Cap, 200 MG PO TID for cough, #60 CAP 0 Refills Prov:SARI STROUDP 01/23/25 Ketorolac Tromethamine (Ketorolac Tromethamine) 10 Mg Tablet, 1 TAB PO TID for pain for 5 Days, #15 TAB 0 Refills Prov:JAGUAR SANCHES [facility] 01/02/25 Prednisone (Prednisone) 20 Mg Tablet, 1 TAB PO AD for 6 Days, #14 TAB 0 Refills TAKE 1 TAB BY MOUTH THREE TIMES PER DAY X3 DAYS, THEN TAKE 1 TAB BY MOUTH TWICE A DAY X2 DAYS, THEN TAKE 1 TAB BY MOUTH ONCE A DAY X1 DAY. Prov:ANDRY MUHAMMAD MD 01/02/25 Azithromycin (Azithromycin) 500 Mg Tablet, 1 TAB PO DAILY for 7 Days, #7 TAB 0 Refills Prov:ANDRY MUHAMMAD MD 01/02/25 Fluticasone Propionate (Flonase Nasal [place]) 50 Mcg/Actuation [place], 2 SPRAY NS DAILY for 7 Days, #16 GM 0 Refills Prov:JUAN RAMÍREZ 12/21/24 Ondansetron HCl (Zofran) 4 Mg/2 Ml Inj, 4 MG IM BIDAC PRN for ABDOMINAL PAIN for 5 Days, #10 ML Prov:JENNA PINEDA MD 11/22/24 Cyclobenzaprine HCl (Cyclobenzaprine HCl ER) 15 Mg Cap.er.24h, 1 CAP PO DAILY for 10 Days, #10 CAP 0 Refills Prov:JENNA PINEDA MD 11/22/24 Clotrimazole (Clotrimazole) 1 % Cream..g., 1 APPL TP BID for 7 Days, #30 GM 0 Refills apply to affected area(s) Prov:JAGUAR SANCHES [facility] 10/28/24 Past Medical History Past Medical History: Other Medical History Other: CEREBRAL PALSY Past Surgical History: Other Surgical History Other: HEART VALVE SX Family History Family History: Negative Social History Social History: Negative Constitutional: (+) chills EENTM: (-) eye pain, (-) blurred vision, (-) tearing, (-) double vision, (-) ear pain, (-) ear discharge, (-) nose pain, (-) nose congestion, (-) throat pain, (-) Throat swelling, (-) mouth pain, (-) tooth pain, (-) mouth swelling, (-) other documentation Respiratory: (-) cough, (-) orthopnea, (-) short of breath, (-) stridor, (-) wheezing, (-) other documentation Cardiovascular: (-) chest pain, (-) edema, (-) palpitations, (-) syncope, (-) d yspnea on exertion, (-) other documentation Gastrointestinal/Abdominal: (+) nausea, (+) abdominal pain Genitourinary: (-) penile discharge, (-) dysuria, (-) frequency, (-) hematuria, (-) pain, (-) other documentation Musculoskeletal: (-) Neck pain, (-) back pain, (-) Flank Pain, (-) joint pain, (-) joint swelling, (-) muscle pain, (-) muscle stiffness, (-) gout, (-) other documentation Skin: (-) laceration, (-) contusion, (-) abrasion, (-) abscess, (-) rash, (-) change in color, (-) change in hair, (-) change in nails, (-) diaphoresis, (-) dryness, (-) other documentation Neuro: (-) altered mental status, (-) headache, (-) syncope, (-) paralysis, (-) numbness, (-) seizure, (-) pre-existing deficit, (-) tremors, (-) weakness, (-) dizziness, (-) slurred speech, (-) vertigo, (-) other documentation Physical Exam General Appearance: (+) no apparent distress Orientation: (+) alert, (+) oriented x 3 Head/Face Trauma: No Eye: bilateral eye normal inspection, bilateral eye PERRL, bilateral eye EOMI Ear, Nose, Throat: (+) hearing grossly normal, (+) normal ENT inspection, (+) moist mucous membraine Neck: (+) normal inspection, (+) supple, (+) full range of motion Respiratory: (+) chest non-tender, (+) lungs clear, (+) well ventilated Heart: (+) regular, (+) no gallop Vascular: (+) no edema, (+) normal peripheral pulse Gastrointestinal: (+) soft, (+) non-tender, (+) bowel sound present Results Laboratory and Microbiology Lab and Micro Result Laboratory Tests Test 07/12/25 21:15 White Blood Count 5.5 K/uL (4.8-10.8) Red Blood Count 4.95 MIL/uL (4.50-6.20) Hemoglobin 14.1 g/dL (14.0-18.0) Hematocrit 42.2 % (42-54) Mean Corpuscular Volume 85.3 fL (79-99) Mean Corpuscular Hemoglobin 28.5 pg (27.0-33.0) Mean Corpuscular Hemoglobin Concent 33.4 g/dL (32.0-36.0) Red Cell Distribution Width 13.4 % (11.0-15.5) Platelet Count 185 K/uL (130-400) Mean Platelet Volume 11.7 fL (7.5-10.5) H Immature Granulocyte % (Auto) 0.2 % (0-1) Neutrophils (%) (Auto) 54.1 % (40.0-77.0) Lymphocytes (%) (Auto) 33.7 % (21.0-51.0) Monocytes (%) (Auto) 8.2 % (3.0-13.0) Eosinophils (%) (Auto) 3.3 % (0.0-8.0) Basophils (%) (Auto) 0.5 % (0.0-5.0) Neutrophils # (Auto) 3.0 K/uL (1.8-7.7) Lymphocytes # (Auto) 1.8 K/uL (1.0-4.8) Monocytes # (Auto) 0.5 K/uL (0.1-1.0) Eosinophils # (Auto) 0.18 K/uL (0.00-0.70) Basophils # (Auto) 0.03 K/uL (0.00-0.20) Absolute Immature Granulocyte (auto 0.01 K/uL (0-1) Nucleated Red Blood Cells 0.0 % (0.0-0.19) Sodium Level 136 mmol/L (136-145) Potassium Level 3.9 mmol/L (3.5-5.1) Chloride Level 100 mmol/L (101-111) L Carbon Dioxide Level 31 mmol/L (21-32) Blood Urea Nitrogen 13 mg/dL (7-18) Creatinine 0.9 mg/dL (0.5-1.3) Glomerular Filtration Rate Calc 113 mL/min (>90) Random Glucose 93 mg/dL (70-105) Total Calcium 9.0 mg/dL (8.5-10.1) MDM MDM: Differential diagnosis: Patient may indeed have a urinary tract infection, GERD, peptic ulcer disease, dehydration, esophagitis Rationale: Tests considered and ordered secondary to shared decision making include: Previous outside records reviewed: Old ER visits. Risk of complication and/or morbidity or mortality of patient management: None Medications-Per medication reconciliation Need for hospitalization: Patient does meet criteria for hospitalization. Need for emergency major/minor surgery: No There are no social concerns with this patient. Prescription drug management Prescriptions will include symptomatic care Patient's prior external medical records from other ER visits were reviewed by me as indicated. Prior testing and results from previous visits were reviewed. Prior tests were taken into account with medical decision making and resource utilization, independent historian/historians were used to obtain complete medical history. Laboratory studies are normal. UA is still pending. I independently interpreted the test that were performed, results were reviewed by me and considered findings on radiology if ordered. Patient is refusing GI cocktail. Patient refusing Zofran. Without being able to test for GERD via the GI cocktail and normal labs, I am not sure what I can offer the patient. Discussing the care plan with the patient it seems he is most concerned about constipation, but without further workup I can not say if the constipation alone is the cause of his heartburn. Any case the patient would like to be discharged from the emergency room. ED Course Orders Procedure Category Date Status Time Urinalysis Profile LAB 07/12/25 Logged 21:00 Basic Metabolic Panel LAB 07/12/25 Complete 21:00 Cbc With Differential LAB 07/12/25 Complete 21:00 Lidocaine Hcl 2% PHA 07/12/25 Complete Viscous (Lidocaine Hcl 21:00 Mag/Alum/Simeth 30ml PHA 07/12/25 Complete (Maalox Plus 30ml) 21:00 Dicyclomine Hcl PHA 07/12/25 Complete (Bentyl 10mg/5ml 21:00 Lactated Ringers PHA 07/12/25 Complete 1000ml (Lactated 21:00 Ondansetron 4mg Inj PHA 07/12/25 Complete (Zofran 4mg Inj) 21:00 Current Medications Medications (Trade) Dose Ordered Sig/Carmen Route PRN Reason Start Time Stop Time Status Last Admin Dose Admin Al Hydroxide/Mg Hydroxide (MAALox PLUS 30ML) 30 ml ONCE ONCE PO 07/12/25 21:00 07/12/25 21:05 DC Dicyclomine HCl (Bentyl 10mg/5ml Syrup) 10 mg ONCE ONCE PO 07/12/25 21:00 07/12/25 21:05 DC Lactated Ringer's (Lactated Ringers 1000ml) 1,000 ml BOLUS STAT IV 07/12/25 21:00 07/12/25 21:09 DC Lidocaine HCl (Lidocaine HCl 2% Viscous) 10 ml ONCE ONCE PO 07/12/25 21:00 07/12/25 21:05 DC Ondansetron HCl (zoFRAN 4MG INJ) 4 mg ONCE ONCE IVP 07/12/25 21:00 07/12/25 21:05 DC Vital Signs Date Time Temp Pulse Resp B/P (MAP) Pulse Ox O2 Delivery O2 Flow Rate FiO2 07/12/25 21:03 98.1 80 15 133/66 100 Room Air* 0 21 07/12/25 20:41 98.1 90 20 119/62 100 Room Air DX & DISP Disposition: Discharge Departure Impression: Primary Impression: Dizziness Additional Impressions: Constipation, GERD (gastroesophageal reflux disease) Condition: Stable Additional Instructions: It seems your biggest concern was constipation. I recommend GoLYTELY, which can be purchased [id number] and is a powder that you dissolve in water and and take every night. Alternatively you can take magnesium citrate which will evacuate your bowels effectively. Please see your primary care physician about your bowel movements if you continue to have problems with constipation. Referrals: KSENIA NIELSENP-BC (PCP) JENNA PINEDA MD Jul 12, 2025 21:06
--- NOTE | 2025-07-12 21:16 | NUR ---
ED RN ENTERED ED ROOM TO BEGIN AN IV. PER PT; PT REFUSED IV INSERTION. PT REFUSED IV MEDICATIONS AND IV FLUIDS. PT EDUCATED ABOUT THE IMPORTANCE OF FLUID AND MEDICATION TREATMENT. PT VERBALIZED UNDERSTANDING, PT STILL REFUSING AT THIS TIME. ED MD NICOLE MADE AWARE.
[2025-07-12] MEDS: LACTATED RINGERS 1000ML IV STA (21:22)
[2025-07-12 21:24] LABS: IMMATURE GRANULOCYTE ABSOLUTE 0.01 K/uL (0-1); NUCLEATED RED BLOOD CELLS 0.0 % (0.0-0.19); PLATELET COUNT (AUTO) 185 K/uL (130-400); RED BLOOD CELL COUNT(AUTO) 4.95 MIL/uL (4.50-6.20); RED CELL DISTRIBUTION WIDTH 13.4 % (11.0-15.5); WHITE BLOOD COUNT (AUTO) 5.5 K/uL (4.8-10.8)
[2025-07-12] MEDS: MAG/ALUM/SIMETH 30 ML UDCUP PO ONE (21:27)
[2025-07-12] MEDS: LIDOCAINE HCL 2% VISCOUS 15 ML UDCUP PO ONE (21:27)
[2025-07-12] MEDS: DICYCLOMINE HCL 10 MG/5 ML ML PO ONE (21:27)
[2025-07-12 21:31] LABS: CREATININE 0.9 mg/dL (0.5-1.3); GLOMERULAR FILTR. RATE CALC 113.0 mL/min (>90); GLUCOSE,RANDOM 93.0 mg/dL (70-105); SODIUM SERUM 136.0 mmol/L (136-145); UREA NITROGEN, BLOOD 13.0 mg/dL (7-18)
--- NOTE | 2025-07-12 21:34 | NUR ---
ED MD NICOLE MADE AWARE OF PT REFUSING ALL MEDICATIONS. PT EDUCATED ON MEDICATIONS ORDERED. PT VERBALIZED UNDERSTANDING OF MEDICATION ADMINISTRATION. PT STILL REFUSING AT THIS TIME.
[2025-07-12 22:05] VITALS: BP 125/81; PULSE 76; RESP 16; TEMP 98.1; O2SAT 100
== END 2025-07-12 22:11 | disposition home or self-care (01) ==
LOC: EDH 20:39
DX: R42 Dizziness and giddiness (principal); K59.00 Constipation, unspecified; K21.9 Gastro-esophageal reflux disease without esophagitis; Z88.0 Allergy status to penicillin; Z91.041 Radiographic dye allergy status; Z88.6 Allergy status to analgesic agent; Z88.1 Allergy status to other antibiotic agents; Z79.899 Other long term (current) drug therapy
CPT/HCPCS: 36415; 80048; 85025; 99282; 99283

== ENCOUNTER 2025-07-17 18:49 | Emergency (ER) | payer MEDICAID ==
[~2025-07-17] VITALS: Ht 170.2 cm; Wt 68.0 kg
[2025-07-17 19:56] LABS: IMMATURE GRANULOCYTE ABSOLUTE 0.01 K/uL (0-1); NUCLEATED RED BLOOD CELLS 0.0 % (0.0-0.19); PLATELET COUNT (AUTO) 127 K/uL (130-400); RED BLOOD CELL COUNT(AUTO) 4.83 MIL/uL (4.50-6.20); RED CELL DISTRIBUTION WIDTH 13.6 % (11.0-15.5); WHITE BLOOD COUNT (AUTO) 4.1 K/uL (4.8-10.8)
[2025-07-17 20:11] LABS: CREATININE 1.0 mg/dL (0.5-1.3); GLOMERULAR FILTR. RATE CALC 99.0 mL/min (>90); GLUCOSE,RANDOM 70.0 mg/dL (70-105); SODIUM SERUM 133.0 mmol/L (136-145); UREA NITROGEN, BLOOD 17.0 mg/dL (7-18)
--- NOTE | 2025-07-17 20:12 | HMCIMG ---
EXAM: CR Chest, 1 View. CLINICAL HISTORY: cough COMPARISON: None provided. FINDINGS: LUNGS: The lungs show no infiltrate or other acute finding. PLEURAL SPACES: No evidence of pleural effusion or pneumothorax. MEDIASTINUM: The cardiomediastinal silhouette is within normal limits. BONES: No aggressive appearing osseous lesion seen. IMPRESSION: No acute cardiopulmonary pathology is evident. /[place]
--- NOTE | 2025-07-17 20:45 | ERN ---
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 Patient concerned for aspiration pneumonia. Patient has been here seen at the ER multiple times for similar complaints. Patient reports he went to his PCP who referred him to ENT but does not have an appointment into a few months from now. Reports he has not drank any water because he is scared to choke. Denies any sore throat. Reports he was swabbed for strep at his doctor which was negative. Allergies: Coded Allergies: Iodinated Contrast Media (Unverified Allergy, Unknown, 10/09/24) Penicillins (Unverified Allergy, Unknown, 10/09/24) acetaminophen (Unverified Allergy, Unknown, 10/09/24) ceftriaxone (Unverified Allergy, Unknown, 10/09/24) diphenhydramine (Unverified Allergy, Unknown, 04/21/25) Home Meds Active Scripts Ondansetron (Ondansetron Odt) 4 Mg Tab.rapdis, 4 MG PO BID for vomiting for 5 Days, #10 TAB Prov:LIYAH AVILA MD 04/25/25 Ibuprofen (Ibuprofen) 600 Mg Tablet, 600 MG PO Q6H PRN for PAIN, #30 TAB Prov:SARI STROUD SPOOLER 04/21/25 Ondansetron (Ondansetron Odt) 4 Mg Tab.rapdis, 4 MG PO TIDP PRN for nausea, #16 TAB 0 Refills Prov:LEOBARDO DELCID SPOOLER 04/07/25 Ibuprofen (Ibuprofen) 600 Mg Tablet, 600 MG PO Q6H PRN for PAIN, #30 TAB Prov:SARI STROUD SPOOLER 04/06/25 Nitrofurantoin Monohyd/M-Cryst (Macrobid 100 mg Capsule) 100 Mg Capsule, 1 CAP PO BID for 7 Days, #14 CAP 0 Refills Prov:JUAN RAMÍREZ SPOOLER 01/29/25 Benzonatate (Tessalon Perles) 100 Mg Cap, 200 MG PO TID for cough, #60 CAP 0 Refills Prov:SARI STROUD SPOOLER 01/23/25 Ketorolac Tromethamine (Ketorolac Tromethamine) 10 Mg Tablet, 1 TAB PO TID for pain for 5 Days, #15 TAB 0 Refills Prov:JAGUAR SANCHES [facility] 01/02/25 Prednisone (Prednisone) 20 Mg Tablet, 1 TAB PO AD for 6 Days, #14 TAB 0 Refills TAKE 1 TAB BY MOUTH THREE TIMES PER DAY X3 DAYS, THEN TAKE 1 TAB BY MOUTH TWICE A DAY X2 DAYS, THEN TAKE 1 TAB BY MOUTH ONCE A DAY X1 DAY. Prov:ANDRY MUHAMMAD MD 01/02/25 Azithromycin (Azithromycin) 500 Mg Tablet, 1 TAB PO DAILY for 7 Days, #7 TAB 0 Refills Prov:ANDRY MUHAMMAD MD 01/02/25 Fluticasone Propionate (Flonase Nasal Villarreal) 50 Mcg/Actuation Villarreal, 2 SPRAY NS DAILY for 7 Days, #16 GM 0 Refills Prov:JUAN RAMÍREZ SPOOLER 12/21/24 Ondansetron HCl (Zofran) 4 Mg/2 Ml Inj, 4 MG IM BIDAC PRN for ABDOMINAL PAIN for 5 Days, #10 ML Prov:JENNA PINEDA MD 11/22/24 Cyclobenzaprine HCl (Cyclobenzaprine HCl ER) 15 Mg Cap.er.24h, 1 CAP PO DAILY for 10 Days, #10 CAP 0 Refills Prov:JENNA PINEDA MD 11/22/24 Clotrimazole (Clotrimazole) 1 % Cream..g., 1 APPL TP BID for 7 Days, #30 GM 0 Refills apply to affected area(s) Prov:JAGUAR SANCHES [facility] 10/28/24 Past Medical History Past Medical History: Other Additional Past Medical Hx: CEREBRAL PALSY Surgical History: Other Surgical History Other: HEART VALVE SX Family History: Negative Social History: Negative RN Note Reviewed/Agreed w/PFSH: Yes Review of System Dictation Constitutional: Negative for fever,chills, and weight loss Eyes: Negative for injury, pain,redness, and discharge ENT: Negative for injury,pain or swelling Cardiovascular: Negative for chest pain, palpitations, and edema Respiratory: Negative for shortness of breath, and wheezing positive for cough, Abdomen/GI: Negative for abdominal pain, nausea, vomiting, diarrhea, and constipation Back: Negative for injury and pain : Negative for injury, bleeding and discharge MS/Extremity: Negative for injury and deformity Skin: Negative for rash, and discoloration Neuro: Negative for headache, weakness, numbness, tingling, and seizure Psych: Negative for suicide ideation, homicidal ideation, and hallucinations Initial Vital Sign VS Vital Signs Date Time Temp Pulse Resp B/P (MAP) Pulse Ox O2 Delivery O2 Flow Rate FiO2 07/17/25 18:50 118 20 100/63 98 07/17/25 19:50 99.0 Room Air* 0 21 Physical Exam Dictation Vital Signs reviewed General Appearance: Alert, oriented x 3, no acute distress, well developed, nourished. Head and Face: non-traumatic. Eyes: PERRL, pink conjunctivas, eyelid no trauma, anterior chamber with arcus senilis. Ears: Pinnas intact and no signs of trauma or erythema ear canals clear and no discharge TM no erythema Nose: No discharge, no bleeding. Oropharynx: Mouth normal, tongue pink. pharynx clear,no erythema, tonsils no exudates, no abscesses noted, mucous membrane moist Neck: Supple, non-tender, no thyromegaly, no masses, no JVD, no bruits Breast:Deferred Chest:No tenderness, no crepitus, no paradoxical movement, no retractions Lungs:Clear, well-ventilated, symmetric, no rales, no wheezing, no rhonchi, no stridor, good breath sounds bilaterally Heart: Regular rate, regular rhythm, no murmur, no gallops Vascular: no peripheral edema, Abdomen: Soft, positive bowel sounds, nondistended, no guarding, nontender, no rebound, no masses no hepatomegaly, no splenomegaly, no Lamar's sign, no hernias. Rectal: Deferred Genital: Deferred Neurological: Normal speech, sensory function intact Musculoskeletal: Neck nontender, full range of motion, back nontender, full range of motion, Extremities: nontender, Skin: Color pink, dry, no turgor, no rash, no lacerations, no abrasions, no contusions. Lymphatic: Deferred Results (Laboratory/Radiology) Laboratory/Radiology Laboratory Tests Test 07/17/25 19:38 White Blood Count 4.1 K/uL (4.8-10.8) L Red Blood Count 4.83 MIL/uL (4.50-6.20) Hemoglobin 13.9 g/dL (14.0-18.0) L Hematocrit 42.2 % (42-54) Mean Corpuscular Volume 87.4 fL (79-99) Mean Corpuscular Hemoglobin 28.8 pg (27.0-33.0) Mean Corpuscular Hemoglobin Concent 32.9 g/dL (32.0-36.0) Red Cell Distribution Width 13.6 % (11.0-15.5) Platelet Count 127 K/uL (130-400) L Mean Platelet Volume 12.1 fL (7.5-10.5) H Immature Granulocyte % (Auto) 0.2 % (0-1) Neutrophils (%) (Auto) 73.5 % (40.0-77.0) Lymphocytes (%) (Auto) 10.8 % (21.0-51.0) L Monocytes (%) (Auto) 14.8 % (3.0-13.0) H Eosinophils (%) (Auto) 0.5 % (0.0-8.0) Basophils (%) (Auto) 0.2 % (0.0-5.0) Neutrophils # (Auto) 3.0 K/uL (1.8-7.7) Lymphocytes # (Auto) 0.4 K/uL (1.0-4.8) L Monocytes # (Auto) 0.6 K/uL (0.1-1.0) Eosinophils # (Auto) 0.02 K/uL (0.00-0.70) Basophils # (Auto) 0.01 K/uL (0.00-0.20) Absolute Immature Granulocyte (auto 0.01 K/uL (0-1) Nucleated Red Blood Cells 0.0 % (0.0-0.19) Sodium Level 133 mmol/L (136-145) L Potassium Level 4.3 mmol/L (3.5-5.1) Chloride Level 96 mmol/L (101-111) L Carbon Dioxide Level 22 mmol/L (21-32) Blood Urea Nitrogen 17 mg/dL (7-18) Creatinine 1.0 mg/dL (0.5-1.3) Glomerular Filtration Rate Calc 99 mL/min (>90) Random Glucose 70 mg/dL (70-105) Total Calcium 9.0 mg/dL (8.5-10.1) SERVICE 14 REASON: cough ORDERING PHYSICIAN: JUAN RAMÍREZ PROCEDURE: CXR1VW - CHEST 1VW EXAM: CR Chest, 1 View. CLINICAL HISTORY: cough COMPARISON: None provided. FINDINGS: LUNGS: The lungs show no infiltrate or other acute finding. PLEURAL SPACES: No evidence of pleural effusion or pneumothorax. MEDIASTINUM: The cardiomediastinal silhouette is within normal limits. BONES: No aggressive appearing osseous lesion seen. IMPRESSION: No acute cardiopulmonary pathology is evident. /Warren DICTATED BY: JEFFERY Labs Reviewed?: Yes ED Course ED Course Orders Procedure Category Date Status Time Chest 1vw RAD 07/17/25 Resulted 19:15 Cbc With Differential LAB 07/17/25 Complete 19:15 Basic Metabolic Panel LAB 07/17/25 Complete 19:15 0.9%Nacl 1000ml (Ns PHA 07/17/25 Complete 1000ml) 20:30 Current Medications Medications (Trade) Dose Ordered Sig/Carmen Route PRN Reason Start Time Stop Time Status Last Admin Dose Admin Sodium Chloride 1,000 ml @ 0 mls/hr ONCE ONCE IV 07/17/25 20:30 07/17/25 20:31 DC 07/17/25 21:03 Vital Signs Date Time Temp Pulse Resp B/P (MAP) Pulse Ox O2 Delivery O2 Flow Rate FiO2 07/17/25 21:04 109 18 107/63 98 Room Air* 0 21 07/17/25 19:50 99.0 102 20 102/72 99 Room Air* 0 21 07/17/25 18:50 118 20 100/63 98 Medical Decision Making MDM The patient is a 39-year-old male with a history of [place]'s palsy who presents to the emergency department with complaints of choking episode while drinking water. Patient concerned for aspiration pneumonia. Patient has been here seen at the ER multiple times for similar complaints. Patient reports he went to his PCP who referred him to ENT but does not have an appointment into a few months from now. Reports he has not drank any water because he is scared to choke. Denies any sore throat. Reports he was swabbed for strep at his doctor which was negative. CBC showed no leukocytosis, mild normocytic anemia, chemistry showed mild hyponatremia, mild hypochloremia, creatinine of 1.0. Patient has a L of IV fluids.I offered patient to get swabbed and he refused at this time and stated he already was swabbed. On physical exam patient is in no acute distress, airway intact. Patient able to handle secretions without difficulty. clear lung sounds. We will refer patient to hat lining blocker for further evaluation. Differential diagnosis: Aspiration pneumonia, dehydration, pharyngitis Need for hospitalization: Patient does not meet criteria for hospitalization. There are no social concerns with this patient. DX & DISP Disposition: Discharge Departure Impression: Primary Impression: Choking episode Additional Impression: Mild dehydration Condition: Stable Scripts Fluticasone Propionate (Flonase Nasal Villarreal) 50 Mcg/Actuation Villarreal 2 SPRAY NS DAILY for 7 Days, #16 GM 0 Refills Prov: JUAN RAMÍREZ 07/17/25 Additional Instructions: Your labs were unremarkable. Your chest x-ray did not show any pneumonia. Please follow up with the primary doctor in 1-2 days. Please return to ER if symptoms worsen please FOLLOW-UP WITH PRIMARY CARE PROVIDER IN 1 TO 2 DAYS. TAKE MEDICATIONS DIRECTED HERE IN THE EMERGENCY ROOM. OKAY TO CONTINUE HOME MEDICATIONS UNLESS OTHERWISE DISCUSSED DURING YOUR VISIT IN THE EMERGENCY ROOM TODAY. RETURN TO YOUR NEAREST EMERGENCY ROOM IF SYMPTOMS WORSEN OR IF THERE IS NO IMPROVEMENT. CALL 911 IF YOU NEED IMMEDIATE ASSISTANCE. TAKE TYLENOL [id number] NEEDED AND IF NO CONTRAINDICATIONS ARE PRESENT. INCREASE ORAL HYDRATION. A WOUND CULTURE OR URINE CULTURE WAS ORDERED HERE IN THE EMERGENCY ROOM DEPARTMENT PLEASE FOLLOW-UP WITH PRIMARY CARE PROVIDER AND ADVISE THEM TO GET REPEAT PORTS FROM OUR FACILITY. IF YOU HAD ANY EHSAN WRAP/SPLINTS THAT WERE APPLIED HERE, PLEASE DO NOT REMOVE THEM UNTIL YOU SEE YOUR PRIMARY CARE OR SPECIALTY. Referrals: KSENIA NIELSEN- (PCP) LC BERGMAN MD Time of Disposition: 21:23 I have reviewed the case, and I agree with, Diagnosis and Plan JUAN ARMÍREZ Jul 17, 2025 20:45
[2025-07-17] MEDS: 0.9%NACL 1000ML 1,000 ML IV ONE (21:03)
[2025-07-17 23:13] VITALS: BP 110/66; PULSE 96; RESP 18; TEMP 98.6; O2SAT 98
== END 2025-07-17 23:14 | disposition home or self-care (01) ==
LOC: EDH 18:49
DX: E86.0 Dehydration (principal); R09.89 Other specified symptoms and signs involving the circulatory and respiratory systems; Z88.0 Allergy status to penicillin; Z88.1 Allergy status to other antibiotic agents; Z91.041 Radiographic dye allergy status
CPT/HCPCS: 99284; 96360; 71045; 96361; 80048; 85025; 36415; J7030